=== PATIENT | female | born 1960 | race Caucasian/White ===

== ENCOUNTER 2017-07-01 11:54 | Emergency (ER) | payer MEDICAID, SELFPAY ==
[2017-07-01 11:55] VITALS: BP 94/57; PULSE 112; RESP 18; TEMP 38.3; O2SAT 97; BMI 27.4
--- NOTE | 2017-07-01 12:37 | RAD_ITS ---
STUDY: X-RAY CHEST REASON FOR EXAM: Female, 57 years old. One day history of fever, cough and dyspnea. TECHNIQUE: PA and lateral views of the chest. COMPARISON: None. FINDINGS: Hyperinflation. The lungs are clear. There is a pectus excavatum deformity. There is no demonstrated pleural abnormality. Normal size heart. Normal mediastinum and queenie. Normal visualized pulmonary arteries. There is atherosclerotic calcification of the aortic arch with tortuosity. Normal visualized thoracic spine. Normal visualized ribs, clavicles, and shoulders. There is no demonstrated abnormality of the visualized soft tissue structures of the upper abdomen. RAD/Chest PA and Lateral IMPRESSION: Hyperinflation. Pectus excavatum deformity. Electronically Signed: Jalen Garcia MD at 13:36 EDT Tel [phone], Service support ,
[2017-07-01 13:15] LABS: Mucous, Urine 0 SEEN /hpf (<or=2+); Red Blood Cells-Urine 0 SEEN /hpf (0-5)
[2017-07-01 13:19] LABS: Color, Urine Yellow (Yellow); Glucose, Dipstick Normal (Normal); Ketone-Dipstick Negative (Negative); Leukocyte Esterase-Dipstick 500 /ul (Negative); Nitrite-Dipstick Negative (Negative); Occult Blood-Urine 25 /ul (Negative); Protein-Dipstick 15 mg/dl (Negative); Urine Bilirubin Dipstick Negative (Negative); Urine Clarity Sl. Cloudy (Clear); Urine Urobilinogen Normal (Normal)
[2017-07-01 13:26] LABS: Bacteria 1+ /hpf (None Seen); Squamous Epithelial Cells - UA 5-10 SEEN /hpf (5-10); White Blood Cells 10-25 SEEN /hpf (0-5)
[2017-07-01 14:02] VITALS: BP 93/59; PULSE 89; RESP 16; TEMP 38; O2SAT 96
--- NOTE | 2017-07-01 14:19 | ED.VISSUMM ---
- ER Visit Summary Date of Service: 07/01/17 Chief Complaint: Upper respiratory infection and possible urinary tract infection History of Present Illness: The patient is a 57 F who presents with upper respiratory congestion and possible urinary tract infection that began yesterday. Patient states she has been having some fevers and chills at home yesterday. Patient states she has some aching all over. Patient states she has a history of frequent urinary tract infections and states this feels similar to those. Patient also admits to a headache and a productive cough. Patient is unsure of the color of the sputum. Patient denies any nausea or vomiting. Patient denies any other symptoms. Physical Examination: Vital signs show blood pressure 93/59 and a temperature of 100.4. Remaining vital signs are stable. Patient is in no acute distress. Oral mucosa is pink and moist. Tympanic membranes are clear bilaterally. Neck is supple. Trachea is midline. There is no JVD or lymphadenopathy. Heart was regular rate and rhythm. Lungs are clear and equal bilateral. There is good respiratory effort noted. Abdomen is soft. Bowel sounds are normal. There is no tenderness noted. There is no rebound or guarding noted. Cranial nerves II through XII are intact. There are no focal motor or sensory deficits noted. The remaining physical exam is within normal limits. Test Results: Urinalysis showed evidence of urinary tract infection. Chest x-ray does not show any acute cardiopulmonary process. Emergency Department Course and Treatment: Patient felt better on reevaluation. Patient was given a prescription for Cipro. Patient was instructed to follow-up with her primary care physician in 7-10 days. She understood and was agreeable with the plan. All questions were answered. Disposition: Discharge home Impression: Urinary tract infection This note was generated with [employer] dictation software. It may contain incorrect words, spelling, and punctuation that were not noted in review of the chart prior to signing ED Disposition - Plan for ED Patient: Disposition: Home or Assisted Living Chief Complaint: Cold Sx Diagnosis: Urinary tract infection Instructions: ED UTI Cystitis Female Prescriptions: Ciprofloxacin [Cipro] 500 mg PO BID 5 Days #10 tab Referrals: Care Physician,No Primary [Primary Care Provider] -
--- NOTE | 2017-07-01 14:27 | ED.DCSUM_ITS ---
- ER Visit Summary Date of Service: 07/01/17 Chief Complaint: Upper respiratory infection and possible urinary tract infection History of Present Illness: The patient is a 57 F who presents with upper respiratory congestion and possible urinary tract infection that began yesterday. Patient states she has been having some fevers and chills at home yesterday. Patient states she has some aching all over. Patient states she has a history of frequent urinary tract infections and states this feels similar to those. Patient also admits to a headache and a productive cough. Patient is unsure of the color of the sputum. Patient denies any nausea or vomiting. Patient denies any other symptoms. Physical Examination: Vital signs show blood pressure 93/59 and a temperature of 100.4. Remaining vital signs are stable. Patient is in no acute distress. Oral mucosa is pink and moist. Tympanic membranes are clear bilaterally. Neck is supple. Trachea is midline. There is no JVD or lymphadenopathy. Heart was regular rate and rhythm. Lungs are clear and equal bilateral. There is good respiratory effort noted. Abdomen is soft. Bowel sounds are normal. There is no tenderness noted. There is no rebound or guarding noted. Cranial nerves II through XII are intact. There are no focal motor or sensory deficits noted. The remaining physical exam is within normal limits. Test Results: Urinalysis showed evidence of urinary tract infection. Chest x- ray does not show any acute cardiopulmonary process. Emergency Department Course and Treatment: Patient felt better on reevaluation. Patient was given a prescription for Cipro. Patient was instructed to follow- up with her primary care physician in 7-10 days. She understood and was agreeable with the plan. All questions were answered. Disposition: Discharge home Impression: Urinary tract infection This note was generated with [employer] dictation software. It may contain incorrect words, spelling, and punctuation that were not noted in review of the chart prior to signing ED Disposition - Plan for ED Patient: Disposition: Home or Assisted Living Chief Complaint: Cold Sx Diagnosis: Urinary tract infection Instructions: ED UTI Cystitis Female Prescriptions: Ciprofloxacin [Cipro] 500 mg PO BID 5 Days #10 tab Referrals: Care Physician,No Primary [Primary Care Provider] -
[2017-07-01 14:29] VITALS: BP 139/87; PULSE 84; RESP 22; O2SAT 97
--- NOTE | 2017-07-01 14:30 | ED.RN ---
THIS NURSE REVIEWED D/C INSTRUCTIONS WITH PT. PT VERBALIZED UNDERSTANDING OF INSTRUCTIONS. PT DENIES FURTHER NEEDS OR QUESTIONS AT THIS TIME.
== END 2017-07-01 14:30 | disposition home or self-care (01) ==
PROVIDERS: Emergency Provider Emergency Medicine
DX: N39.0 Urinary tract infection, site not specified (principal); Z87.440 Personal history of urinary (tract) infections; Z72.0 Tobacco use
CPT/HCPCS: 71046; 81001; 99282

== ENCOUNTER 2017-07-06 15:10 | Emergency (ER) | payer MEDICAID, SELFPAY ==
[2017-07-06 15:10] VITALS: BP 108/57; PULSE 77; RESP 16; TEMP 36.6; O2SAT 99; BMI 26.8
--- NOTE | 2017-07-06 15:29 | RAD_ITS ---
STUDY: X-RAY CHEST REASON FOR EXAM: Female, 57 years old. Cough TECHNIQUE: Frontal and lateral views of the chest were obtained. COMPARISON: July 01, 2017 FINDINGS: The lungs are hyperinflated. There are no focal airspace opacities. There is no demonstrated pleural abnormality. The cardiac silhouette is normal in size. The mediastinum and hilar regions are unremarkable. Normal visualized pulmonary arteries. There is atherosclerotic calcification of the thoracic aorta. The thoracic spine is unremarkable. The visualized ribs, clavicles, and shoulders are unremarkable. There is no demonstrated abnormality of the visualized upper abdomen. RAD/Chest PA and Lateral IMPRESSION: There is no evidence of focal consolidation or pleural effusion. Stable hyperinflation. Electronically Signed: Sia Gold MD at 16:30 EDT Tel Direct: [phone], Service support ,
[2017-07-06] MEDS: 0.9% Normal Saline 1,000 ML 1000 ML IV (15:51)
[2017-07-06] MEDS: Morphine 4 MG/ML Syringe IV (15:51)
[2017-07-06] MEDS: Ondansetron 4 MG/2 ML Vial IV (15:51)
--- NOTE | 2017-07-06 15:53 | ED.VISSUMM ---
- ER Visit Summary Date of Service: 07/06/17 Chief Complaint: Back pain History of Present Illness: The patient is a 57 F with a 5 day history of left lower back pain. Patient was recently seen here for cough and UTI. She completed her course of Cipro and states she no longer has urinary symptoms. She does continue to have cough and states that her upper respiratory symptoms have not significantly improved. She now has left lower back pain that is worse with movement. It is not radiating to her leg. 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 She initially had fever but that has resolved with her antibiotic treatment. Physical Examination: Vital signs are unremarkable. Patient sitting upright in bed no acute distress. Head neck examination is grossly unremarkable. Heart is regular rate and rhythm. Lung sounds are clear with good air movement. Abdomen is soft with mild diffuse tenderness palpation. No guarding or rebound. Active bowel sounds are noted. Back examination was reproducible tenderness in the left lower lumbar paraspinals. She has no CVA tenderness. Extremity examination reveals normal strength and sensation throughout. She has strong distal pulses. Test Results: CBC was a white count of 3.4 with 58% lymphocytes. Chemistry studies reveal creatinine 1.4 which is consistent with her prior values. Urinalysis is a contaminated sample. She has 10-25 epithelial cells only 5-10 white blood cells. Chest x-ray reveals no focal consolidation. Emergency Department Course and Treatment: Patient was given IV fluids, morphine, and Zofran. On repeat evaluation she feels improved. She is reassured with the laboratory and x-ray findings. Patient will be given a short course of [place] for pain. We will avoid anti-inflammatories as she is only 1 functioning kidney. Treatment Plan: [] Disposition: Discharge Impression: 1. Viral URI with cough 2. Left lumbar paraspinal strain This note was generated with [employer] dictation software. It may contain incorrect words, spelling, and punctuation that were not noted in review of the chart prior to signing ED Disposition - Plan for ED Patient: Chief Complaint: Back Referrals: Care Physician,No Primary [Primary Care Provider] -
[2017-07-06 16:13] LABS: Absolute Lymphocyte Count 1.98 X10^3/ul (0.83-4.51); Absolute Neutrophil Count 1.1 X10^3/uL (2.0-7.7); Basophil# 0.01 X10^3/uL; Basophil% 0.3 % (0-1); Eosinophil# 0.01 X10^3/uL; Eosinophils% 0.3 % (0-5); Hematocrit 41.2 % (37-47); Hemoglobin 14.2 g/dl (12.0-15.0); Lymphocyte # 1.98 X10^3/ul (4.0); Lymphocyte % 58.8 % (19-41); Mean Corp Hgb Conc 34.5 g/gl (32-36); Mean Corpuscular Hgb 31.8 pg (27.0-32.0); Mean Corpuscular Volume 92.4 fL (81-99); Mean Platelet Vol. 12.5 fl (6.2-12.0); Monocyte# 0.29 X10^3/uL; Monocyte% 8.6 % (0-10); Neutrophil # 1.08 X10^3/uL (2.7-7.7); Platelet Count 117 K/mm3 (150-450); RBC Distribution Width CV 13.8 % (11.6-14.6); RBC Distribution Width SD 45.7 fl (35.1-43.9); Red Blood Count 4.46 M/mm3 (4.2-5.4); White Blood Count 3.4 K/mm3 (4.4-11.0)
[2017-07-06 16:14] LABS: POSITIVE COUNT NO; POSITIVE DIFFERENTIAL NO; POSITIVE MORPHOLOGY NO
[2017-07-06 16:25] LABS: Anion Gap 10 (5-15); BUN 16 mg/dL (7-18); BUN/Creat Ratio 11.4 RATIO (10-20); Calcium,Total 7.8 mg/dL (8.5-10.1); Chloride 107 mmol/L (98-107); EST Glomerular Filtration Rate 41 mL/min (>60); Est Glom Filt Rate - Afr Amer 50 mL/min (>60); Estimated Creatinine Clearance 38.28 ml/min; Glucose 83 mg/dL (74-106); Potassium 3.6 mmol/L (3.5-5.1); Sodium Level 142 mmol/L (136-145)
[2017-07-06 16:41] VITALS: BP 103/67; PULSE 64; RESP 16; O2SAT 94
[2017-07-06 16:44] LABS: Mucous, Urine 0 SEEN /hpf (<or=2+)
[2017-07-06 16:45] LABS: Color, Urine Yellow (Yellow); Glucose, Dipstick Normal (Normal); Ketone-Dipstick 5 mg/dl (Negative); Leukocyte Esterase-Dipstick 500 /ul (Negative); Nitrite-Dipstick Negative (Negative); Occult Blood-Urine 10 /ul (Negative); Protein-Dipstick 30 mg/dl (Negative); Urine Bilirubin Dipstick Negative (Negative); Urine Clarity Clear (Clear); Urine Urobilinogen 1 mg/dl (Normal)
[2017-07-06 16:54] LABS: Red Blood Cells-Urine 0-5 SEEN /hpf (0-5); White Blood Cells 5-10 SEEN /hpf (0-5)
[2017-07-06 16:55] LABS: Bacteria 2+ /hpf (None Seen); Squamous Epithelial Cells - UA 10-25 SEEN /hpf (5-10)
--- NOTE | 2017-07-06 17:27 | ED.DEP ---
ED Disposition - Plan for ED Patient: Disposition: Home or Assisted Living Chief Complaint: Back Instructions: ED Sprain Strain Lumbar, ED Upper Resp Infec No Abx Tx Prescriptions: Hydrocodone Bitart/Apap 5-325 [[place] 5/325] 1 - 2 tablet PO Q6H PRN PRN 4 Days #12 tablet PRN Reason: Pain Referrals: Fast,Zaira, DO [NON-STAFF] - As Needed
--- NOTE | 2017-07-06 17:29 | DCINST.ED_ITS ---
ED Disposition - Plan for ED Patient: Disposition: Home or Assisted Living Chief Complaint: Back Instructions: ED Sprain Strain Lumbar, ED Upper Resp Infec No Abx Tx Prescriptions: Hydrocodone Bitart/Apap 5-325 [[place] 5/325] 1 - 2 tablet PO Q6H PRN PRN 4 Days # 12 tablet PRN Reason: Pain Referrals: Fast,Zaira, DO [NON-STAFF] - As Needed
[2017-07-06 17:38] VITALS: BP 107/63; PULSE 70; RESP 16; O2SAT 93
== END 2017-07-06 17:38 | disposition home or self-care (01) ==
PROVIDERS: Emergency Provider Emergency Medicine
DX: S39.012A Strain of muscle, fascia and tendon of lower back, initial encounter (principal); J06.9 Acute upper respiratory infection, unspecified; R05 Cough; Z87.440 Personal history of urinary (tract) infections; Z85.54 Personal history of malignant neoplasm of ureter; Z72.0 Tobacco use; X58.XXXA Exposure to other specified factors, initial encounter; Y93.9 Activity, unspecified; Y92.9 Unspecified place or not applicable; Y99.9 Unspecified external cause status
CPT/HCPCS: 71046; 80048; 81001; 85025; 96361; 96374; 96375; 99284; J7030; J2405

== ENCOUNTER → 2017-08-19 14:45 | Outpatient (CLI) | payer MEDICAID, SELFPAY ==
--- NOTE | 2017-08-19 14:47 | CT_ITS ---
STUDY: CT ABDOMEN AND PELVIS WITHOUT CONTRAST REASON FOR EXAM: Female, 57 years old. Malignant neoplasm of the left ureter. RADIATION DOSAGE (If Supplied By Facility): CTDIvol = ( 9.60 ) mGy, DLP = ( 451.90 ) mGycm TECHNIQUE: Transaxial images were obtained from the dome of the diaphragm to the symphysis pubis without oral contrast, and without intravenous contrast. Sagittal and coronal images were reconstructed. Individualized dose optimization techniques were used for this CT. COMPARISON: None. FINDINGS: The lung bases are clear. A 1.5 cm area of low attenuation in the anterior segment of the right lobe of the liver. There are no dilated intrahepatic biliary radicles. The gallbladder is normal. The spleen, pancreas and both adrenals are normal. The right kidney is normal. Previous left nephrectomy. The stomach is normal. There is no bowel distention, acute appendicitis or diverticulitis. No abnormally constricting large bowel lesions. The abdominal wall is intact. There is no ascites, free intraperitoneal air or any evidence of epiploic appendagitis. The vascular structures in the retroperitoneum are normal The bones and joints seen are normal with no osteolytic or osteoblastic changes There is no retrocrural, retroperitoneal or mesenteric adenopathy. There is no mesenteric mistiness The urinary bladder is normal.. Previous hysterectomy There is no inguinal or pelvic adenopathy and there is no inguinal hernia. CT/Abdomen/Pelvis without Cont IMPRESSION: No acute findings in the abdomen or pelvis. Specifically there is no acute appendicitis or diverticulitis A 1.5 cm area of low-attenuation in the anterior segment of the right lobe of the liver.. Left nephrectomy Electronically Signed: Sonny Monreal, at 7:38 EDT Tel , Service support ,
== END ==
PROVIDERS: Visit Provider Urology
DX: C66.2 Malignant neoplasm of left ureter (principal)
CPT/HCPCS: 74176

== ENCOUNTER 2025-02-20 17:00 | Emergency (ER) | payer MEDICARE, MEDICAID, SELFPAY ==
[2025-02-20 17:05] VITALS: BP 116/59; PULSE 78; RESP 16; TEMP 36.6; O2SAT 97; BMI 23.9
[2025-02-20 18:28] VITALS: BP 113/64; PULSE 65; RESP 14; TEMP 36.6; O2SAT 99
--- NOTE | 2025-02-20 19:10 | RAD_ITS ---
PROCEDURE: TOE(S) MIN 2 VIEWS 02/20/2025 REASON FOR EXAM: 1ST TOE TECHNIQUE: Procedure Code: RADTO Modality: DX Procedure: TOE(S) MIN 2 VIEWS Laterality: Right COMPARISON: None. FINDINGS: No acute fracture or dislocation. Alignment is anatomic. Preserved visualized joint spaces. No aggressive osseous erosion or destruction. Grossly unremarkable soft tissues. RAD/Toe(s) Min 2 Views IMPRESSION: No acute or aggressive osseous abnormality. Reading Location: [id number]
--- OUTSIDE RECORDS SUMMARY | 2025-02-20 19:26 | XMS RPT_ITS | CCD ---
Author Organization [facility] Care Team Providers Care Global Climate Change Researcher Name Role Phone Primay Care Physicia, No Unavailable Unavail able Goodman, Boubacar Unavailable Unavailable Primay Care Physicia, No Unavailable Unavail able Clive Merchant Unavailable Unavailable Primay Care Physicia, No Unavailable Unavail able Sia Tay Unavailable Unavailable Primay Care Physicia, No Unavailable Unavail able Addi Ureña Unavailable Unavailable Addi Ureña Unavailable Unavailable ADDI UREÑA Attending Unavailable IMCA Referring Unavailable ADDI UREÑA Attending Unavailable IMCA Referring Unavailable ADDI UREÑA Attending Unavailable IMCA Referring Unavailable Tarah Root MD Primary Care Provider Tarah Root MD Primary Care Provider TARAH ROOT MD Primary Care Physician Tarah Root MD Primary Care Provider ISAIAH LONG MD Attending Unavailable TARAH ROOT MD. Primary Care Unavail able Tarah Root MD Primary Care Provider Podlogar APPLICATION SERVICES MANAGER.Carole PINTO Unavailable Karina APPLICATION SERVICES MANAGER.Alison PINTO Unavailable PODLOGAR, CAROLE Referring Unavailable TARAH ROOT Primary Care Unavailab le PODLOGCAROLE JOYCE Referring Unavailable TARAH ROOT Primary Care Unavailab le PODLOGCAROLE JOYCE Referring Unavailable TARAH ROOT Primary Care Unavailab le PODLOGARCAROLE Attending Unavailable TARAH ROOT Primary Care Unavailab LOKESH [place] Referring Unavailable TARAH ROOT Primary Care Unavailab le TARAH ROOT Primary Care Unavailab jagdish PLUMMER, LOKESH Attending Unavailable HERRERALOGCAROLE JOYCE Attending Unavailable TARAH ROOT Primary Care Unavailab CAROLE Howard Referring Unavailable TARAH ROOT Primary Care Unavailab le PODLOGCAROLE JOYCE Attending Unavailable TARAH ROOT Primary Care Unavailab TARAH [facility] Primary Care Unavailab LOKESH Ap[place] Attending Unavailable HERRERALOGMARIA DEL CARMEN, CAROLE Referring Unavailable TARAH ROOT Primary Care Unavailab le Allergies Allergy Classification Reported Allergen(s) Allergy Type Date of Onset Reaction(s) Facility (4 sources) Penicillins; Translations: [PENICILLINS] Drug allergy (disorder) 10-12-[address] [facility] Repository (2 sources) sulfamethoxazole Drug Allergy 12-31-[address] [facility] Repository (2 sources) trimethoprim Drug Allergy 12-31-[address] [facility] Repository (20 sources) Sulfamethoxazole / Trimethoprim; Translations: [SULFAMETHOXAZOLE-TR IMETHOPRIM] Drug Allergy 10-12-19 15 Vomiting [facility] Repository (20 sources) NITROFURANTOIN MONOHYD/M-CRYST; Translations: [NITROFURANTOIN MONOHYD/M-CRYST] Propensity to adverse reactions (disorder) 12-11-19 17 Unknown [facility] Repository (1 source) Penicillins Drug Allergy 10-12-19 15 [facility] Work Phone: (18 sources) Penicillins Drug Allergy 10-12-19 15 [facility] Work Phone: (7 sources) Penicillins Drug Allergy 10-12-19 15 [facility] Medications Current Medications Medication Drug Class(es) Dates Sig (Normalized) Sig (Original) atorvastatin 40 mg oral tablet (20 sources) HMG-CoA Reductase Inhibitor Start: 10-21-2023 End: 01-21-2025 take 1 tablet by mouth once daily at bedtime for hyperlipidemia atorvastatin (LIPITOR) 40 mg tablet Indications: Mixed hyperlipidemia Take 1 tablet by mouth daily at bedtime. For cholesterol. 90 tablet 3 01/27/2024 01/21/2025 Active Start: 10-29-2019 End: 04-09-2023 take 1 tablet by mouth once daily at bedtime for hyperlipidemia atorvastatin (LIPITOR) 40 mg tablet Take 1 tablet by mouth daily at bedtime. For cholesterol. 90 tablet 1 08/27/2022 03/10/2023 Discontinued Comment on above: Take 1 tablet by melissa daily at bedtime. For cholesterol. cephalexin 500 mg oral capsule (3 sources) Cephalosporin Antibacterial Start: End: take 1 capsule by mouth twice daily cephALEXin (KEFLEX) 500 mg capsule Indications: Urinary frequency Take 1 capsule by mouth two times a day for 5 days. 10 capsule 09/11/2024 09/16/2024 Active Start: 11-28-2022 End: 12-05-2022 take 1 capsule by mouth twice daily cephALEXin (KEFLEX) 500 mg capsule Indications: Burning with urination Take 1 capsule by mouth twice daily for 7 days. 14 capsule 0 11/28/2022 12/05/2022 Active Comment on above: Take 1 capsule by mo ut twice daily for 7 days. cholecalciferol 1.25 mg oral capsule (7 sources) Vitamin D Start: 022 End: 023 take 1 capsule by mouth every week cholecalciferol, Vitamin D3, (VITAMIN D3) 1,250 mcg (50,000 unit) cap capsule Indications: Vitamin D deficiency Take 1 capsule by mouth one time a week. 12 capsule 0 07/27/2021 08/27/2022 Discontinued (Course of therapy completed) Comment on above: Take 1 capsule by mo ut one time a week. ciprofloxacin 500 mg oral tablet (3 sources) Quinolone Antimicrobial Start: 025 End: 025 take 1 tablet by mouth twice daily ciprofloxacin HCl (CIPRO) 500 mg tablet Take 1 tablet by mouth two times a day for 5 days. 10 tablet 09/21/2024 09/26/2024 Active Start: 08-27-2022 End: 08-30-2022 take 1 tablet by mouth twice daily ciprofloxacin HCl (CIPRO) 250 mg tablet Indications: Frequent urination Take 1 tablet by mouth twice daily for 3 days. 6 tablet 08/27/2022 08/30/2022 cyclobenzaprine hydrochloride 10 mg oral tablet (3 sources) Muscle Relaxant Start: 11-22-2021 End: 12-06-2021 take 5 mg by mouth every twelve hours as needed cyclobenzaprine (FLEXERIL) 10 mg tablet Take 0.5 tablets by mouth twice daily as needed for muscle spasm for up to 14 days. 7 tablet 0 11/22/2021 12/06/2021 Active Comment on above: Take 0.5 tablets by mouth twice daily as needed for muscle spasm for up to 14 days. doxycycline hyclate 100 mg oral capsule (1 source) Tetracycline-cla ss Drug Start: 11-05-2024 End: 11-12-2024 take 1 capsule by mouth twice daily doxycycline hyclate (VIBRAMYCIN) 100 mg capsule Take 1 capsule by mouth two times a day for 7 days. 14 capsule 11/05/2024 11/12/2024 Active lidocaine 0.05 mg/mg medicated patch (3 sources) Antiarrhythmic, Amide Local Anesthetic Start: 11-22-2021 End: 12-06-2021 lidocaine (LIDODERM) 5 % Apply 1 Patch as directed once daily for 14 days. Remove old patch prior to placing new patch. Location: lower back place on for 12 hours then off for 12 hours 14 Patch 0 11/22/2021 12/06/2021 Active Comment on above: Apply 1 Patch as dir ected once daily for 14 days. Remove old patch prior to placing new patch. Location: lower back place on for 12 hours then off for 12 hours nystatin [id number] unt/ml oral suspension (1 source) Polyene Antifungal Start: 07-24-2021 End: 08-03-2021 nystatin (MYCOSTATIN) 100,000 unit/mL suspension Indications: Thrush (oral) Take 5 mL by mouth four times daily for 10 days. 1tsp swish in mouth for several minutes, then swallow (or expectorate) 4 times daily until gone. 473 mL 0 07/24/2021 08/03/2021 Active Comment on above: Take 5 mL by mouth f our times daily for 10 days. 1tsp swish in mouth for several minutes, then swallow (or expectorate) 4 times daily until gone. predniSONE 20 mg oral tablet (1 source) Start: 11-05-2024 End: 11-10-2024 take 2 tablets by mouth once daily predniSONE (DELTASONE) 20 mg tablet Take 2 tablets by mouth once daily for 5 days. 10 tablet 11/05/2024 11/10/2024 Active Completed/Discontinued Medications Medication Drug Class(es) Dates Sig (Normalized) Sig (Original) [id number] 200 actuat albuterol 0.09 mg/actuat metered dose inhaler (14 sources) beta2-Adrenergic Agonist Start: 03-12-2019 End: 03-11-2023 take 2 puff(s) by inhalation every four hours as needed albuterol HFA (VENTOLIN HFA) 90 mcg/actuation inhaler Indications: Chronic obstructive pulmonary disease, unspecified COPD type (HCC) Inhale 2 Puffs as instructed every 4 hours as needed. 1 Inhaler 1 03/12/2019 03/11/2023 Discontinued (Discontinued by Patient) Comment on above: Inhale 2 Puffs as in structed every 4 hours as needed. escitalopram 20 mg oral tablet (1 source) Serotonin Reuptake Inhibitor Start: 10-18-2020 End: 07-24-2021 take 1 tablet by mouth once daily escitalopram oxalate (LEXAPRO) 20 mg tablet Take 1 tablet by mouth once daily. 30 tablet 2 10/18/2020 07/24/2021 Discontinued 24 hr nicotine 0.875 mg/hr transdermal system (5 sources) Cholinergic Nicotinic Agonist Start: 08-27-2022 End: 03-11-2023 apply 1 dose transdermal route every twenty-four hours nicotine (NICODERM) 21 mg/24 hr Apply 1 Patch as directed every 24 hours. 42 Patch 08/27/2022 03/11/2023 Discontinued (Discontinued by Patient) Comment on above: Apply 1 Patch as dir ected every 24 hours. Problems Active Problems Problem Classification Problem Date Documented Da te Episodic/Chronic Adjustment disorders (20 sources) Adjustment disorder; Translations: [Adjustment disorder, unspecified] Onset: 03-19-2016 03-19-2016 Chronic Anxiety disorders (20 sources) Mixed anxiety and depressive disorder; Translations: [Other specified anxiety disorders] Onset: 03-19-2016 03-19-2016 Chronic Cancer of cervix (6 sources) Malignant tumor of cervix; Translations: [Malignant neoplasm of cervix uteri, unspecified] Onset: 10-11-2014 04-09-2021 Chronic Cancer of other urinary organs (7 sources) Malignant neoplasm of left ureter; Translations: [Malignant tumor of ureter] Onset: 10-11-2014 04-09-2021 Chronic Chronic kidney disease (20 sources) Chronic kidney disease stage 3; Translations: [Stage 3 chronic kidney disease] Onset: 04-03-2016 04-03-2016 Chronic Chronic kidney disease (1 source) Chronic kidney disease; Translations: [Stage 3b chronic kidney disease (HCC)] Onset: 11-14-2023 Chronic obstructive pulmonary disease and bronchiectasis (16 sources) Chronic obstructive lung disease; Translations: [Chronic obstructive pulmonary disease, unspecified] Onset: 10-11-2014 Resolved: 06-04-2019 04-24-2021 Chronic Disorders of lipid metabolism (20 sources) Hyperlipidemia; Translations: [Hyperlipidemia, unspecified] Onset: 03-12-2019 03-12-2019 Chronic Nutritional deficiencies (1 source) Vitamin D deficiency; Translations: [Vitamin D deficiency, unspecified] Chronic Other and unspecified benign neoplasm (1 source) History of polyp of colon; Translations: [Personal history of colonic polyps] 11-17-2023 Episodic Other circulatory disease (1 source) Other specified symptoms and signs involving the circulatory and respiratory systems; Translations: [Decreased pedal pulses] Onset: 02-10-2025 Episodic Other connective tissue disease (1 source) Pain of left forearm; Translations: [Pain in left forearm] 08-27-2022 Episodic Other connective tissue disease (2 sources) Dupuytren contracture of left palm; Translations: [Palmar fascial fibromatosis [Dupuytren]] 09-21-2024 Episodic Other connective tissue disease (1 source) Pain in right foot; Translations: [Foot pain, right] Onset: 02-01-2025 Episodic Other lower respiratory disease (2 sources) Cough; Translations: [Acute cough] 11-05-2024 Episodic Other non-traumatic joint disorders (1 source) Pain of left wrist; Translations: [Pain in left wrist] 08-27-2022 Episodic Other non-traumatic joint disorders (1 source) Pain in left knee; Translations: [Pain in joint, lower leg] 01-17-2021 Episodic Other non-traumatic joint disorders (2 sources) Hip pain; Translations: [Pain in right hip] 09-28-2024 Episodic Other non-traumatic joint disorders (1 source) Pain in right hip; Translations: [Right hip pain] Onset: 02-01-2025 Episodic Other screening for suspected conditions (not mental disorders or infectious disease) (3 sources) Patient encounter status; Translations: [Encounter for screening mammogram for malignant neoplasm of breast] Onset: 02-09-2025 Episodic Other skin disorders (1 source) Ingrowing nail; Translations: [Ingrown nail of great toe of right foot] Onset: 02-01-2025 Episodic Retinal detachments; defects; vascular occlusion; and retinopathy (20 sources) Central serous chorioretinopathy; 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, right eye] 10-18-2020 Chronic Spondylosis; intervertebral disc disorders; other back problems (20 sources) Cervical spondylosis without myelopathy; Translations: [Spondylosis without myelopathy or radiculopathy, cervical region] Onset: 04-24-2016 04-24-2016 Chronic Unclassified (1 source) Acute cough; Translations: [Acute cough] Onset: 11-05-2024 Past or Other Problems Problem Classification Problem Date Documented Da te Episodic/Chronic Acquired foot deformities (20 sources) Right foot drop; Translations: [Foot drop, right foot] Onset: 10-11-2014 04-09-2021 Episodic Cancer of cervix (20 sources) History of malignant neoplasm of cervix; Translations: [Personal history of malignant neoplasm of cervix uteri] Onset: 10-11-2014 05-10-2022 Episodic Cancer of other urinary organs (20 sources) History of malignant neoplasm of ureter; Translations: [Personal history of malignant neoplasm of ureter] Onset: 10-11-2014 05-10-2022 Episodic Genitourinary symptoms and ill-defined conditions (6 sources) Microscopic hematuria; Translations: [Other microscopic hematuria] Onset: 09-11-2024 Episodic Intestinal infection (20 sources) Infection caused by Helicobacter pylori; Translations: [Other specified bacterial intestinal infections] Onset: 10-09-2017 10-09-2017 Episodic Other connective tissue disease (1 source) Palmar fascial fibromatosis [Dupuytren]; Translations: [Dupuytren's contracture of left hand] Onset: 09-21-2024 Episodic Other upper respiratory infections (2 sources) Acute upper respiratory infection; Translations: [Acute upper respiratory infection, unspecified] Onset: 11-05-2024 11-05-2024 Episodic Residual codes; unclassified (20 sources) Tobacco use and exposure - finding; Translations: [Tobacco use] Onset: 04-03-2016 04-03-2016 Episodic Residual codes; unclassified (20 sources) History of nephrectomy; Translations: [Acquired absence of kidney] Onset: 04-03-2016 04-03-2016 Episodic Spondylosis; intervertebral disc disorders; other back problems (20 sources) Dorsalgia, unspecified; Translations: [Neck pain] Onset: 10-11-2014 04-09-2021 Episodic Urinary tract infections (2 sources) Acute cystitis; Translations: [Acute cystitis without hematuria] Onset: 09-11-2024 09-11-2024 Episodic Results Test Name Value Interpretation Reference Range Facility [facility] 2024 [facility] Non-Invasive Vascula r Laboratory [facility] Lower Extremity Arterial Physiology Study Bilateral/Complete Date of service/time: 02/10/2025 8:47:07 AM Name: MS. TERRY JOE Date of : 1960 Age: 64 years Gender: F Clinical Indication Pain in leg and decreased pulses. TECHNIQUE -------- An arterial physiological examination was performed, including measurement of blood pressures using continuous wave Doppler and recording of plethysmographic with or without Doppler waveforms at the below-mentioned limb segments. FINDINGS -------- RIGHT SIDE AT REST Right Doppler Waveforms Dorsalis pedis: Monophasic. Post tibial: Monophasic. Right Pressures Brachial: 112 mmHg High thigh: 89 mmHg Low thigh: 78 mmHg Calf: 77 mmHg Ankle dorsalis pedis: 66 mmHg STEPHANIE: 0.56 Ankle posterior tibial: 80 mmHg STEPHANIE: 0.68 Digit: 0 mmHg Right PVR Waveforms High thigh: Moderately dampened. Low thigh: Moderately dampened. Calf: Moderately dampened. Ankle: Moderately dampened. Transmetatarsal: Moderately dampened. Digit: Severely dampened. LEFT SIDE AT REST Left Doppler Waveforms Dorsalis pedis: Multiphasic. Post tibial: Multiphasic. Left Pressures Brachial: 117 mmHg High thigh: 131 mmHg Low thigh: 133 mmHg Calf: 124 mmHg Ankle dorsalis pedis: 114 mmHg STEPHANIE: 0.97 Ankle posterior tibial: 123 mmHg STEPHNAIE: 1.05 Digit: 90 mmHg Left PVR Waveforms High thigh: Normal. Low thigh: Normal. Calf: Normal. Ankle: Normal. Transmetatarsal: Normal. Digit: Mildly dampened. IMPRESSION The patient has an STEPHANIE consistent with a diagnosis of peripheral artery disease. Consider referral to a vascular specialist for evaluation unless already implemented. RIGHT SIDE Resting right ankle brachial index: 0.68 Right toe brachial index: 0.00 Abnormal ankle brachial index at rest diagnostic of peripheral artery disease. Abnormal toe brachial index at rest is evidence of peripheral artery disease. -Unable to obtain pressure due to severe toe tracing. Right ankle: Moderate disease at rest. Right iliofemoral disease. LEFT SIDE Resting left ankle brachial index: 1.05 Left toe brachial index: 0.77 Normal ankle brachial index at rest in the left leg. Normal toe brachial index at rest in the left leg. Left ankle: Normal at rest. Technologist: Yumi Espitia RVT, [facility] Ordering physician: CAROLE PARTIDA Interpreting physician: Augustine Durant MD, MARIO Final CC [employer] Medical Image : [id number] See Link below for Image Normal [facility] MRI HIP WO IVCON RTon 2024 MRI HIP WO IVCON RT * * *Final Report* * * DATE OF EXAM: Feb 09 2025 7:38AM [facility] 0207 - MRI HIP WO IVCON RT / PROCEDURE REASON: Abnormal bone xray * * * * Physician Interpretation * * * * EXAMINATION: MRI HIP WO IVCON RT HISTORY: NKI, NO SX, PAIN RT HIP AREA, DIFF WALKING, RT LEG GIVES OUT Abnormal bone xray . TECHNIQUE: MRI HIP WO IVCON RT COMPARISON: RESULT: Bone Marrow: Tiny area of avascular necrosis in the left femoral head without collapse. Mild edema in the right femoral neck without discrete fracture line may represent minimal stress reaction. Hip Joint(s): Degeneration and degenerative tearing of the anterior superior acetabular labrum. Mild chondral degeneration of the right hip joint. Tendons: Minimal hamstring origin and distal gluteal tendinosis bilaterally. No acute tendon injury. Musculature: No acute muscle injury. Maintained signal and muscle bulk. Sacroiliac joints: Maintained with normal signal. Pubic symphysis: Maintained with normal signal. Ischiofemoral Space: Maintained with normal signal. Other Pelvic Findings: No enlarged pelvic lymph nodes or abnormal pelvic fluid. IMPRESSION: MILD RIGHT HIP DEGENERATIVE CHANGE DESCRIBED. MINIMAL STRESS REACTION THE RIGHT FEMORAL NECK. Capacitor Assembler: [facility] Transcribe Date/Time: Feb 09 2025 8:04A Dictated by : CARYL SANTANA MD This examination was interpreted and the report reviewed and electronically signed by: CARYL SANTANA MD on Feb 09 2025 8:12AM EST [id number] Normal [facility] CNOVon 02-01-2025 CNOV Office Visit (FAMJaylinWS ) HEATHTERRY M ([id number]) 1960 [address] [facility] Date Time Provider Department 02/01/25 12:00 PM CAROLE PARTIDA During your visit today, we recorded the following information about you: Temperature Pulse Respiration Blood pressure 97.7 degrees 80/minute 18/minute 118/70 Weight 63.1 kg Carole Partida APRN.[facility] 02/01/2025 12:09 PM Signed 02/01/2025 Patient presents with: Pain (foot): Right foot x few weeks Recording using [employer] software for draft documentation of the visit was discussed with the patient/authorized promotions representative; all questions welcomed and answered. Patient/authorized promotions representative agreed to proceed SUBJECTIVE: This is a 64 year old that is here today for Above Complaints. Terry is a 64-year-old female with a history of foot drop, presenting with right foot pain and ecchymosis. Right Foot Pain and Ecchymosis: - Reports chronic issues with an ingrown toenail on the right foot. - Recent exacerbation with the toenail busting up, leading to ecchymosis and pain. - Denies any known trauma or injury to the foot. - Ecchymosis is described as purple and extends from the toe upwards. - Pain is described as real tender and is aggravated by ambulation. - Applying lotion to the affected area; denies signs of infection. - Denies any history of leg aching. - Reports feeling really cold at times. Foot Drop: - History of foot drop following a hysterectomy at [facility] nearly 20 years ago. - Surgery reportedly lasted 10 hours, during which Terry was in [facility] for an extended period. - Postoperatively, Terry experienced inability to feel or move the right leg, leading to a fall in the hospital. - Required a brace from [employer] and physical therapy three times a week to regain ambulation. - Reports persistent numbness in the top of the right foot and big toe. - Describes ongoing difficulty with ambulation, stating, I still don't walk right, I mean, I could be walking and I'll fall down. - Denies any known trauma or injury to the foot. Hysterectomy Complications: - Hysterectomy complicated by ureteral injury, requiring reconstruction by Dr. Ureña, a floor finisher. 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 - Required two catheters postoperatively due to ureteral injury. - Describes the postoperative period as horrible, with significant pain, fever, and blood loss. - Reports a prolonged recovery period, stating, It took me 7 months to get to walking again after that surgery. Tobacco Use: - Current smoker. 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 Manuel Central serous chorioretinopathy of right eye [facility] Cervical cancer ([facility]) 2007 CKD (chronic kidney disease) stage 3, GFR 30-59 ml/min ([facility]) Degenerative cervical disc Depression Emphysema (subcutaneous) (surgical) resulting from a procedure Foot drop, right H. 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 For cholesterol. No current facility-administered medications for this visit. Medications and allergies reviewed by this provider. SOCIAL HISTORY SOCIAL HISTORY[1] REVIEW OF SYSTEMS All other reviewed and negative other than HPI. OBJECTIVE: BP 118/70 Pulse 80 Temp 36.5 ?C (97.7 ?F) Resp 18 Wt 63.1 kg (139 lb 3.2 oz) SpO2 96% BMI 23.89 kg/m? . Vital signs reviewed by this provider. GENERAL: NAD, alert and oriented. RIGHT FOOT: No obvious deformity. TTP nail fold great toe without erythema, drainage or excessive warmth. Small amount of ecchymosis medial [address] metatarsal. 1+ pedal pulse with cap refill WNL. Left pedal pulse 2+ DTaP,Tdap,Td Vaccine(1 - Tdap) Never done Shingrix Vaccine(1 of 2) Never done Medicare Annual Wellness Visit Never done Mammogram Screening due on 04/23/2020 Colorectal Cancer Screening due on 04/17/2021 Cervical Cancer Screening due on 06/07/2022 Influenza Vaccine(1) due on 12/13/2024 Covid-19 Vaccine( season) due on 12/13/2024 Serum Creatinine due on 09/21/2025 Hemoglobin/Hematocrit due on 09/21/2025 Annual PCP Team Chronic Disease Visit due on 09/28/2025 Diabetes Screening due on 09/22/2027 Lipid Screening due on 03/24/2029 RSV Vaccine(1 - 1-dose 75+ series) due on 02/11/2035 Hepatitis C Screening Completed HIV Screening Completed Pneumococcal Vaccine: 50+ Completed 1. Foot pain, right (M79.671) 2. Decreased pedal puls (more content not included)... Normal [facility] XR FOOT 3V AP/LAT/OBL RTon 1 XR FOOT 3V AP/LAT/OBL RT * * *Final Report* * * DATE OF EXAM: Feb 01 2025 3:56PM WOX [id number] - XR FOOT 3V AP/LAT/OBL RT / PROCEDURE REASON: Foot pain, right * * * * Physician Interpretation * * * * EXAMINATION / TECHNIQUE: XR FOOT 3V AP/LAT/OBL RT HISTORY: hip and foot pain Foot pain, right COMPARISON: None. RESULT: No acute fracture or osseous malalignment is identified. The joint spaces are preserved. No osseous erosion. IMPRESSION: No acute bony abnormality. Capacitor Assembler: [facility] Transcribe Date/Time: Feb 07 2025 7:16P Dictated by : PAOLA PERALTA MD This examination was interpreted and the report reviewed and electronically signed by: PAOLA PERALTA MD on Feb 07 2025 7:16PM EST [id number] Normal [facility] XR HIP 3V PELV+ AP/LAT RTon 02-01-2025 XR HIP 3V PELV+ AP/LAT RT * * *Final Report* * * DATE OF EXAM: Feb 01 2025 3:56PM WOX 5352 - XR HIP 3V PELV+ AP/LAT RT / PROCEDURE REASON: Right hip pain * * * * Physician Interpretation * * * * EXAMINATION / TECHNIQUE: XR HIP 3V PELV+ AP/LAT RT HISTORY: hip and foot pain Right hip pain COMPARISON: 11/22/2021. FINDINGS: No acute fracture or malalignment is identified. The hip joint spaces are maintained. Unchanged focus of left femoral head osteonecrosis without articular surface collapse. The sacroiliac joints and symphysis pubis are intact. IMPRESSION: No acute bony abnormality or significant hip osteoarthritis. Unchanged focus of left femoral head osteonecrosis without articular surface collapse. Capacitor Assembler: [facility] Transcribe Date/Time: Feb 07 2025 7:14P Dictated by : PAOLA PERALTA MD This examination was interpreted and the report reviewed and electronically signed by: PAOLA EPRALTA MD on Feb 07 2025 7:15PM EST [id number] Normal [facility] CNOVon 11-05-2024 CNOV Office Visit (WOUCA) TERRY JOE ([id number]) [address] [facility] Date Time Provider Department 11/05/24 3:45 PM LOKESH PLUMMER During your visit today, we recorded the following information about you: Temperature Pulse Respiration Blood pressure 99.1 degrees 74/minute 18/minute 102/62 Weight 63.4 kg Lokesh Plummer APRN.TREATMENT TECHNICIAN 11/05/2024 4:18 PM Signed [facility] Subjective Terry Joe is a 64 year old female. Patient presents with: Cough: Chest congestion, runny nose x6 days HPI Cough and Chest Congestion: - Cough and chest congestion x6 days. - Sore throat, rhinorrhea, sneezing, and wheezing. - Wheezing noted before severe coughing episodes. - Denies odynophagia. - Fatigue noted yesterday, described as just couldn't hardly go. - Denies taking any medications for symptoms. - Grandson had similar symptoms; chest x-ray performed, but no diagnosis given. Dyspnea: - Dyspnea noted, especially when unable to expectorate sputum. - Dyspnea exacerbated by physical activity. COPD: - Previous diagnosis of COPD, but Dr. Root reportedly stated she does not have it. - Smoker, but has reduced smoking since onset of current symptoms. Review of Systems Constitutional: (+) fatigue Ears/Nose/Mouth/Throat: (+) sore throat, (+) rhinorrhea, (+) sneezing, (-) odynophagia Respiratory: (+) cough, (+) chest congestion, (+) exertional dyspnea, (+) wheezing Objective BP 102/62 Pulse 74 Temp 37.3 ?C (99.1 ?F) Resp 18 Wt 63.4 kg (139 lb 12.4 oz) SpO2 97% BMI 23.99 kg/m? Physical Exam General: No acute distress. HEENT: Ears and throat normal. CV: Normal heart sounds. Resp: Left lower lobe wheezing. { 1. Acute cough (R05.1) 2. URI, acute (J06.9) 3. Acute exacerbation of chronic obstructive pulmonary disease (HCC) (J44.1) - Acute cough, rhinorrhea, sneezing, and sore throat for 6 days; increased fatigue and mild dyspnea on exertion; left lower lobe wheezing on exam. - Chest X-ray negative for pneumonia. - Start doxycycline BID for 7 days. - Start steroids. - Viral testing for COVID, influenza A/B, and RSV offered. - Educated patient on antibiotic use. and Recording using [employer] software for draft documentation of the visit was discussed with the patient/authorized promotions representative; all questions welcomed and answered. Patient/authorized promotions representative agreed to proceed MDM Procedures Lokesh Plummer APRN.CNP 11/05/2024 5:45 PM Signed Addended by: LOKESH PLUMMER on: 11/05/2024 05:45 PM Modules accepted: Orders Allergies As of Date: 11/05/2024 Noted Allergy Reaction BACTRIM (SULFAMETHOXAZOLE-TRIMETH*0 10/11/2014 11 - Vomiting MACROBID (NITROFURANTOIN MONOHYD/*12/10/2016 16 - Unknown PENICILLINS 10/11/2014 2 - Rash Date Reviewed: 11/05/2024 Reviewed by: Racquel Clark MA - Fully Assessed Reason for Visit: Cough [28] Cmt: Chest congestion, runny nose x6 days Primary Visit Diagnosis:Acute cough [R05.1] Other Visit Diagnoses:URI, acute [J06.9] Acute exacerbation of chronic obstructive pulmonary disease (HCC) [J44.1] Order(s):XR CHEST 2V FRONTAL/LAT [[id number]] Order #: [id number] FUTURE doxycycline hyclate (VIBRAMYCIN) 100 mg capsuleTake 1 capsule by mouth two times a day for 7 days.Disp: 14 capsuleRfl: 0 predniSONE (DELTASONE) 20 mg tabletTake 2 tablets by mouth once daily for 5 days.Disp: 10 tabletRfl: 0 COVID AND INFLUENZA A/B AND RSV PCR, ROUTINE [SQCVFLRS] Order #: [id number]. #:[id number] Prescriptions as of 11/05/2024 - doxycycline hyclate (VIBRAMYCIN) 100 mg capsule Take 1 capsule by mouth two times a day for 7 days. - predniSONE (DELTASONE) 20 mg tablet Take 2 tablets by mouth once daily for 5 days. - atorvastatin (LIPITOR) 40 mg tablet Take 1 tablet by mouth daily at bedtime. For cholesterol. Problem List As Of Date 11/05/2024 Noted Resolved History of cancer of ureter [Z85.54] 10/11/2014 History of cervical cancer [Z85.41] 10/11/2014 Foot drop, right [M21.371] 10/11/2014 COPD (chronic obstructive pulmonary disease) (H*10/11/2014 06/04/2019 Cervical pain [M54.2] 10/11/2014 Depression with anxiety [F41.8] 03/19/2016 Adjustment disorder [F43.20] 03/19/2016 Tobacco use [Z72.0] 04/03/2016 S/p nephrectomy [Z90.5] 04/03/2016 Stage 3 chronic kidney disease [N18.30] 04/03/2016 Spondylosis of cervical region without myelopat*04/24/2016 H. pylori infection [A04.8] 10/09/2017 Hyperlipidemia [E78.5] Central serous chorioretinopathy of right eye [* Stage 3b chronic kidney disease (HCC) [N18.32] 11/14/2023 Prescriptions ordered this encounter Disp Refills Start End DOXYCYCLINE HYCLATE 100 MG CAPSULE 14 c* 0 11/05/2024 11/12/2024 Route: PO Sig: Take 1 capsule by mouth two times a day for 7 days. PREDNISONE 20 MG TABLET 10 t* 0 11/05/2024 11/10/2024 Route: PO Sig: Take 2 tablets by mouth once daily for 5 d (more content not included)... Normal [facility] XR CHEST 2V FRONTAL/LATon XR CHEST 2V FRONTAL/LAT * * *Final Report* * * DATE OF EXAM: Nov 05 2024 3:56PM WOX 5291 - XR CHEST 2V FRONTAL/LAT / PROCEDURE REASON: Acute cough * * * * Physician Interpretation * * * * EXAMINATION: CHEST RADIOGRAPH (2 VIEW FRONTAL and LATERAL) CLINICAL HISTORY: Cough MQ: XC2_6 EXAM DATE/TIME: 11/05/2024 3:56 PM COMPARISON: Chest x-ray dated 03/12/2019 RESULT: Lines, tubes, and devices: None. Lungs and pleura: No consolidation. No lung mass. No pleural effusion. No pneumothorax. Cardiomediastinal silhouette: Normal cardiomediastinal silhouette. Bones and soft tissues: No acute abnormality IMPRESSION: No acute radiographic abnormality. Capacitor Assembler: ALAN Transcribe Date/Time: Nov 05 2024 3:56P Dictated by : SMOOTH POWERS MD This examination was interpreted and the report reviewed and electronically signed by: SMOOTH POWERS MD on Nov 05 2024 3:57PM EST [id number] Normal [facility] XR Chest PA and Lateralon Radiology Study observation (narrative) [facility] IMPRESSION: No acute radiographic abnormality. Capacitor Assembler: ALAN Transcribe Date/Time: Nov 05 2024 3:56P Dictated by : SMOOTH POWERS MD This examination was interpreted and the report reviewed and electronically signed by: SMOOTH POWERS MD on Nov 05 2024 3:57PM EST DIVISION OF RADIOLOGY * * *Final Report* * * DATE OF EXAM: Nov 05 2024 3:56PM WOX 5291 - XR CHEST 2V FRONTAL/LAT / PROCEDURE REASON: Acute cough * * * * Physician Interpretation * * * * EXAMINATION: CHEST RADIOGRAPH (2 VIEW FRONTAL & LATERAL) CLINICAL HISTORY: Cough MQ: XC2_6 EXAM DATE/TIME: 11/05/2024 3:56 PM COMPARISON: Chest x-ray dated 03/12/2019 RESULT: Lines, tubes, and devices: None. Lungs and pleura: No consolidation. No lung mass. No pleural effusion. No pneumothorax. Cardiomediastinal silhouette: Normal cardiomediastinal silhouette. Bones and soft tissues: No acute abnormality DIVISION OF RADIOLOGY Provider, [facility] - 11/05/2024 * * *Final Report* * * DATE OF EXAM: Nov 05 2024 3:56PM WOX 5291 - XR CHEST 2V FRONTAL/LAT / PROCEDURE REASON: Acute cough * * * * Physician Interpretation * * * * EXAMINATION: CHEST RADIOGRAPH (2 VIEW FRONTAL & LATERAL) CLINICAL HISTORY: Cough MQ: XC2_6 EXAM DATE/TIME: 11/05/2024 3:56 PM COMPARISON: Chest x-ray dated 03/12/2019 RESULT: Lines, tubes, and devices: None. Lungs and pleura: No consolidation. No lung mass. No pleural effusion. No pneumothorax. Cardiomediastinal silhouette: Normal cardiomediastinal silhouette. Bones and soft tissues: No acute abnormality IMPRESSION IMPRESSION: No acute radiographic abnormality. Capacitor Assembler: ALAN Transcribe Date/Time: Nov 05 2024 3:56P Dictated by : SMOOTH POWERS MD This examination was interpreted and the report reviewed and electronically signed by: SMOOTH POWERS MD on Nov 05 2024 3:57PM EST [facility] XR Chest PA and LateralOrder ed By: [facility] Provider on 11-05-2024 [facility] CNOVon 09-28-2024 CNOV Office Visit (FAMPWS ) TERRY JOE ([id number]) 1960 F [facility] Date Time Provider Department 09/28/24 11:20 AM CAROLE PARTIDA During your visit today, we recorded the following information about you: Pulse Respiration Blood pressure Weight 83/minute 18/minute 114/68 64.4 kg Carole Partida APRN.CNP 09/28/2024 12:21 PM Signed 09/28/2024 Patient presents with: Hip Pain: And right leg pain x couple months Recording using [employer] software for draft documentation of the visit was discussed with the patient/authorized promotions representative; all questions welcomed and answered. Patient/authorized promotions representative agreed to proceed SUBJECTIVE: This is a 64 year old that is here today for Above Complaints. Right Hip Pain and Leg Heaviness: - Onset: Approximately one month ago. - Pain begins after walking for 5-10 minutes; described as a feeling of the leg dragging and becoming heavy. - Aggravated by inclines and steps; alleviated by rest. - No known trauma or injury to the hip. - Terry denies swelling over the hip or back pain. - Taking Tylenol for pain management. - No previous imaging of the hip. - Terry denies numbness or tingling in the leg. Foot Drop: - Developed after a hysterectomy in 2007, which also involved reconstructive surgery on the ureters. - Required physical therapy to regain the ability to walk. - Persistent numbness in the toe and some parts of the foot since the surgery. 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 Manuel Central serous chorioretinopathy of right eye [facility] Cervical cancer ([facility]) 2007 CKD (chronic kidney disease) stage 3, GFR 30-59 ml/min ([facility]) Degenerative cervical disc Depression Emphysema (subcutaneous) (surgical) resulting from a procedure Foot drop, right H. 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 For cholesterol. No current facility-administered medications for this visit. Medications and allergies reviewed by this provider. SOCIAL HISTORY Social History Tobacco Use Smoking status: Every Day Current packs/day: 0.50 Average packs/day: 0.5 packs/day for 30.0 years (15.0 ttl pk-yrs) Types: Cigarettes Smokeless tobacco: Never Tobacco comments: failed chantix Vaping Use Vaping status: Never Used Substance Use Topics Alcohol use: No Drug use: No REVIEW OF SYSTEMS All other reviewed and negative other than HPI. OBJECTIVE: BP 114/68 Pulse 83 Resp 18 Wt 64.4 kg (142 lb) SpO2 94% BMI 24.37 kg/m? . Vital signs reviewed by this provider. GENERAL: NAD, alert and oriented. SKIN: Unremarkable, no rash or skin lesions. HEAD: Normocephalic. EYES: Conjunctiva clear. EXTREMITIES: Normal, no deformities, no skin discoloration, no edema. Good strength in lower extremities. Slight pain on internal rotation of the right hip. Able to walk on tiptoes and heels. No foot dropped noted. 2+ pedal pulses. No clunking of hip with movement NEURO: Awake, alert and oriented x3, normal gait, no involuntary motions. Reflexes intact. Normal sensation. No muscle wasting noted. 1. Right hip pain (M25.551) - Onset approximately one month ago, exacerbated by walking and inclines; no history of hip surgery or trauma. - Physical exam reveals good strength and mobility; mild discomfort on internal rotation and flexion of the right hip. - Ordered X-ray of the right hip to evaluate for potential arthritis or other bony abnormalities. - Continue Tylenol for pain management. - Will consider physical therapy based on X-ray findings. 2. Foot drop, right foot (M21.371) - none noted on exam today - Chronic condition since 2007 following hysterectomy; associated with partial numbness in the toe and foot. - No new interventions at this time. Carole Partida, APPLICATION SERVICES MANAGER.TREATMENT TECHNICIAN Prescription instructions reviewed with patient as applicable. Patient advised if symptoms do not improve or if symptoms worsen sooner, to contact their primary care physician. Potential red flag symptoms discussed with the patient. Reviewed appropriate action plan to take if red flag symptoms occur. Patient agreeable to treatment plan. Medical Decision Making: Problems: Moderate: New problem with uncertain prognosis Data: Unique test(s) ordered: 1 Risk: Low: Low risk from testing/treatment Medical Decision Making Level: 3 - Low Allergies As of Date: 09/28/2024 Noted Allergy Reaction BACTRIM (SULFAMETHOXAZOLE- (more content not included)... Normal [facility] Bacteria Ur Culton Bacteria identified Cx Nom (U) ORGANISM ID: 1 10,000 -<50,000 CFU/ml Klebsiella pneumoniae ORGANISM ID: 1 (KLEBSIELLA PNEUMONIAE) --------- ANTIBIOTIC INTERPRETATION CHERYL STATUS REFERENCE RANGE --------- Ampicillin R F Cefazolin S <=4 F Susceptible 0-16 , Intermediate <0 or >16 , Resistant >16 For uncomplicated urinary tract infections, cefazolin results can be used to predict susceptibility or resistance to cephalexin. Ceftriaxone S <=1 F Susceptible <=1 , Intermediate >1 , Resistant >=4 Cefepime S <=1 F Susceptible <=2 , Susceptible-Dose Dependent >2 , Resistant >=16 Ertapenem S <=0.5 F Susceptible <=0.5 , Intermediate >.5 , Resistant >1 Meropenem S <=0.25 F Susceptible <=1 , Intermediate >1 , Resistant >2 Ampicillin/Sulbact S <=2 F Susceptible <=8 , Intermediate >8 , Resistant >16 Piperacillin/Tazobac S <=4 F Susceptible <16 , Susceptible-Dose Dependent >=16 , Resistant >=32 Gentamicin S <=1 F Susceptible <=2 , Intermediate >2 , Resistant >=8 Tobramycin S <=1 F Susceptible <4 , Intermediate >=4 , Resistant >=8 Trimeth sulfameth S <=20 F Susceptible <=40 , Resistant >40 Ciprofloxacin S <=0.25 F Susceptible <0.5 , Intermediate >=.5 , Resistant >=1 Nitrofurantoin I 64 F Susceptible <=32 , Intermediate >32 , Resistant >64 Abnormal [facility] Comment on above: Performed By: #### 6 30-4 ####[facility] LABCLIA [id number] [place] [address] [place] CBC W Auto Differential pane l (Bld)on 09-21-2024 Basophils (Bld) [#/Vol] 0.04 10*3/uL [facility] Basophils/100 WBC (Bld) 0.4 % [facility] Differential cell count method Nom (Bld) Auto [facility] Eosinophils (Bld) [#/Vol] 0.1 10*3/uL [facility] Eosinophils/100 WBC (Bld) 1 % [facility] Erythrocyte distribution width (RBC) [Ratio] 13.2 % 11.5 - 15.0 % [facility] Hematocrit (Bld) [Volume fraction] 42.5 % 36.0 - 46.0 % [facility] Hemoglobin (Bld) [Mass/Vol] 13.9 g/dL 11.5 - 15.5 g/dL [facility] Immature granulocytes (Bld) [#/Vol] 0.04 10*3/uL [facility] Immature granulocytes/100 WBC (Bld) 0.4 % [facility] Lymphocytes (Bld) [#/Vol] 2.63 10*3/uL [facility] Lymphocytes/100 WBC (Bld) 25.4 % [facility] MCH (RBC) [Entitic mass] 31.4 pg 26.0 - 34.0 pg [facility] MCHC (RBC) [Mass/Vol] 32.7 g/dL 30.5 - 36.0 g/dL [facility] MCV (RBC) [Entitic vol] 95.9 fL 80.0 - 100.0 fL [facility] Monocytes (Bld) [#/Vol] 0.47 10*3/uL NINF [facility] Monocytes/100 WBC (Bld) 4.5 % [facility] Neutrophils (Bld) [#/Vol] 7.06 10*3/uL [facility] Neutrophils/100 WBC (Bld) 68.3 % [facility] Nucleated RBC (Bld) [#/Vol] NINF [facility] Nucleated RBC/100 WBC (Bld) [Ratio] 0 % /100 WBC [facility] Platelet mean volume (Bld) [Entitic vol] 11.7 fL 9.0 - 12.7 fL [facility] Platelets (Bld) [#/Vol] 283 10*3/uL [facility] RBC (Bld) [#/Vol] 4.43 10*6/uL 3.90 - 5.2 0 m/uL [facility] WBC (Bld) [#/Vol] 10.34 10*3/uL [facility] Basophils (Bld) [#/Vol] 0.04 10*3/uL Normal <0.11 [facility] Comment on above: Order Comment: Speci men Type: BLOOD SPECIMENOrdering Facility: [facility] Address: [address] [place] [address] Performed By: #### 5 7021-8 ####[facility] LABCLIA [id number] [address] STATES [place] [facility] Basophils/100 WBC (Bld) 0.4 % Normal [facility] Comment on above: Order Comment: Speci men Type: BLOOD SPECIMENOrdering Facility: [facility] Address: [address] [place] [address] Performed By: #### 5 7021-8 ####[facility] LABCLIA [id number] [place] [address] [place] Differential cell count method Nom (Bld) Auto Normal [facility] Comment on above: Order Comment: Speci men Type: BLOOD SPECIMENOrdering Facility: [facility] Address: [address] [place] [address] Performed By: #### 5 7021-8 ####[facility] LABCLIA [id number] [place] [address] [place] Eosinophils (Bld) [#/Vol] 0.10 10*3/uL Normal <0.46 [facility] Comment on above: Order Comment: Speci men Type: BLOOD SPECIMENOrdering Facility: [facility] Address: [address] [place] [address] Performed By: #### 5 7021-8 ####[facility] LABCLIA [id number] [place] [address] [place] Eosinophils/100 WBC (Bld) 1.0 % Normal [facility] Comment on above: Order Comment: Speci men Type: BLOOD SPECIMENOrdering Facility: [facility] Address: [address] [place] [address] Performed By: #### 5 7021-8 ####[facility] LABIA [id number] [place] [address] [place] Erythrocyte distribution width (RBC) [Ratio] 13.2 % Normal 11.5-15.0 [facility] Comment on above: Order Comment: Speci men Type: BLOOD SPECIMENOrdering Facility: [facility] Address: [address] [place] [address] Performed By: #### 5 7021-8 ####[facility] LABCLIA [id number] [place] [address] [place] Hematocrit (Bld) [Volume fraction] 42.5 % Normal 36.0-46.0 [facility] Comment on above: Order Comment: Speci men Type: BLOOD SPECIMENOrdering Facility: [facility] Address: [address] [place] [address] Performed By: #### 5 7021-8 ####[facility] LABCLIA [id number] [place] [address] [place] Hemoglobin (Bld) [Mass/Vol] 13.9 g/dL Normal 11.5-15.5 [facility] Comment on above: Order Comment: Speci men Type: BLOOD SPECIMENOrdering Facility: [facility] Address: [address] [place] [address] Performed By: #### 5 7021-8 ####[facility] LABCLIA [id number] [place] [address] [place] Immature granulocytes (Bld) [#/Vol] 0.04 10*3/uL Normal <0.10 [facility] Comment on above: Order Comment: Speci men Type: BLOOD SPECIMENOrdering Facility: [facility] Address: [address] [place] [address] Performed By: #### 5 7021-8 ####[facility] LABCLIA [id number] [place] [address] [place] Immature granulocytes/100 WBC (Bld) 0.4 % Normal [facility] Comment on above: Order Comment: Speci men Type: BLOOD SPECIMENOrdering Facility: [facility] Address: [address] [place] [address] Performed By: #### 5 7021-8 ####[facility] LABIA [id number] [place] [address] [place] Lymphocytes (Bld) [#/Vol] 2.63 10*3/uL Normal 1.00-4.00 [facility] Comment on above: Order Comment: Speci men Type: BLOOD SPECIMENOrdering Facility: [facility] Address: [address] [place] [address] Performed By: #### 5 7021-8 ####[facility] LABIA [id number] [place] [address] [place] Lymphocytes/100 WBC (Bld) 25.4 % Normal [facility] Comment on above: Order Comment: Speci men Type: BLOOD SPECIMENOrdering Facility: [facility] Address: [address] [place] [address] Performed By: #### 5 7021-8 ####[facility] LABIA [id number] [place] [address] [place] MCH (RBC) [Entitic mass] 31.4 pg Normal 26.0-34.0 [facility] Comment on above: Order Comment: Speci men Type: BLOOD SPECIMENOrdering Facility: [facility] Address: [address] [place] [address] Performed By: #### 5 7021-8 ####[facility] LABIA [id number] [place] [address] [place] MCHC (RBC) [Mass/Vol] 32.7 g/dL Normal 30.5-36.0 [facility] Comment on above: Order Comment: Speci men Type: BLOOD SPECIMENOrdering Facility: [facility] Address: [address] [place] [address] Performed By: #### 5 7021-8 ####[facility] LABIA [id number] [place] [id number] [place] MCV (RBC) [Entitic vol] 95.9 fL Normal 80.0-100.0 [facility] Comment on above: Order Comment: Speci men Type: BLOOD SPECIMENOrdering Facility: [facility] Address: [address] [place] [address] Performed By: #### 5 7021-8 ####[facility] LABIA [id number] [place] [address] [place] Monocytes (Bld) [#/Vol] 0.47 10*3/uL Normal <0.87 [facility] Comment on above: Order Comment: Speci men Type: BLOOD SPECIMENOrdering Facility: [facility] Address: [address] [place] [address] Performed By: #### 5 7021-8 ####[facility] LABCLIA [id number] [place] [address] [place] Monocytes/100 WBC (Bld) 4.5 % Normal [facility] Comment on above: Order Comment: Speci men Type: BLOOD SPECIMENOrdering Facility: [facility] Address: [address] [place] [address] Performed By: #### 5 7021-8 ####[facility] LABCLIA [id number] [place] [address] [place] Neutrophils (Bld) [#/Vol] 7.06 10*3/uL Normal 1.45-7.50 [facility] Comment on above: Order Comment: Speci men Type: BLOOD SPECIMENOrdering Facility: [facility] Address: [address] [place] [address] Performed By: #### 5 7021-8 ####[facility] LABCLIA [id number] [place] [address] [place] Neutrophils/100 WBC (Bld) 68.3 % Normal [facility] Comment on above: Order Comment: Speci men Type: BLOOD SPECIMENOrdering Facility: [facility] Address: [address] [place] [address] Performed By: #### 5 7021-8 ####[facility] LABCLIA [id number] [place] [address] [place] Nucleated RBC (Bld) [#/Vol] 10*3/uL Normal <0.01 [facility] Comment on above: Order Comment: Speci men Type: BLOOD SPECIMENOrdering Facility: [facility] Address: [address] [place] [address] Performed By: #### 5 7021-8 ####[facility] LABCLIA [id number] [place] [address] [place] Nucleated RBC/100 WBC (Bld) [Ratio] 0.0 /100 WBC Normal [facility] Comment on above: Order Comment: Speci men Type: BLOOD SPECIMENOrdering Facility: [facility] Address: [address] [place] [address] Performed By: #### 5 7021-8 ####[facility] LABIA [id number] [place] [address] [place] Platelet mean volume (Bld) [Entitic vol] 11.7 fL Normal 9.0-12.7 [facility] Comment on above: Order Comment: Speci men Type: BLOOD SPECIMENOrdering Facility: [facility] Address: [address] [place] [address] Performed By: #### 5 7021-8 ####[facility] LABIA [id number] [place] [address] [place] Platelets (Bld) [#/Vol] 283 10*3/uL Normal 150-400 [facility] Comment on above: Order Comment: Speci men Type: BLOOD SPECIMENOrdering Facility: [facility] Address: [address] [place] [address] Performed By: #### 5 7021-8 ####[facility] LABCLIA [id number] [place] [address] [place] RBC (Bld) [#/Vol] 4.43 10*6/uL Normal 3.90-5.20 [facility] Comment on above: Order Comment: Speci men Type: BLOOD SPECIMENOrdering Facility: [facility] Address: [address] [place] [address] Performed By: #### 5 7021-8 ####[facility] LABCLIA [id number] [place] [address] [place] WBC (Bld) [#/Vol] 10.34 10*3/uL Normal 3.70-11.00 [facility] Comment on above: Order Comment: Speci men Type: BLOOD SPECIMENOrdering Facility: [facility] Address: [address] [place] [address] Performed By: #### 5 7021-8 ####[facility] LABCLIA [id number] [place] [id number] [employer] [place] CNOVon 09-21-2024 CNOV Office Visit (FAMPWS ) TERRY JOE ([id number]) 1960 [facility] Date Time Provider Department 09/21/24 10:40 AM HERRERALOGARCAROLE During your visit today, we recorded the following information about you: Temperature Pulse Respiration Blood pressure 97.7 degrees 86/minute 16/minute 96/66 Weight 64.2 kg PodlogCarole joyce APRN.CNP 09/21/2024 11:42 AM Signed 09/21/2024 Patient presents with: Follow Up: UTI; restarted symptoms x2 days ago with pain and urinary frequency Recording using [employer] software for draft documentation of the visit was discussed with the patient/authorized promotions representative; all questions welcomed and answered. Patient/authorized promotions representative agreed to proceed SUBJECTIVE: This is a 64 year old that is here today for Above Complaints.. Recurrent UTI Symptoms: - Recent UTI treated with Keflex 500 mg BID x5 days; completed full course. - Initial improvement followed by recurrence of symptoms: urinary urgency, frequency, and suprapubic pressure. - Denies current fevers, chills, abdominal pain, back pain, hematuria, or nausea. - Drinking increased amounts of water. - Allergies to penicillin, Macrobid, and sulfa drugs. Dupuytren's Contracture: - Noticed tightening in the left hand, affecting the ring finger. - No pain associated with the contracture. Hip Pain: - History of foot drop since 2007 following surgery. - Recent onset of hip pain x2 months, occurring after walking for approximately 5 minutes. - Associated with leg dragging. - Completed physical therapy post-surgery to regain leg function. Latest Ref Rng 09/21/2024 GLUCOSE UA (POCT) Negative mg/dL Negative BILIRUBIN UA (POCT) Negative Negative KETONE UA (POCT) Negative mg/dL Negative SPECIFIC GRAVITY UA (POCT) 1.005 - 1.030 1.015 HEMOGLOBIN/BLOOD UA (POCT) Negative Moderate ! PH UA (POCT) 4.5 - 8.0 6.0 PROTEIN UA (POCT) Negative mg/dL 100 ! UROBILINOGEN UA (POCT) Normal E.U./dL 0.2 NITRITE UA (POCT) Negative Negative LEUKOCYTES UA (POCT) Negative Moderate ! COLOR UA (POCT) Yellow CLARITY UA (POCT) Cloudy Legend: ! 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 Manuel Central serous chorioretinopathy of right eye [facility] Cervical cancer ([facility]) 2007 CKD (chronic kidney disease) stage 3, GFR 30-59 ml/min ([facility]) Degenerative cervical disc Depression Emphysema (subcutaneous) (surgical) resulting from a procedure Foot drop, right H. 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 atorvastatin (LIPITOR) 40 mg tablet Take 1 tablet by mouth daily at bedtime. For cholesterol. No current facility-administered medications for this visit. Medications and allergies reviewed by this provider. SOCIAL HISTORY Social History Tobacco Use Smoking status: Every Day Current packs/day: 0.50 Average packs/day: 0.5 packs/day for 30.0 years (15.0 ttl pk-yrs) Types: Cigarettes Smokeless tobacco: Never Tobacco comments: failed chantix Vaping Use Vaping status: Never Used Substance Use Topics Alcohol use: No Drug use: No REVIEW OF SYSTEMS All other reviewed and negative other than HPI. OBJECTIVE: BP 96/66 Pulse 86 Temp 36.5 ?C (97.7 ?F) Resp 16 Wt 64.2 kg (141 lb 9.6 oz) SpO2 96% BMI 24.31 kg/m? . Vital signs reviewed by this provider. GENERAL: NAD, alert and oriented. SKIN: Unremarkable, no rash or skin lesions. HEAD: Normocephalic. EYES: conjunctiva clear. EARS: External ears normal, canals clear, TM's normal. NOSE/SINUSES: Nares normal. Septum midline. OROPHARYNX: Lips, mucosa, and tongue normal, good dentition. No oral lesions noted. NECK: Supple, no lymphadenopathy, normal thyroid, no carotid bruits. LUNGS: Clear to auscultation bilaterally, no wheezes/rhonchi/rales. HEART: Regular rate and rhythm, no murmurs. No ectopy. EXTREMITIES: Dupuytren's contracture noted on the left hand affecting the ring finger. No edema. DTaP,Tdap,Td Vaccine(1 - Tdap) Never done Shingrix Vaccine(1 of 2) Never done Mammogram Screening due on 04/23/2020 Colorectal Cancer Screening due on 04/17/2021 Cervical Cancer Screening due on 06/07/2022 Hemoglobin/Hematocrit due on 09/04/2023 Annual PCP Team Chronic Disease Visit due on 11/16/2024 Serum Creatinine due on 03/24/2025 Diabetes Screening due on 03/24/2027 Lipid Screening due on 03/24/2029 RSV Vaccine(1 - 1-dose 75+ series) due on 02/11/2035 Influenza Vac (more content not included)... Normal [facility] Comprehensive metabolic 2000 panelon 09-21-2024 Albumin [Mass/Vol] 4 g/dL 3.9 - 4.9 g/dL [facility] ALP [Catalytic activity/Vol] 114 U/L 34 - 123 U/L [facility] ALT [Catalytic activity/Vol] 23 U/L 7 - 38 U/L [facility] Anion gap [Moles/Vol] 15 mmol/L 8 - 15 mmol/L [facility] AST [Catalytic activity/Vol] 24 U/L 13 - 35 U/L [facility] Bilirubin [Mass/Vol] 0.3 mg/dL 0.2 - 1 .3 mg/dL [facility] Calcium [Mass/Vol] 9.4 mg/dL 8.5 - 10. 2 mg/dL [facility] Chloride [Moles/Vol] 104 mmol/L 98 - 10 7 mmol/L [facility] CO2 [Moles/Vol] 22 mmol/L 22 - 30 mmol/L [facility] Creatinine [Mass/Vol] 1.16 mg/dL High 0.58 - 0.96 mg/dL [facility] GFR/1.73 sq M.predicted among non-blacks MDRD (S/P/Bld) [Vol rate/Area] 53 mL/min/{1.73_m2} Low - PINF [facility] Comment on above: Estimated Glomerular Filtration Rate (eGFR) is calculated using the 2020 CKD-EPI creatinine equation. This equation utilizes serum creatinine, sex, and age as parameters. The creatinine assay has traceable calibration to isotope dilution-mass spectrometry. Refer to KDIGO guidelines for clinical interpretation. In patients with unstable renal function, e.g. those with acute kidney injury, the eGFR may not accurately reflect actual GFR. Glucose [Mass/Vol] 64 mg/dL Low 74 - 99 mg/dL [facility] Comment on above: The [place] Diabete s Association (ADA) provides guidance for cutoff values for fasting glucose and random glucose. The ADA defines fasting as no caloric intake for at least 8 hours. Fasting plasma glucose results between 100 to 125 mg/dL indicate increased risk for diabetes (prediabetes). Fasting plasma glucose results greater than or equal to 126 mg/dL meet the criteria for diagnosis of diabetes. In the absence of unequivocal hyperglycemia, results should be confirmed by repeat testing. In a patient with classic symptoms of hyperglycemia or hyperglycemic crisis, random plasma glucose results greater than or equal to 200 mg/dL meet the criteria for diagnosis of diabetes. Reference: Standards of Medical Care in Diabetes 2016, [place] Diabetes Association. Diabetes Care. 2016.39(Suppl 1). Interpretation and review of laboratory results Abnormal [facility] Potassium [Moles/Vol] 4.2 mmol/L 3.7 - 5.1 mmol/L [facility] Protein [Mass/Vol] 7.2 g/dL 6.3 - 8.0 g/dL [facility] Sodium [Moles/Vol] 141 mmol/L 136 - 144 mmol/L [facility] Urea nitrogen [Mass/Vol] 15 mg/dL 7 - 21 mg/dL [facility] Albumin [Mass/Vol] 4.0 g/dL Normal 3.9-4.9 [facility] Comment on above: Order Comment: Speci men Type: BLOOD SPECIMENOrdering Facility: [facility] Address: [address] [place] [address] Performed By: #### 2 4323-8 ####[facility] LABCLIA [id number] [place] [id number] [place] ALP [Catalytic activity/Vol] 114 U/L Normal 34-123 [facility] Comment on above: Order Comment: Speci men Type: BLOOD SPECIMENOrdering Facility: [facility] Address: [address] [place] [address] Performed By: #### 2 4323-8 ####[facility] LABCLIA [id number] [place] [id number] [place] ALT [Catalytic activity/Vol] 23 U/L Normal 7-38 [facility] Comment on above: Order Comment: Speci men Type: BLOOD SPECIMENOrdering Facility: [facility] Address: [address] [place] [address] Performed By: #### 2 4323-8 ####[facility] LABCLIA [id number] [place] [id number] [place] Anion gap [Moles/Vol] 15 mmol/L Normal 8-15 [facility] Comment on above: Order Comment: Speci men Type: BLOOD SPECIMENOrdering Facility: [facility] Address: [address] [place] [address] Performed By: #### 2 4323-8 ####[facility] LABCLIA [id number] [address] [address] [place] AST [Catalytic activity/Vol] 24 U/L Normal 13-35 [facility] Comment on above: Order Comment: Speci men Type: BLOOD SPECIMENOrdering Facility: [facility] Address: [address] [place], [place] [address] Performed By: #### 2 4323-8 ####[facility] LABCLIA [id number] [address] [address] [place] Bilirubin [Mass/Vol] 0.3 mg/dL Normal 0.2-1.3 [facility] Comment on above: Order Comment: Speci men Type: BLOOD SPECIMENOrdering Facility: [facility] Address: [address] [place], [place] [address] Performed By: #### 2 4323-8 ####[facility] LABCLIA [id number] [place] [address] [place] Calcium [Mass/Vol] 9.4 mg/dL Normal 8.5-10.2 [facility] Comment on above: Order Comment: Speci men Type: BLOOD SPECIMENOrdering Facility: [facility] Address: [address] [place], [place] [address] Performed By: #### 2 4323-8 ####[facility] LABCLIA [id number] [place] [id number] [place] Chloride [Moles/Vol] 104 mmol/L Normal 98-107 [facility] Comment on above: Order Comment: Speci men Type: BLOOD SPECIMENOrdering Facility: [facility] Address: [address] [place], [place] [address] Performed By: #### 2 4323-8 ####[facility] LABCLIA [id number] [place] [id number] [place] CO2 [Moles/Vol] 22 mmol/L Normal 22-30 [facility] Comment on above: Order Comment: Speci men Type: BLOOD SPECIMENOrdering Facility: [facility] Address: [address] [place], [place] [address] Performed By: #### 2 4323-8 ####[facility] LABCLIA [id number] [address] [address] [place] Creatinine [Mass/Vol] 1.16 mg/dL High 0.58-0.96 [facility] Comment on above: Order Comment: Felice savage Type: BLOOD SPECIMENOrdering Facility: [facility] Address: [address] [place] [address] Performed By: #### 2 4323-8 ####[facility] LABIA [id number] [place] [id number] [place] Creatinine and Glomerular filtration rate.predicted panel (S/P/Bld) 53 mL/min/1.73m??? Low >=60 [facility] Comment on above: Order Comment: Felice savage Type: BLOOD SPECIMENOrdering Facility: [facility] Address: [address] [place] [address] Result Comment: Lily mated Glomerular Filtration Rate (eGFR) is calculated using the 2020 CKD-EPI creatinine equation. This equation utilizes serum creatinine, sex, and age as parameters. The creatinine assay has traceable calibration to isotope dilution-mass spectrometry. Refer to KDIGO guidelines for clinical interpretation. In patients with unstable renal function, e.g. those with acute kidney injury, the eGFR may not accurately reflect actual GFR. Performed By: #### 2 4323-8 ####[facility] LABIA [id number] [address] [address] [place] Glucose [Mass/Vol] 64 mg/dL Low 74-99 [facility] Comment on above: Order Comment: Felice savage Type: BLOOD SPECIMENOrdering Facility: [facility] Address: [address] [place] [address] Result Comment: The [place] Diabetes Association (ADA) provides guidance for cutoff values for fasting glucose and random glucose. The ADA defines fasting as no caloric intake for at least 8 hours. Fasting plasma glucose results between 100 to 125 mg/dL indicate increased risk for diabetes (prediabetes). Fasting plasma glucose results greater than or equal to 126 mg/dL meet the criteria for diagnosis of diabetes. In the absence of unequivocal hyperglycemia, results should be confirmed by repeat testing. In a patient with classic symptoms of hyperglycemia or hyperglycemic crisis, random plasma glucose results greater than or equal to 200 mg/dL meet the criteria for diagnosis of diabetes. Reference: Standards of Medical Care in Diabetes 2016, [place] Diabetes Association. Diabetes Care. 2016.39(Suppl 1). Performed By: #### 2 4323-8 ####[facility] LABCLIA [id number] [place] [id number] [place] Potassium [Moles/Vol] 4.2 mmol/L Normal 3.7-5.1 [facility] Comment on above: Order Comment: Speci men Type: BLOOD SPECIMENOrdering Facility: [facility] Address: [address] [place] [address] Performed By: #### 2 4323-8 ####[facility] LABCLIA [id number] [place] [id number] [place] Protein [Mass/Vol] 7.2 g/dL Normal 6.3-8.0 [facility] Comment on above: Order Comment: Speci men Type: BLOOD SPECIMENOrdering Facility: [facility] Address: [address] [place] [address] Performed By: #### 2 4323-8 ####[facility] LABIA [id number] [place] [id number] [place] Sodium [Moles/Vol] 141 mmol/L Normal 136-144 [facility] Comment on above: Order Comment: Speci men Type: BLOOD SPECIMENOrdering Facility: [facility] Address: [address] [place] [address] Performed By: #### 2 4323-8 ####[facility] LABCLIA [id number] [place] [id number] [place] Urea nitrogen [Mass/Vol] 15 mg/dL Normal 7-21 [facility] Comment on above: Order Comment: Speci men Type: BLOOD SPECIMENOrdering Facility: [facility] Address: [address] [place], [place] [address] Performed By: #### 2 4323-8 ####[facility] LABCLIA [id number] RANDALL PEREZ [id number] [place] [address] [place] UA DIP, URINE (POC)on 2024 BILIRUBIN UA (POCT) Negative Negative [facility] CLARITY UA (POCT) Cloudy [facility] COLOR UA (POCT) Yellow [facility] GLUCOSE UA (POCT) Negative Negative mg/dL [facility] Hemoglobin Ql (U) Moderate Abnormal Negative [facility] Interpretation and review of laboratory results Abnormal [facility] KETONE UA (POCT) Negative Negative mg/dL [facility] LEUKOCYTES UA (POCT) Moderate Abnormal Negative [facility] NITRITE UA (POCT) Negative Negative [facility] PH UA (POCT) 6 4.5 - 8.0 [facility] Protein Ql (U) 100 mg/dL Abnormal Negative [facility] SPECIFIC GRAVITY UA (POCT) 1.015 1.005 - 1.030 [facility] UROBILINOGEN UA (POCT) 0.2 Normal E.U./dL [facility] Location:[facility], [address] [place] [address], [place], [place], [id number] [place] [address] POINT OF CARE [facility] Bacteria Ur Culton 5 Bacteria identified Cx Nom (U) ORGANISM ID: 1 >=100,000 CFU/ml Klebsiella variicola ORGANISM ID: 1 (KLEBSIELLA VARIICOLA) --------- ANTIBIOTIC INTERPRETATION CHERYL STATUS REFERENCE RANGE --------- Ampicillin R F Cefazolin S <=4 F Susceptible 0-16 , Intermediate <0 or >16 , Resistant >16 For uncomplicated urinary tract infections, cefazolin results can be used to predict susceptibility or resistance to cephalexin. Ceftriaxone S <=1 F Susceptible <=1 , Intermediate >1 , Resistant >=4 Cefepime S <=1 F Susceptible <=2 , Susceptible-Dose Dependent >2 , Resistant >=16 Ertapenem S <=0.5 F Susceptible <=0.5 , Intermediate >.5 , Resistant >1 Meropenem S <=0.25 F Susceptible <=1 , Intermediate >1 , Resistant >2 Ampicillin/Sulbact S 4 F Susceptible <=8 , Intermediate >8 , Resistant >16 Piperacillin/Tazobac S <=4 F Susceptible <16 , Susceptible-Dose Dependent >=16 , Resistant >=32 Gentamicin S <=1 F Susceptible <=2 , Intermediate >2 , Resistant >=8 Tobramycin S <=1 F Susceptible <4 , Intermediate >=4 , Resistant >=8 Trimeth sulfameth S <=20 F Susceptible <=40 , Resistant >40 Ciprofloxacin S <=0.25 F Susceptible <0.5 , Intermediate >=.5 , Resistant >=1 Nitrofurantoin S 32 F Susceptible <=32 , Intermediate >32 , Resistant >64 Abnormal [facility] Comment on above: Performed By: #### 6 30-4 ####[facility] LABCLIA [id number] [address] STATES OF [facility] CNOVon 09-11-2024 CNOV Office Visit (UCWSTR ) TERRY JOE ([id number]) [address] [facility] Date Time Provider Department 09/11/24 11:15 AM LOKESH PLUMMER [facility] During your visit today, we recorded the following information about you: Temperature Pulse Respiration Blood pressure 99.7 degrees 96/minute 18/minute 122/78 Weight 65.3 kg Lokesh Plummer APRN.TREATMENT TECHNICIAN 09/11/2024 11:33 AM Signed [facility] Subjective Terry Joe is a 64 year old female. Patient presents with: Urinary Frequency: Frequency, burning and fever x 2 days HPI Urinary Tract Infection: - Dysuria and urinary frequency x2 days. - Reports feeling febrile. - History of recurrent UTIs; has a solitary kidney. - Previous treatment with Cipro, which she reports has been effective. Review of Systems Constitutional: (+) fever Genitourinary: (+) dysuria, (+) urinary frequency, (-) flank pain Gastrointestinal: (-) abdominal pain Objective BP 122/78 Pulse 96 Temp 37.6 ?C (99.7 ?F) (Tympanic) Resp 18 Wt 65.3 kg (143 lb 15.4 oz) SpO2 97% BMI 24.71 kg/m? Physical Exam General: No acute distress. CV: Heart sounds normal. Resp: Lung sounds normal. Abd: Abdomen soft, no tenderness. {1. Urinary frequency (R35.0) 2. Acute cystitis without hematuria (N30.00) - Symptoms consistent with urinary tract infection; patient has a history of recurrent UTIs and a solitary kidney. - No severe abdominal pain or CVA tenderness on exam. - Initiated Keflex 500 mg PO BID for 5 days. - Urine sample sent for culture and sensitivity. - Educated patient on potential risks of Ciprofloxacin, including tendon rupture and cardiac issues; reserved for use only if culture indicates resistance to first-line treatment. - Advised to seek immediate medical attention if symptoms worsen or if there is increased pain, given the presence of a solitary kidney. and Recording using [employer] software for draft documentation of the visit was discussed with the patient/authorized promotions representative; all questions welcomed and answered. Patient/authorized promotions representative agreed to proceed MDM Procedures Allergies As of Date: 09/11/2024 Noted Allergy Reaction BACTRIM (SULFAMETHOXAZOLE-TRIMETH*0 10/11/2014 11 - Vomiting MACROBID (NITROFURANTOIN MONOHYD/*12/10/2016 16 - Unknown PENICILLINS 10/11/2014 2 - Rash Date Reviewed: 09/11/2024 Reviewed by: [place], Anju, BOARD MEMBER - Fully Assessed Reason for Visit: Urinary Frequency [1086] Cmt: Frequency, burning and fever x 2 days Primary Visit Diagnosis:Urinary frequency [R35.0] Other Visit Diagnosis:Acute cystitis without hematuria [N30.00] Order(s):UA DIP, URINE (POC) [5722842] Order #: [id number]. #:[id number] -LAB BACTERIAL CULTURE, URINE [SQURCUL] Order #: [id number]. #:[id number] cephALEXin (KEFLEX) 500 mg capsuleTake 1 capsule by mouth two times a day for 5 days.Disp: 10 capsuleRfl: 0 Prescriptions as of 09/11/2024 - cephALEXin (KEFLEX) 500 mg capsule Take 1 capsule by mouth two times a day for 5 days. - atorvastatin (LIPITOR) 40 mg tablet Take 1 tablet by mouth daily at bedtime. For cholesterol. 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 pylori infection [A04.8] 10/09/2017 Hyperlipidemia [E78.5] Central serous chorioretinopathy of right eye [* Stage 3b chronic kidney disease (HCC) [N18.32] 11/14/2023 Prescriptions ordered this encounter Disp Refills Start End CEPHALEXIN 500 MG CAPSULE 10 c* 0 09/11/2024 09/16/2024 Route: PO Sig: Take 1 capsule by mouth two times a day for 5 days. Encounter Status:Closed by LOKESH PLUMMER on 09/11/24 Normal [facility] UA DIP, URINE (POC)on 2024 BILIRUBIN UA (POCT) Negative Negative [facility] CLARITY UA (POCT) Cloudy [facility] [facility] COLOR UA (POCT) Yellow [facility] GLUCOSE UA (POCT) Negative Negative mg/dL [facility] Hemoglobin Ql (U) Moderate Abnormal Negative [facility] Interpretation and review of laboratory results Abnormal [facility] KETONE UA (POCT) Negative Negative mg/dL [facility] LEUKOCYTES UA (POCT) Large Abnormal Negative [facility] NITRITE UA (POCT) Positive Abnormal Negative [facility] PH UA (POCT) 6.5 4.5 - 8.0 [facility] Protein Ql (U) 100 mg/dL Abnormal Negative [facility] SPECIFIC GRAVITY UA (POCT) 1.015 1.005 - 1.030 [facility] UROBILINOGEN UA (POCT) 0.2 Normal E.U./dL [facility] Location:[address], [place], [place], [address] [place] [address] POINT OF CARE [facility] CNCOon 05-20-2024 CNCO Letter Text Normal [facility] Comprehensive metabolic 2000 panelon 03-24-2024 Albumin [Mass/Vol] 3.8 g/dL Low 3.9-4.9 [facility] Comment on above: Order Comment: Speci men Type: BLOOD SPECIMENOrdering Facility: [facility] Address: [address] [place] [address] Performed By: #### 2 4323-8, 66927-9 ####[facility] LABCLIA [id number] [place] [address] [place] ALP [Catalytic activity/Vol] 105 U/L Normal 34-123 [facility] Comment on above: Order Comment: Speci men Type: BLOOD SPECIMENOrdering Facility: [facility] Address: [address] [place] [address] Performed By: #### 2 4323-8, 47490-1 ####[facility] LABCLIA [id number] [place] [address] [place] ALT [Catalytic activity/Vol] 15 U/L Normal 7-38 [facility] Comment on above: Order Comment: Speci men Type: BLOOD SPECIMENOrdering Facility: [facility] Address: [address] [id number] Performed By: #### 2 4323-8, 43462-2 ####[facility] LABCLIA [id number] [place] [id number] [place] Anion gap [Moles/Vol] 12 mmol/L Normal 8-15 [facility] Comment on above: Order Comment: Speci men Type: BLOOD SPECIMENOrdering Facility: [facility] Address: [address] [id number] Performed By: #### 2 4323-8, 72501-6 ####[facility] LABCLIA [id number] [place] [address] [place] AST [Catalytic activity/Vol] 19 U/L Normal 13-35 [facility] Comment on above: Order Comment: Speci men Type: BLOOD SPECIMENOrdering Facility: [facility] Address: [address] [place], [place] [id number] Performed By: #### 2 4323-8, 47626-2 ####[facility] LABCLIA [id number] [place] [address] [place] Bilirubin [Mass/Vol] 0.4 mg/dL Normal 0.2-1.3 [facility] Comment on above: Order Comment: Speci men Type: BLOOD SPECIMENOrdering Facility: [facility] Address: [address] [id number] Performed By: #### 2 4323-8, 24128-7 ####[facility] LABCLIA [id number] [place] [id number] [place] Calcium [Mass/Vol] 9.1 mg/dL Normal 8.5-10.2 [facility] Comment on above: Order Comment: Speci men Type: BLOOD SPECIMENOrdering Facility: [facility] Address: [address] [place] [address] Performed By: #### 2 4323-8, 31090-6 ####[facility] LABCLIA [id number] [place] [address] [place] Chloride [Moles/Vol] 107 mmol/L Normal 98-107 [facility] Comment on above: Order Comment: Speci men Type: BLOOD SPECIMENOrdering Facility: [facility] Address: [address] [place] [address] Performed By: #### 2 4323-8, 31767-3 ####[facility] LABCLIA [id number] [place] [address] [place] CO2 [Moles/Vol] 24 mmol/L Normal 22-30 [facility] Comment on above: Order Comment: Speci men Type: BLOOD SPECIMENOrdering Facility: [facility] Address: [address] [place] [address] Performed By: #### 2 4323-8, 39983-5 ####[facility] LABCLIA [id number] [place] [address] [place] Creatinine [Mass/Vol] 1.18 mg/dL High 0.58-0.96 [facility] Comment on above: Order Comment: Speci men Type: BLOOD SPECIMENOrdering Facility: [facility] Address: [address] [place] [address] Performed By: #### 2 4323-8, 93084-5 ####[facility] LABCLIA [id number] [place] [address] [place] Creatinine and Glomerular filtration rate.predicted panel (S/P/Bld) 52 mL/min/1.73m??? Low >=60 [facility] Comment on above: Order Comment: Speci men Type: BLOOD SPECIMENOrdering Facility: [facility] Address: [address] [place] [address] Result Comment: Lily mated Glomerular Filtration Rate (eGFR) is calculated using the 2020 CKD-EPI creatinine equation. This equation utilizes serum creatinine, sex, and age as parameters. The creatinine assay has traceable calibration to isotope dilution-mass spectrometry. Refer to KDIGO guidelines for clinical interpretation. In patients with unstable renal function, e.g. those with acute kidney injury, the eGFR may not accurately reflect actual GFR. Performed By: #### 2 4323-8, 74192-1 ####[facility] LABCLIA [id number] [place] [address] [place] Glucose [Mass/Vol] 78 mg/dL Normal 74-99 [facility] Comment on above: Order Comment: Felice savage Type: BLOOD SPECIMENOrdering Facility: [facility] Address: [address] [place] [address] Result Comment: The [place] Diabetes Association (ADA) provides guidance for cutoff values for fasting glucose and random glucose. The ADA defines fasting as no caloric intake for at least 8 hours. Fasting plasma glucose results between 100 to 125 mg/dL indicate increased risk for diabetes (prediabetes). Fasting plasma glucose results greater than or equal to 126 mg/dL meet the criteria for diagnosis of diabetes. In the absence of unequivocal hyperglycemia, results should be confirmed by repeat testing. In a patient with classic symptoms of hyperglycemia or hyperglycemic crisis, random plasma glucose results greater than or equal to 200 mg/dL meet the criteria for diagnosis of diabetes. Reference: Standards of Medical Care in Diabetes 2016, [place] Diabetes Association. Diabetes Care. 2016.39(Suppl 1). Performed By: #### 2 4323-8, 73815-9 ####[facility] LABIA [id number] [place] [address] [place] Potassium [Moles/Vol] 3.9 mmol/L Normal 3.7-5.1 [facility] Comment on above: Order Comment: Felice savage Type: BLOOD SPECIMENOrdering Facility: [facility] Address: [address] [place] [address] Performed By: #### 2 4323-8, 33792-6 ####[facility] LABIA [id number] [place] [address] [place] Protein [Mass/Vol] 6.6 g/dL Normal 6.3-8.0 [facility] Comment on above: Order Comment: Speci men Type: BLOOD SPECIMENOrdering Facility: [facility] Address: [address] [place] [address] Performed By: #### 2 4323-8, 34668-1 ####[facility] LABCLIA [id number] [place] [address] [place] Sodium [Moles/Vol] 143 mmol/L Normal 136-144 [facility] Comment on above: Order Comment: Speci men Type: BLOOD SPECIMENOrdering Facility: [facility] Address: [address] [place] [address] Performed By: #### 2 4323-8, 37798-8 ####[facility] LABCLIA [id number] [place] [address] [place] Urea nitrogen [Mass/Vol] 12 mg/dL Normal 7-21 [facility] Comment on above: Order Comment: Speci men Type: BLOOD SPECIMENOrdering Facility: [facility] Address: [address] [place] [address] Performed By: #### 2 4323-8, 10535-4 ####[facility] LABCLIA [id number] [place] [address] [place] Lipid 1996 panelon 4 Cholesterol [Mass/Vol] 125 mg/dL Normal <200 [facility] Comment on above: Order Comment: Speci men Type: BLOOD SPECIMENOrdering Facility: [facility] Address: [address] [place] [address] Result Comment: <200 mg/dL, Desirable 200-239 mg/dL, Borderline high >239 mg/dL, High Performed By: #### 2 4323-8, 19106-8 ####[facility] LABCLIA [id number] [id number] Cholesterol in HDL [Mass/Vol] 35 mg/dL Low >39 [facility] Comment on above: Order Comment: Moisésronaldo savage Type: BLOOD SPECIMENOrdering Facility: [facility] Address: [address] [place] [address] Result Comment: 40-5 9 mg/dL, Acceptable >59 mg/dL, High: Negative risk factor for coronary heart disease <40 mg/dL, Low: Positive risk factor for coronary heart disease Performed By: #### 2 4323-8, 65749-8 ####[facility] LABCLIA [id number] [address] Cholesterol in LDL [Mass/Vol] 67 mg/dL Normal <100 [facility] Comment on above: Order Comment: Felice janette Type: BLOOD SPECIMENOrdering Facility: [facility] Address: [address] [place] [address] Result Comment: <100 mg/dL, Optimal 100-129 mg/dL, Near optimal/above optimal 130-159 mg/dL, Borderline high 160-189 mg/dL, High >189 mg/dL, Very high Secondary prevention optimal LDL Cholesterol levels are recommended to be < 70 mg/dL Performed By: #### 2 4323-8, 14468-5 ####[facility] LABCLIA [id number] [address] Cholesterol in LDL/Cholesterol in HDL [Mass ratio] 1.91 {ratio} Normal <2.54 [facility] Comment on above: Order Comment: Felice savage Type: BLOOD SPECIMENOrdering Facility: [facility] Address: [address] [place] [address] Result Comment: Refe rence: 1. National Cholesterol Education Program ATP III Guideline At-A-Glance Quick Desk Reference: National Heart, Lung, and Blood [place]. National Institutes of Health. 2001: NIH Publication No. 01-3305. 2. An International Atherosclerosis Society position paper: global recommendations for the management of dyslipidemia: executive summary, Atherosclerosis. 2014: 232(2):410-413. Performed By: #### 2 4323-8, ####[facility] LABCLIA [id number] [address] [address] [place] Cholesterol in VLDL [Mass/Vol] 23 mg/dL Normal <30 [facility] Comment on above: Order Comment: Speci men Type: BLOOD SPECIMENOrdering Facility: [facility] Address: [address] [place] [address] Performed By: #### 2 4323-8, ####[facility] LABCLIA [id number] [place] [id number] [place] Cholesterol non HDL [Mass/Vol] 90 mg/dL Normal <130 [facility] Comment on above: Order Comment: Speci men Type: BLOOD SPECIMENOrdering Facility: [facility] Address: [address] [place] [address] Result Comment: <130 mg/dL, Optimal 130-159 mg/dL, Near optimal/above optimal 160-189 mg/dL, Borderline high 190-219 mg/dL, High >219 mg/dL, Very high Secondary prevention optimal non HDL Cholesterol levels are recommended to be <100 mg/dL Performed By: #### 2 4323-8, ####[facility] LABCLIA [id number] [place] [address] [place] Cholesterol.total/Cho lesterol in HDL [Mass ratio] 3.57 {ratio} Normal <5.10 [facility] Comment on above: Order Comment: Speci men Type: BLOOD SPECIMENOrdering Facility: [facility] Address: [address] [id number] Performed By: #### 2 4323-8, ####[facility] LABCLIA [id number] [place] [address] [place] FASTING TIME 12 hrs Normal [facility] Comment on above: Order Comment: Speci men Type: BLOOD SPECIMENOrdering Facility: [facility] Address: [address] [place] [address] Performed By: #### 2 4323-8, 20773-6 ####[facility] LABCLIA [id number] [place] [address] [place] Triglyceride [Mass/Vol] 115 mg/dL Normal <150 [facility] Comment on above: Order Comment: Speci men Type: BLOOD SPECIMENOrdering Facility: [facility] Address: [address] [place] [address] Result Comment: <150 mg/dL, Normal 150-199 mg/dL, Borderline high 200-499 mg/dL, High >499 mg/dL, Very high Performed By: #### 2 4323-8, 16432-3 ####[facility] LABCLIA [id number] [place] [address] [place] UA DIP, URINE (POC)on 2022 BILIRUBIN UA (POCT) Negative Negative [facility] CLARITY UA (POCT) Slightly Cloudy [facility] COLOR UA (POCT) Yellow [facility] GLUCOSE UA (POCT) Negative Negative mg/dL [facility] Hemoglobin Ql (U) Trace-lysed Abnormal Negative [facility] KETONE UA (POCT) Negative Negative mg/dL [facility] LEUKOCYTES UA (POCT) Moderate Abnormal Negative [facility] NITRITE UA (POCT) Positive Abnormal Negative [facility] PH UA (POCT) 6.5 4.5 - 8.0 [facility] Protein Ql (U) Trace Abnormal Negative mg/dL [facility] SPECIFIC GRAVITY UA (POCT) 1.020 1.005 - 1.030 [facility] UROBILINOGEN UA (POCT) 0.2 E.U./dL Normal E.U./dL [facility] No Panel Informationon 08-30 IMPRESSION: No acute bony abnormality. Capacitor Assembler: PSCB Transcribe Date/Time: Aug 30 2022 2:18A Dictated by : PAOLA PERALTA MD This examination was interpreted and the report reviewed and electronically signed by: PAOLA PERALTA MD on Aug 30 2022 2:19AM [facility] DIVISION OF RADIOLOGY No Panel InformationOrdered By: Ccf Provider on 08-30-2022 [facility] XR Radius and Ulna - left AP and Lateralon 08-30-2022 * * *Final Report* * * DATE OF EXAM: Aug 27 2022 12:52PM WOX 5341 - XR FOREARM 2V AP/LAT LT / PROCEDURE REASON: Left forearm pain * * * * Physician Interpretation * * * * EXAMINATION / TECHNIQUE: XR WRIST 3V PA/LAT/OBL LT, XR FOREARM 2V AP/LAT LT HISTORY: fell down this am pain radial side of wrist and distal forearm Left wrist pain COMPARISON: None RESULT: No acute fracture or malalignment in the forearm or wrist. Joint spaces of the elbow and wrist are preserved. No osseous erosion. COMBINED DIVISION OF RADIOLOGY Provider, [facility] - 08/30/2022 * * *Final Report* * * DATE OF EXAM: Aug 27 2022 12:52PM WOX 5341 - XR FOREARM 2V AP/LAT LT / PROCEDURE REASON: Left forearm pain * * * * Physician Interpretation * * * * EXAMINATION / TECHNIQUE: XR WRIST 3V PA/LAT/OBL LT, XR FOREARM 2V AP/LAT LT HISTORY: fell down this am pain radial side of wrist and distal forearm Left wrist pain COMPARISON: None RESULT: No acute fracture or malalignment in the forearm or wrist. Joint spaces of the elbow and wrist are preserved. No osseous erosion. COMBINED IMPRESSION IMPRESSION: No acute bony abnormality. Capacitor Assembler: ALAN Transcribe Date/Time: Aug 30 2022 2:18A Dictated by : PAOLA PERALTA MD This examination was interpreted and the report reviewed and electronically signed by: PAOLA PERALTA MD on Aug 30 2022 2:19AM EST [facility] XR Wrist - left PA and Later al and Obliqueon 08-30-2022 * * *Final Report* * * DATE OF EXAM: Aug 27 2022 12:52PM WOX 5270 - XR WRIST 3V PA/LAT/OBL LT / PROCEDURE REASON: Left wrist pain * * * * Physician Interpretation * * * * EXAMINATION / TECHNIQUE: XR WRIST 3V PA/LAT/OBL LT, XR FOREARM 2V AP/LAT LT HISTORY: fell down this am pain radial side of wrist and distal forearm Left wrist pain COMPARISON: None RESULT: No acute fracture or malalignment in the forearm or wrist. Joint spaces of the elbow and wrist are preserved. No osseous erosion. COMBINED DIVISION OF RADIOLOGY Provider, [facility] Ramakrishna [facility] - 08/30/2022 * * *Final Report* * * DATE OF EXAM: Aug 27 2022 12:52PM WOX 5270 - XR WRIST 3V PA/LAT/OBL LT / PROCEDURE REASON: Left wrist pain * * * * Physician Interpretation * * * * EXAMINATION / TECHNIQUE: XR WRIST 3V PA/LAT/OBL LT, XR FOREARM 2V AP/LAT LT HISTORY: fell down this am pain radial side of wrist and distal forearm Left wrist pain COMPARISON: None RESULT: No acute fracture or malalignment in the forearm or wrist. Joint spaces of the elbow and wrist are preserved. No osseous erosion. COMBINED IMPRESSION IMPRESSION: No acute bony abnormality. Capacitor Assembler: ALAN Transcribe Date/Time: Aug 30 2022 2:18A Dictated by : PAOLA PERALTA MD This examination was interpreted and the report reviewed and electronically signed by: PAOLA PERALTA MD on Aug 30 2022 2:19AM EST [facility] No Panel Informationon 08-27 Radiology Study observation (narrative) [facility] No Panel Informationon 11-22 IMPRESSION: No acute fracture. Degenerative disease of the lumbar spine. Capacitor Assembler: ALAN Transcribe Date/Time: Nov 22 2021 10:30A Dictated by : CRESENCIO LAW MD This examination was interpreted and the report reviewed and electronically signed by: CRESENCIO LAW MD on Nov 22 2021 10:33AM EST ZZZ_DO_NOT_ USE_DIVISIO N OF RADIOLOGY [facility] Radiology Study observation (narrative) [facility] UA DIP, URINE (POC)on 2021 BILIRUBIN UA (POCT) Negative Negative [facility] CLARITY UA (POCT) Slightly Cloudy [facility] COLOR UA (POCT) Other [facility] GLUCOSE UA (POCT) Negative Negative mg/dL [facility] HEMOGLOBIN/BLOOD UA (POCT) Negative Negative [facility] KETONE UA (POCT) Negative Negative mg/dL [facility] LEUKOCYTES UA (POCT) Small Abnormal Negative [facility] NITRITE UA (POCT) Negative Negative [facility] PH UA (POCT) 5.5 4.5 - 8.0 [facility] Protein Ql (U) Negative Negative mg/dL [facility] SPECIFIC GRAVITY UA (POCT) 1.020 1.005 - 1.030 [facility] UROBILINOGEN UA (POCT) 0.2 E.U./dL Normal E.U./dL [facility] XR Lumbar spine 3 Viewson * * *Final Report* * * DATE OF EXAM: Nov 22 2021 10:29AM WOX 5228 - XR LUMBAR 3V AP/LAT/L5-S1 / PROCEDURE REASON: Acute right-sided back pain, unspecified back location * * * * Physician Interpretation * * * * X-ray lumbosacral spine, AP, lateral and L5-S1 views X-ray sacrum and coccyx, AP and lateral views Indication: Low back pain Comparison: None Counting reference: Lumbosacral junction. For the purposes of this report, L5S1 is considered the last lumbar type disc space and L4-5 is considered the level of the iliac crest. No acute fracture or destructive osseous lesion. Grade 1 retrolisthesis of L2 on L3. No facet subluxation. Intervertebral disc space narrowing at L2-3 and L3-4 with endplate sclerosis and vertebral body osteophytes. Sacroiliac joints appear normal. VíctorZZ_DO_NOT_ USE_DIVISIO N OF RADIOLOGY Provider, [facility] - 11/22/2021 * * *Final Report* * * DATE OF EXAM: Nov 22 2021 10:29AM WOX 5228 - XR LUMBAR 3V AP/LAT/L5-S1 / PROCEDURE REASON: Acute right-sided back pain, unspecified back location * * * * Physician Interpretation * * * * X-ray lumbosacral spine, AP, lateral and L5-S1 views X-ray sacrum and coccyx, AP and lateral views Indication: Low back pain Comparison: None Counting reference: Lumbosacral junction. For the purposes of this report, L5S1 is considered the last lumbar type disc space and L4-5 is considered the level of the iliac crest. No acute fracture or destructive osseous lesion. Grade 1 retrolisthesis of L2 on L3. No facet subluxation. Intervertebral disc space narrowing at L2-3 and L3-4 with endplate sclerosis and vertebral body osteophytes. Sacroiliac joints appear normal. IMPRESSION IMPRESSION: No acute fracture. Degenerative disease of the lumbar spine. Capacitor Assembler: PSCB Transcribe Date/Time: Nov 22 2021 10:30A Dictated by : CRESENCIO LAW MD This examination was interpreted and the report reviewed and electronically signed by: CRESENCIO LAW MD on Nov 22 2021 10:33AM EST [facility] XR Pelvis and Hip - right AP and Lateral frogon 11-22-2021 IMPRESSION: No acute fracture or dislocation of the right hip Capacitor Assembler: [facility] Transcribe Date/Time: Nov 22 2021 10:33A Dictated by : CRESENCIO LAW MD This examination was interpreted and the report reviewed and electronically signed by: CRESENCIO LAW MD on Nov 22 2021 10:35AM EST ZZZ_DO_NOT_ USE_DIVISIO N OF RADIOLOGY * * *Final Report* * * DATE OF EXAM: Nov 22 2021 10:29AM WOX 5352 - XR HIP 3V PELV+ AP/LAT RT / PROCEDURE REASON: Acute right-sided back pain, unspecified back location * * * * Physician Interpretation * * * * EXAMINATION: XR HIP 3V PELV+ AP/LAT RT CLINICAL HISTORY: Right hip pain Technique: XR HIP 3V PELV+ AP/LAT RT -- RIGHT with 3 views on 3 images Comparison: None RESULT: No acute fracture or hip dislocation. Joint spaces are maintained. ZZZ_DO_NOT_ USE_DIVISIO N OF RADIOLOGY Provider, [facility] - 11/22/2021 * * *Final Report* * * DATE OF EXAM: Nov 22 2021 10:29AM WOX 5352 - XR HIP 3V PELV+ AP/LAT RT / PROCEDURE REASON: Acute right-sided back pain, unspecified back location * * * * Physician Interpretation * * * * EXAMINATION: XR HIP 3V PELV+ AP/LAT RT CLINICAL HISTORY: Right hip pain Technique: XR HIP 3V PELV+ AP/LAT RT -- RIGHT with 3 views on 3 images Comparison: None RESULT: No acute fracture or hip dislocation. Joint spaces are maintained. IMPRESSION IMPRESSION: No acute fracture or dislocation of the right hip Capacitor Assembler: ALAN Transcribe Date/Time: Nov 22 2021 10:33A Dictated by : CRESENCIO LAW MD This examination was interpreted and the report reviewed and electronically signed by: CRESENCIO LAW MD on Nov 22 2021 10:35AM EST [facility] XR Pelvis and Hip - right AP and Lateral frogOrdered By: Ccf Provider on 11-22-2021 [facility] XR Sacrum and Coccyx 3 Views on 11-22-2021 * * *Final Report* * * DATE OF EXAM: Nov 22 2021 10:29AM WOX 5246 - XR SACRUM/COCCYX 3V AP/LAT / PROCEDURE REASON: Acute right-sided back pain, unspecified back location * * * * Physician Interpretation * * * * X-ray lumbosacral spine, AP, lateral and L5-S1 views X-ray sacrum and coccyx, AP and lateral views Indication: Low back pain Comparison: None Counting reference: Lumbosacral junction. For the purposes of this report, L5S1 is considered the last lumbar type disc space and L4-5 is considered the level of the iliac crest. No acute fracture or destructive osseous lesion. Grade 1 retrolisthesis of L2 on L3. No facet subluxation. Intervertebral disc space narrowing at L2-3 and L3-4 with endplate sclerosis and vertebral body osteophytes. Sacroiliac joints appear normal. ZZZ_DO_NOT_ USE_DIVISIO N OF RADIOLOGY Provider, [facility] - 11/22/2021 * * *Final Report* * * DATE OF EXAM: Nov 22 2021 10:29AM WOX 5246 - XR SACRUM/COCCYX 3V AP/LAT / PROCEDURE REASON: Acute right-sided back pain, unspecified back location * * * * Physician Interpretation * * * * X-ray lumbosacral spine, AP, lateral and L5-S1 views X-ray sacrum and coccyx, AP and lateral views Indication: Low back pain Comparison: None Counting reference: Lumbosacral junction. For the purposes of this report, L5S1 is considered the last lumbar type disc space and L4-5 is considered the level of the iliac crest. No acute fracture or destructive osseous lesion. Grade 1 retrolisthesis of L2 on L3. No facet subluxation. Intervertebral disc space narrowing at L2-3 and L3-4 with endplate sclerosis and vertebral body osteophytes. Sacroiliac joints appear normal. IMPRESSION IMPRESSION: No acute fracture. Degenerative disease of the lumbar spine. Capacitor Assembler: [facility] Transcribe Date/Time: Nov 22 2021 10:30A Dictated by : CRESENCIO LAW MD This examination was interpreted and the report reviewed and electronically signed by: CRESENCIO LAW MD on Nov 22 2021 10:33AM EST [facility] XR Knee - left 4 Viewson IMPRESSION: No acute process is seen. Capacitor Assembler: [facility] Transcribe Date/Time: Jan 17 2021 12:06P Dictated by : NENITA VENTURA MD This examination was interpreted and the report reviewed and electronically signed by: NENITA VENTURA MD on Jan 17 2021 12:07PM [facility] DIVISION OF RADIOLOGY * * *Final Report* * * DATE OF EXAM: Jan 17 2021 11:48AM WOX 5202 - XR KNEE 4V AP/PA BOTH+LAT/CHELSEA LT / PROCEDURE REASON: Acute pain of left knee * * * * Physician Interpretation * * * * Acute left knee pain FINDINGS: AP, PA, merchant views of both knees, and a lateral view of the left knee, have been obtained. There is no acute fracture or dislocation. There is minimal narrowing of the femoral-tibial joint spaces bilaterally without associated findings. Femoral patellar joint spaces are maintained. No joint effusion is seen. DIVISION OF RADIOLOGY Provider, [facility] - 01/17/2021 * * *Final Report* * * DATE OF EXAM: Jan 17 2021 11:48AM WOX 5202 - XR KNEE 4V AP/PA BOTH+LAT/CHELSEA LT / PROCEDURE REASON: Acute pain of left knee * * * * Physician Interpretation * * * * Acute left knee pain FINDINGS: AP, PA, merchant views of both knees, and a lateral view of the left knee, have been obtained. There is no acute fracture or dislocation. There is minimal narrowing of the femoral-tibial joint spaces bilaterally without associated findings. Femoral patellar joint spaces are maintained. No joint effusion is seen. IMPRESSION IMPRESSION: No acute process is seen. Capacitor Assembler: [facility] Transcribe Date/Time: Jan 17 2021 12:06P Dictated by : NENITA VENTURA MD This examination was interpreted and the report reviewed and electronically signed by: NENITA VENTURA MD on Jan 17 2021 12:07PM EST [facility] Radiology Study observation (narrative) [facility] XR Knee - left 4 ViewsOrdere d By: Ccf Provider on 01-17-2021 [facility] CNPNon 11-05-2020 CNPN Telephone (AKURFL) TERRY JOE ([id number]) [address] [facility] Date Time Provider Department 11/05/20 YVETTE HOLGUIN During your visit today, we recorded the following information about you: Yvette Holguin PA-C 11/05/2020 2:13 PM Signed Please call pt, cipro may not treat uti, doxycycline sent to pharmacy. Make sure she takes it with food. MURALI Middleton [facility] 11/06/2020 8:56 AM Signed Lm to return our call to to inform me of the message below Pilar Candelaria LPN 11/06/2020 3:04 PM Signed I called and left a 2nd message to call the office Pilar Perez PSS 11/06/2020 3:12 PM Signed Patient has been informed and understands. Mikaela Perez PSS Allergies As of Date: 11/05/2020 Noted Allergy Reaction BACTRIM (SULFAMETHOXAZOLE-TRIMETH*0 10/11/2014 11 - Vomiting MACROBID (NITROFURANTOIN MONOHYD/*12/10/2016 16 - Unknown PENICILLINS 10/11/2014 2 - Rash Date Reviewed: 10/31/2020 Reviewed by: Yvette Holguin PA-C - Fully Assessed Reason for Visit: Medication Problem [65] Order(s):doxycycline hyclate (VIBRAMYCIN) 100 mg capsuleTake 1 capsule by mouth twice daily for 7 days.Disp: 14 capsuleRfl: 0 Prescriptions as of 11/06/2020 - doxycycline hyclate (VIBRAMYCIN) 100 mg capsule Take 1 capsule by mouth twice daily for 7 days. - ciprofloxacin HCl (CIPRO) 500 mg tablet Take 1 tablet by mouth twice daily for 7 days. - escitalopram oxalate (LEXAPRO) 20 mg tablet Take 1 tablet by mouth once daily. - atorvastatin (LIPITOR) 40 mg tablet Take 1 tablet by mouth daily at bedtime. For cholesterol. - albuterol HFA (VENTOLIN HFA) 90 mcg/actuation inhaler Inhale 2 Puffs as instructed every 4 hours as needed. 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 pylori infection [A04.8] 10/09/2017 Hyperlipidemia [E78.5] Central serous chorioretinopathy of right eye [* Prescriptions ordered this encounter Disp Refills Start End DOXYCYCLINE HYCLATE 100 MG CAPSULE 14 c* 0 11/05/2020 11/12/2020 Route: ORAL Sig: Take 1 capsule by mouth twice daily for 7 days. Encounter Status:Closed by YVETTE HOLGUIN on 11/05/20 [facility] Kirsten 11-03-2020 NAUN Telephone (LYLA) TERRY JOE ([id number]) 1960 F [facility] Date Time Provider Department 11/03/20 YVETTE HOLGUIN During your visit today, we recorded the following information about you: hCip Morgan Ma 11/03/2020 12:06 PM Signed ----- Message from Yvette Holguin PA-C sent at 11/03/2020 12:00 PM EDT ----- Please call pt, small cyst in right kidney, no swelling in kidney, no cause of pain found on this study. MURALI Middleton Ma 11/03/2020 12:06 PM Signed Patient informed. Chip Morgan Ma Allergies As of Date: 11/03/2020 Noted Allergy Reaction BACTRIM (SULFAMETHOXAZOLE-TRIMETH*0 10/11/2014 11 - Vomiting MACROBID (NITROFURANTOIN MONOHYD/*12/10/2016 16 - Unknown PENICILLINS 10/11/2014 2 - Rash Date Reviewed: 10/31/2020 Reviewed by: Yvette Holguin PA-C - Fully Assessed Reason for Visit: Results [95] Prescriptions as of 11/03/2020 - ciprofloxacin HCl (CIPRO) 500 mg tablet Take 1 tablet by mouth twice daily for 7 days. - escitalopram oxalate (LEXAPRO) 20 mg tablet Take 1 tablet by mouth once daily. - atorvastatin (LIPITOR) 40 mg tablet Take 1 tablet by mouth daily at bedtime. For cholesterol. - albuterol HFA (VENTOLIN HFA) 90 mcg/actuation inhaler Inhale 2 Puffs as instructed every 4 hours as needed. 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 pylori infection [A04.8] 10/09/2017 Hyperlipidemia [E78.5] Central serous chorioretinopathy of right eye [* Encounter Status:Closed by CHIP MORGAN MA on 11/03/20 [facility] ALLIED HEALTHon 11-01-2020 ALL[facility] HEALTH HNO ID: [id number] Author: RT Jerardo(R) Service: Radiology Author Type: Weapons System Instrument Mechanic Type: [facility] Filed: 11/01/2020 12:17 PM Note Text: Radiology Service Progress Note PATIENT NAME: Terry Joe DATE OF SERVICE: November 01, 2020 TIME: 12:17 PM PATIENT IDENTITY VERIFICATION COMPLETED USING TWO (2) IDENTIFIERS: Name and Date of confirmed by patient verbally. FALL SCREENING: Has the patient had 2 falls in the last year or 1 fall with injury or currently using an Ambulatory Assistive Device (Walker, Cane, Wheelchair, Crutches, etc.)? No PATIENT GENDER DATA: Female. status: : No status: N/A PATIENT RELEVANT IMPLANT DATA REVIEWED: Not Applicable RADIOLOGY DEPARTMENT: Ultrasound PERIPHERAL IV DATA: Not applicable SIGNED BY: RT Jerardo(R) November 01, 2020 12:17 PM Normal [facility] US KIDNEY/BLADDERon 11-02-19 US KIDNEY/BLADDER * * *Final Report* * * DATE OF EXAM: Nov 01 2020 11:24AM AWU 1055 - US KIDNEY/BLADDER / PROCEDURE REASON: Acute right flank pain * * * * Physician Interpretation * * * * EXAMINATION: RENAL ULTRASOUND CLINICAL HISTORY: Right flank pain, previous left nephrectomy TECHNIQUE: Sonography of the kidneys and urinary bladder was performed. Images were obtained and stored in a permanent archive. MQ: UR_1 COMPARISON: 03/17/2017 RESULT: Right Kidney: -Renal length: 11.1 cm -Parenchyma: Normal parenchymal echogenicity. Normal parenchymal thickness. -Collecting system: No hydronephrosis. -Calculus: No echogenic, shadowing calculus. -Lesion: Lower pole cyst measuring 0.9 cm Left Kidney: -Prior nephrectomy -No sonographic abnormality identified within the left renal fossa Bladder: Normal sonographic appearance. IMPRESSION: Lower pole right-sided renal cyst. Previous left nephrectomy. Unremarkable appearance of the urinary bladder. Capacitor Assembler: [facility] Transcribe Date/Time: Nov 03 2020 11:37A Dictated by : BRINA WATKINS MD This examination was interpreted and the report reviewed and electronically signed by: BRINA WATKINS MD on Nov 03 2020 11:40AM EST [id number] Normal [facility] Bacteria Ur Culton 1 Bacteria identified Cx Nom (U) ORGANISM ID: 1 >=100,000 CFU/ml Staphylococcus haemolyticus ORGANISM ID: 1 (STAPHYLOCOCCUS HAEMOLYTICUS) --------- ANTIBIOTIC INTERPRETATION CHERYL STATUS REFERENCE RANGE --------- Nitrofurantoin S <=16 F Susceptible <=32 , Intermediate >32 , Resistant >64 Gentamicin S <=2 F Susceptible <=4 , Intermediate >4 , Resistant >8 Oxacillin S <=0.25 F Susceptible <=0.25 , Intermediate >.25 , Resistant >=.5 Rifampin S <=0.5 F Susceptible <=1 , Intermediate >1 , Resistant >2 Rifampin should not be used alone for antimicrobial therapy. Tetracycline S <=0.5 F Susceptible <=4 , Intermediate >4 , Resistant >8 Vancomycin S <=0.5 F Susceptible <=4 , Intermediate >4 , Resistant >16 Trimeth sulfameth S F Abnormal [facility] Comment on above: Performed By: #### 6 30-4 #### [facility] CLIA [id number] [address] [place] [id number] CNOVon 10-31-2020 CNOV Office Visit (UROLAG ) TERRY JOE ([id number]) [address] [facility] Date Time Provider Department 10/31/20 10:45 AM YVETTE HOLUGIN URORAUL During your visit today, we recorded the following information about you: Blood pressure Weight Height 102/80 70.3 kg 1.626 m Yvette Holguin PA-C 10/31/2020 3:19 PM Signed ESTABLISHED PATIENT OFFICE VISIT HISTORY OF PRESENT ILLNESS: Terry Joe is a 60 year old female, Ht 162.6 cm (5' 4) BMI 26.61 kg/m2 with a PMH significant for right flank pain. Pt is s/p left nephrectomy years ago, has had right flank pain for several days. Pt denies dysuria, hematuria, fever or chills. LAB: Creatinine Date Value Ref Range Status 06/16/2020 1.22 (H) 0.58 - 0.96 mg/dL Final No results found for: PSA Glucose, Urine (mg/dL) Date Value 07/23/2017 neg Bilirubin, Urine (no units) Date Value 07/23/2017 neg Ketones, Urine (no units) Date Value 07/23/2017 neg Specific [place], Ur (no units) Date Value 07/23/2017 1.015 Hemoglobin/Blood,Ur (no units) Date Value 07/23/2017 neg pH, Urine (no units) Date Value 07/23/2017 6.5 Protein, Urine (mg/dL) Date Value 07/23/2017 neg Urobilinogen, Urine (EU) Date Value 07/23/2017 0.2 Nitrites (no units) Date Value 07/23/2017 neg Leukocytes (no units) Date Value 07/23/2017 small Color/Appearance (comment:) Date Value 07/23/2017 y/c MEDICATIONS: ciprofloxacin HCl (CIPRO) 500 mg tablet Take 1 tablet by mouth twice daily for 7 days. escitalopram oxalate (LEXAPRO) 20 mg tablet Take 1 tablet by mouth once daily. atorvastatin (LIPITOR) 40 mg tablet Take 1 tablet by mouth daily at bedtime. For cholesterol. albuterol HFA (VENTOLIN HFA) 90 mcg/actuation inhaler Inhale 2 Puffs as instructed every 4 hours as needed. Review of Systems All other systems reviewed and are negative. 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 Manuel - Central serous chorioretinopathy of right eye [facility]reo-retinal consultants - Cervical cancer ([facility]) 2007 - CKD (chronic kidney disease) stage 3, GFR 30-59 ml/min ([facility]) - Degenerative cervical disc - Depression - Emphysema (subcutaneous) (surgical) resulting from a procedure - Foot drop, right - H. pylori infection 04/2016-treated - Hyperlipidemia - Malignant neoplasm of left ureter ([facility]) - Single kidney - Stricture of ureter - Tobacco use FAMILY HISTORY Problem Relation Age of Onset - Heart Mother young age - Emphysema Mother - Heart Father - Colon Cancer Father age of 81 - Hypertension Brother - Heart Brother pacemaker - Aneurysm Brother brain - Hypertension Sister - Heart Sister a fib - Hyperlipidemia Sister Social History Tobacco Use - Smoking status: Current Every Day Smoker Packs/day: 0.50 Years: 30.00 Pack years: 15.00 - Smokeless tobacco: Never Used - Tobacco comment: failed chantix Vaping Use - Vaping Use: Never used Substance Use Topics - Alcohol use: No - Drug use: No PHYSICAL EXAMINATION GENERAL APPEARANCE: Well appearing, alert, in no acute distress, well-hydrated, well nourished. ASSESSMENT/PLAN: 1. Acute right flank pain - ICD9: 789.09, 338.19, ICD10: R10.9 - US KIDNEY/BLADDER - URINALYSIS, WITH MICROSCOPIC - URINE CULTURE cipro Follow up pending results Yvette Holguin PA-C Referring Provider: TARAH ROOT [[id number]] Allergies As of Date: 10/31/2020 Noted Allergy Reaction BACTRIM (SULFAMETHOXAZOLE-TRIMETH*0 10/11/2014 11 - Vomiting MACROBID (NITROFURANTOIN MONOHYD/*12/10/2016 16 - Unknown PENICILLINS 10/11/2014 2 - Rash Date Reviewed: 10/31/2020 Reviewed by: Yvette Holguin PA-C - Fully Assessed Reason for Visit: Flank Pain [356] Primary Visit Diagnosis:Acute right flank pain [R10.9] Order(s):UA DIP, URINE (POC) [[id number]] Order #: [id number]. #:[id number] US KIDNEY/BLADDER [1570169] Order #: [id number] FUTURE URINALYSIS, WITH MICROSCOPIC [SQUAWMIC] Order #: [id number]. #:[id number] URINE CULTURE [SQURCUL] Order #: [id number]. #:[id number] ciprofloxacin HCl (CIPRO) 500 mg tabletTake 1 tablet by mouth twice daily for 7 days.Disp: 14 tabletRfl: 0 Prescriptions as of 10/31/2020 - ciprofloxacin HCl (CIPRO) 500 mg tablet Take 1 tablet by mouth twice daily for 7 days. - escitalopram oxalate (LEXAPRO) 20 mg tablet Take 1 tablet by mouth once daily. - atorvastatin (LIPITOR) 40 mg tablet Take 1 tablet by mouth daily at bedtime. For cholesterol. - albuterol HFA (VENTOLIN HFA) 90 mcg/actuation inhaler Inhale 2 Puffs as instructed every 4 hours as needed. Problem List As Of Date 10/31/2020 Noted Resolved Cancer of left ureter (HCC) [C66.2] 10/11/2014 Cervical cancer (HCC) [C53.9] 10/11/2014 Foot drop, right [M21.371] 10/11/ (more content not included)... Normal [facility] Urinalysis complete panel (U )on 10-31-2020 Bacteria LM.HPF (Urine sed) [#/Area] None Seen Normal None Seen [facility] Comment on above: Order Comment: Speci men Type: URINE SPECIMEN Performed By: #### 2 4356-8 #### [facility] CLIA [id number] [address] [place] [address] Bilirubin Ql (U) Negative Normal Negative [facility] Comment on above: Order Comment: Speci men Type: URINE SPECIMEN Performed By: #### 2 4356-8 #### [facility] CLIA [id number] [address] [place] [address] Clarity (Unsp spec) Cloudy Abnormal Clear [facility] Comment on above: Order Comment: Speci men Type: URINE SPECIMEN Performed By: #### 2 4356-8 #### [facility] CLIA [id number] [address] [place] [address] Color (U) Yellow Normal Yellow [facility] Comment on above: Order Comment: Speci men Type: URINE SPECIMEN Performed By: #### 2 4356-8 #### [facility] CLIA [id number] [address] [place] [address] Epithelial cells LM.HPF (Urine sed) [#/Area] 6.2 /[HPF] Normal [facility] Comment on above: Order Comment: Speci men Type: URINE SPECIMEN Performed By: #### 2 4356-8 #### [facility] CLIA [id number] [address] [place] [address] Glucose Test strip (U) [Mass/Vol] Negative Normal Negative [facility] Comment on above: Order Comment: Speci men Type: URINE SPECIMEN Performed By: #### 2 4356-8 #### [facility] CLIA [id number] [address] [place] [address] Hemoglobin Ql (U) Trace Abnormal Negative [facility] Comment on above: Order Comment: Speci men Type: URINE SPECIMEN Performed By: #### 2 4356-8 #### [facility] CLIA [id number] [address] [place] [address] Hyaline casts (Urine sed) [#/Area] 4-10 /LPF Abnormal 0 /LPF [facility] Comment on above: Order Comment: Speci men Type: URINE SPECIMEN Performed By: #### 2 4356-8 #### [facility] CLIA [id number] [address] [place] [address] Ketones Ql (U) Negative Normal Negative [facility] Comment on above: Order Comment: Speci men Type: URINE SPECIMEN Performed By: #### 2 4356-8 #### [facility] CLIA [id number] [address] [place] [address] Leukocyte esterase Test strip Ql (U) Large Abnormal Negative [facility] Comment on above: Order Comment: Speci men Type: URINE SPECIMEN Performed By: #### 2 4356-8 #### [facility] CLIA [id number] [address] [place] [address] Nitrite Ql (U) Positive Abnormal Negative [facility] Comment on above: Order Comment: Speci men Type: URINE SPECIMEN Performed By: #### 2 4356-8 #### [facility] CLIA [id number] [address] [place] [address] pH (U) 6.0 [pH] Normal 5.0-8.0 [facility] Comment on above: Order Comment: Speci men Type: URINE SPECIMEN Performed By: #### 2 4356-8 #### [facility] CLIA [id number] [address] [place] [address] Protein (U) [Mass/Vol] Negative Normal Negative [facility] Comment on above: Order Comment: Speci men Type: URINE SPECIMEN Performed By: #### 2 4356-8 #### [facility] CLIA [id number] [address] [place] [address] RBC LM.HPF (Urine sed) [#/Area] 0-3 /HPF Normal 0-3 /HPF [facility] Comment on above: Order Comment: Speci men Type: URINE SPECIMEN Performed By: #### 2 4356-8 #### [facility] CLIA [id number] [address] [place] [address] Specific gravity (U) [Rel density] 1.010 Normal 1.005-1.030 [facility] Comment on above: Order Comment: Speci men Type: URINE SPECIMEN Performed By: #### 2 4356-8 #### [facility] CLIA [id number] [address] [place] [address] Urobilinogen Ql (U) 0.2 EU/dL Normal 0.2-1.0 EU/dL [facility] Comment on above: Order Comment: Speci men Type: URINE SPECIMEN Performed By: #### 2 4356-8 #### [facility] CLIA [id number] [address] [place] [address] WBC LM.HPF (Urine sed) [#/Area] /[HPF] Abnormal 0-5 /HPF [facility] Comment on above: Order Comment: Speci men Type: URINE SPECIMEN Performed By: #### 2 4356-8 #### [facility] CLIA [id number] [address] [place] [address] 48 HR HOLTER MONITORon 04-19 48 HR HOLTER MONITOR IMPRESSIONS AND FIN DINGS: Scanned 22-APR-2019 The basic underlying rhythm is sinus with an average rate of 77 BPM, a minimum rate of 52 BPM and a maximum rate of 118 BPM. There were 40 isolated premature atrial complexes and one atrial couplet. There were two atrial runs consisting of six beats. T he longest run consisted of three beats at a rate of 96 BPM occuring at 05:10 on 20-APR-2019. The fastest run consisted of thre e beats at a rate of 135 BPM occuring at 05:39 on 20-APR-2019. There were 14 isolated ventricular complexes and two ventricular couplets. There were two ventricular runs consisting of seven beats. The longest and fastest run consisted of four beats at a rate of 141 BPM occuring at 06:33 on 21-APR-2019. There were no diary symptoms documented. Hookup Date: 20190419 Hookup Time: 324153 Recording Duration: 660492 S Minimum Heart Rate: 52 BPM Minimum Heart Rate Date/Time: 20190421 682900 Maximum Heart Rate: 118 BPM Maximum Heart Rate Date/Time: 20190421 022520 Average Heart Rate: 77 BPM Longest RR: 1.264 S Longest RR DATE/TIME: [id number] QRS complexes: 744896 Ventricular Ectopics: 25 Ventricular Isolated Beats: 14 Ventricular Bigeminal Cycles: 0 Ventricular Couplets: 2 Ventricular Runs: 2 Ventricular Beats in Runs: 7 Longest Ventricular Run, Beats: 4 Longest Ventricular Run Rate: 141 BPM Longest Ventricular Run, Date/Time: 20190421 Fastest Ventricular Run, Beats: 4 Fastest Ventricular Run Rate: 141 BPM Fastest Ventricular Run, Date/Time: 20190421 Supraventricular Ectopics: 48 Supraventricular Isolated Beats: 40 Supraventricular Couplets: 1 Supraventricular Runs: 2 Supraventricular Beats in Runs: 6 Longest Supraventricular Run Date/Time: 20190420 Fastest Supraventricular Run, Date/Time: 20190420 Overreading Physician: QIAN CLIFFORD M.D. See Holter MUSE for ECG strips. [facility] 04-19-2019 ALLIED HEALTH HNO ID: [id number] Author: Adri Edmondson) Mayelin Pacheco Service: Radiology Author Type: Weapons System Instrument Mechanic Type: Allied Health Filed: 04/19/2019 10:59 AM Note Text: RADIOLOGY SERVICE PROGRESS NOTE SERVICE DATE: 04/19/2019 SERVICE TIME: 10:58 AM PATIENT IDENTITY VERIFICATION COMPLETED USING TWO (2) STANDARD IDENTIFIERS: Name and Date of confirmed by patient verbally and Name and Date of confirmed by identification band PATIENT GENDER DATA: .female : No ALLERGIES: Reviewed and unchanged MEDICATIONS REVIEWED: Not applicable PATIENT RELEVANT IMPLANT DATA REVIEWED: Not Applicable CREATININE: Creatinine Date Value Ref Range Status 03/12/2019 1.20 (H) 0.58 - 0.96 mg/dL Final 12/02/2018 1.35 (H) 0.58 - 0.96 mg/dL Final 10/07/2017 1.21 (H) 0.58 - 0.96 mg/dL Final eGFR-All Other Races Date Value Ref Range Status 03/12/2019 46 . Final Comment: eGFR (Estimated GFR) Units of measure: mL/min/1.73 meters squared eGFR is derived from the reexpressed MDRD Study equation using the following parameters: serum creatinine, age, gender and race. The creatinine assay has been calibrated to be traceable to IDMS. An eGFR <60 mL/min/1.73m2 for >3 months is consistent with chronic kidney disease. Refer to KDOQI guidelines for clinical interpretation. In patients with unstable renal function, e.g. those with acute kidney injury, the eGFR may not accurately reflect actual GFR. eGFR- Date Value Ref Range Status 03/12/2019 56 Final P.O.C.T. RESULTS: N/A April 19, [address] PERFORMED: No IV SITE: Ambulatory: A peripheral IV was started in the Left forearm with a Angio cath: 24 gauge. POST EXAM PIV STATUS: Discontinued PROCEDURE TYPE: NM Stress: 12.8mCi Al22a-Flyiqey was administered IV for Rest Imaging at 9:45 by MINO SETH. 32.8 mCi [id number]-Csbsxre was administered IV for Stress Imaging at 10:48 by RT Yemi. PATIENT DISCHARGED TO: Ambulatory patient, left NM department area. A Diagnostic radioactive procedure has taken place, with no further precautions necessary other than routine body substance precautions. More information regarding radiation safety can be found using this link: [email or web address] SIGNATURE: RT Yemi PATIENT NAME: Terry Joe DATE: April 19, 2019 TIME: 10:58 AM PAGER/CONTACT #: [facility] NM CARDIAC PERF STRESS/PHARM on 04-19-2019 NM CARDIAC PERF STRESS/PHARM * * *Final Report* * * DATE OF EXAM: Apr 19 2019 12:45PM JEISON 0006 - CT CARDIAC PERF STRESS/PHARM / PROCEDURE REASON: CHEST PAIN R07.9 * * * * Physician Interpretation * * * * PATIENT: Name: TERRY JOE Age: 59 years Gender: F CONCLUSIONS: 1. SPECT Perfusion Study: Normal. 2. There is no scintigraphic evidence for inducible ischemia. 3. No evidence of scarred myocardium. 4. Functional capacity N/A (pharmacological). 5. Left ventricle is normal in size. The left ventricle systolic function is normal. 6. Right ventricle is normal in size. 7. This is a low risk scan. 1 LVEF % 74 Prior Study Comparison No prior nuclear cardiology exam available for comparison. Nuclear Med Report:1-Day Tc-Tetrofosmin Gated SPECT Myocardial Perfusion with Regadenoson Stress: Myocardial perfusion imaging was performed at rest 30 minutes following the IV injection of Tc-99m tetrofosmin. The patient received 0.4 mg of regadenoson, via rapid IV push, immediately followed by Tc-99m tetrofosmin IV. Gated post stress tomographic imaging was performed 30 to 60 minutes later. See administered doses below. [facility] Date of service: 04/19/2019 9:59:20 AM Ordering Physician: EDDIE RASCON Requesting Physician: Indication: CP - ECG uniterpretable OR unable to exercise. Interpreting physician: Caryl Zendejas DO Patient History: History of chronic kidney disease, dyslipidemia, smoker and family hx of premature CAD. Medications currently taking are statins. Height: 165.10 cm BSA: 1.80 m? Weight: 70.31 kg BMI: 25.8 kg/m? Imaging Protocol Limitation Reason G.I. uptake. Pt was ReScanned: Yes. Primary Rhythm: Sinus. Secondary Rhythm: Sinus. Exam Type: Rest Stress Radiopharm: Tc-99m Tetrofosmin Tc-99m Tetrofosmin Dosage(mCi): 12.8 32.8 Atten Correction: not performed Stress Agent: Regadenoson 0.4mg Supply provided from [facility] Resting Heart Rate: 53 bpm Resting Blood Press: 115/63 mmHg Image Quality The overall study imaging quality was deemed to be good. The following technical issues were noted: G.I. uptake. FINDINGS: Left Ventricle Wall Motion: 1 - All segments are normal. 1 1 LVEF: 74 % LEFT VENTRICLE The left ventricle is normal in size. Left ventricular systolic function is normal. Right Ventricle The right ventricle is normal in size. Stress Test Findings: There is no scintigraphic evidence for inducible ischemia. There is no evidence of scarring. The stress test was terminated due to the following: End of Protocol. Peak HR 91 bpm. (57 % MPHR) Peak BP 130 mmHg/76 mmHg Patient experienced shortness of breath and headache during stress. Stress ECG normal ST segment response and normal sinus rhythm. Stress complications: none. Final Capacitor Assembler: YADIRA Transcribe Date/Time: Apr 19 2019 9:59A Dictated by : CARYL ZENDEJAS DO This examination was interpreted and the report reviewed and electronically signed by: CARYL ZENDEJAS DO on Apr 19 2019 4:08PM EST [id number] [facility] NUCLEAR STRESS LEXISCAN (CAR D)on 04-19-2019 NUCLEAR STRESS LEXISCAN (CARD) NAME : TERRY JOE PID : [id number] : 1960 Gender : Female Race : ORD : [id number] Procedure Date : Apr 19 2019 10:47:28 Edit Date : Apr 21 2019 12:30:26 Conclusions:PLEASE REFER TO IMAGING SECTION IN [facility] FOR COMPLETE INTERPRETATION OF STRESS TEST AND MYOCARDIAL PERFUSION IMAGING Protocol Name : LEXISCAN Time In Exercise Phase : 00:06:00 Max. Systolic BP : 130 mmHg Max Diastolic BP : 76 mmHg Max Heart Rate : 95 BPM Max Predicted Heart Rate : 161 BPM Recovery ECG Response (OLD) : Reason For Termination : End of Protocol Test Reason : Chest Pain Location :NSL Overread By : CARYL ZENDEJAS D.O. Edited By : Eryn Parmar Referred By : TARAH ROOT Acquired by : Eryn Parmar [facility] Kirsten 04-16-2019 CNPN Telephone (CDLBME) TERRY JOE ([id number]) [address] [facility] Date Time Provider Department 04/16/19 SARA SOLANO (RN) CDLBME During your visit today, we recorded the following information about you: Sara Solano RN, RN 04/16/2019 10:47 AM Signed Spoke with patient regarding reminder for stress test on Friday and given instructions Allergies As of Date: 04/16/2019 Noted Allergy Reaction BACTRIM (SULFAMETHOXAZOLE-TRIMETH*0 10/11/2014 11 - Vomiting MACROBID (NITROFURANTOIN MONOHYD/*12/10/2016 16 - Unknown PENICILLINS 10/11/2014 2 - Rash Date Reviewed: 03/16/2019 Reviewed by: Geri Mahoney (Yogi) YOGI Chicas - Fully Assessed Reason for Visit: Reminder Call [[id number]] Prescriptions as of 04/16/2019 Sig: ATORVASTATIN 40 MG TABLET Take 1 tablet by mouth daily * NICOTINE 14 MG/24 HR DAILY TR* Apply 1 Patch as directed fiona* Patient not taking: Reported on 03/16/2019 NICOTINE 7 MG/24 HR DAILY TRA* Apply 1 Patch as directed fiona* Patient not taking: Reported on 03/16/2019 ALBUTEROL SULFATE HFA 90 MCG/* Inhale 2 Puffs as instructed * Problem List As Of Date 04/16/2019 Noted Resolved Cancer of left ureter (HCC) [C66.2] 10/11/2014 More... Cervical cancer (HCC) [C53.9] 10/11/2014 More... Foot drop, right [M21.371] 10/11/2014 More... More... COPD (chronic obstructive pulmonary disease) (H*10/11/2014 More... Cervical pain [M54.2] 10/11/2014 More... Depression with anxiety [F41.8] 03/19/2016 Adjustment disorder [F43.20] 03/19/2016 Tobacco use [Z72.0] 04/03/2016 S/p nephrectomy [Z90.5] 04/03/2016 Stage 3 chronic kidney disease [N18.3] 04/03/2016 Spondylosis of cervical region without myelopat*04/24/2016 H. pylori infection [A04.8] 10/09/2017 Hyperlipidemia [E78.5] Encounter Status:Closed by SARA SOLANO on 04/16/19 [facility] Abdomen/Pelvis without Conto n 08-19-2017 Abdomen/Pelvis without Cont [facility] [address] [place], [place] [address]Ffaomiz/Pelvis without ContMR#: [id number] Acct: [id number]: TERRY JOE Rep #: [id number]: 1960 F 57 [facility] MDPCP: Care Physician, No Primary Status: REG CLIStudy: Abdomen/Pelvis without Cont Date of Exam: 08/19/17Exam# [id number] Ordering Dr: Addi Ureña MDSTUDY: CT ABDOMEN AND PELVIS WITHOUT CONTRASTREASON FOR EXAM: Female, 57 years old. Malignant neoplasm of the leftureter.RADIATION DOSAGE (If Supplied By Facility): CTDIvol = ( 9.60 ) mGy, DLP =( 451.90 ) mGycmTECHNIQUE: Transaxial images were obtained from the dome of the diaphragmto the symphysis pubis without oral contrast, and without intravenouscontrast. Sagittal and coronal images were reconstructed.Individualize d dose optimization techniques were used for this CT.COMPARISON: None. FINDINGS:The lung bases are clear.A 1.5 cm area of low attenuation in the anterior segment of the right lobeof the liver. There are no dilated intrahepatic biliary radicles. Thegallbladder is normal.The spleen, pancreas and both adrenals are normal. The right kidney isnormal. Previous left nephrectomy.The stomach is normal. There is no bowel distention, acute appendicitis ordiverticulitis. No abnormally constricting large bowel lesions.The abdominal wall is intact. There is no ascites, free intraperitonealair or any evidence of epiploic appendagitis. The vascular structures inthe retroperitoneum are normalThe bones and joints seen are normal with no osteolytic or osteoblasticchangesThere is no retrocrural, retroperitoneal or mesenteric adenopathy. Thereis no mesenteric mistinessThe urinary bladder is normal.. Previous hysterectomy There is no inguinalor pelvic adenopathy and there is no inguinal hernia. ORDER #: [id number] CT/Abdomen/Pelvis without ContIMPRESSION:No acute findings in the abdomen or pelvis. Specifically there is no acuteappendicitis or diverticulitisA 1.5 cm area of low-attenuation in the anterior segment of the right lobeof the liver..Left nephrectomyElectronically Signed:Sonny Monreal, at 7:38 EDTTel , Service support , IE: No Primary Care Physician; Addi Ureña MD Capacitor Assembler:Signed [facility] Emergency Department Summary on 07-07-2017 Emergency Department [facility] [id number] [place] [address]Qkcgzhswm Department Fvckgbq34/25/18 1553MR#: [id number] Acct: [id number]: TERRY JOE Rep #: [id number]: 1960 57 From: Sia Tay MDPCP: Care Physician, No Primary Status: DEP ER- ER Visit SummaryDate of Service: 07/06/17Chief Complaint: Back painHistory of Present Illness: The patient is a 57 F with a 5 day history of left lower back pain.Patient was recently seen here for cough and UTI. She completed her course of Cipro andstates she no longer has urinary symptoms. She does continue to have cough and states that herupper respiratory symptoms have not significantly improved. She now has left lower back painthat is worse with movement. It is not radiating to her leg. Patient has had prior leftureteral cancer and only has her right kidney. She initially had fever but that has resolvedwith her antibiotic treatment.Physical Examination: Vital signs are unremarkable.Patient sitting upright in bed no acute distress.Head neck examination is grossly unremarkable.Heart is regular rate and rhythm.Lung sounds are clear with good air movement.Abdomen is soft with mild diffuse tenderness palpation. No guarding or rebound. Active bowelsounds are noted.Back examination was reproducible tenderness in the left lower lumbar paraspinals. She has noCVA tenderness.Extremity examination reveals normal strength and sensation throughout. She has strong distalpulses.Test Results: CBC was a white count of 3.4 with 58% lymphocytes. Chemistry studies revealcreatinine 1.4 which is consistent with her prior values. Urinalysis is a contaminated sample.She has 10-25 epithelial cells only 5-10 white blood cells. Chest x-ray reveals no focalconsolidation.Emergenc y Department Course and Treatment: Patient was given IV fluids, morphine, and Zofran.On repeat evaluation she feels improved. She is reassured with the laboratory and x-rayfindings. Patient will be given a short course of [place] for pain. We will avoidanti-inflammatories as she is only 1 functioning kidney.Treatment Plan: []Disposition: DischargeImpression:1. Viral URI with cough2. Left lumbar paraspinal strainThis note was generated with [employer] dictation software. It may contain incorrect words,spelling, and punctuation that were not noted in review of the chart prior to signingED Disposition- Plan for ED Patient:Chief Complaint: BackReferrals:Care Physician,No Primary [Primary Care Provider] -What to do if you have ProblemsFor any increased pain, shortness of breath, bleeding, nausea or vomiting, chest pain, or anyunexpected problems, contact your Primary Care Provider. Call [facility] ([phone])or report to the closest Emergency Room.Call 911 if necessary.07/06/17 5852 Date Sia Tay [facility] [place] Signature (If Indicated): Date CC: No Primary Care Physician [facility] Basic Metabolic Profile (BMP )on 07-06-2017 BUN (urea nitrogen) 11.4 RATIO Normal 10-20 [facility] Comment on above: Performed By: #### L 500.2500 ####[facility] [address] [facility] [address] Calcium 7.8 mg/dL Low 8.5-10.1 [facility] Comment on above: Performed By: #### L 500.2500 ####[facility] [address] [facility] [address] Chloride 107 mmol/L Normal 98-107 [facility] Comment on above: Performed By: #### L 500.2500 ####[facility] [address] [place], [address] CO2 25.0 mmol/L Normal 21.0-32.0 [facility] Comment on above: Performed By: #### L 500.2500 ####[facility] [address] [place], [address] Creatinine 1.40 mg/dL High 0.55-1.02 [facility] Comment on above: Result Comment: The validity of the calculated GFR AND GFRAA in patients over70 years has not been determined. Clinical correlation isessential. Performed By: #### L 500.2500 ####[facility] [address] [place], [address] eGFR (non-black) 50 mL/min/{1.73_m2} Low >60 [facility] Comment on above: Result Comment: Afri can Bulgarian GFR Calc Performed By: #### L 500.2500 ####[facility] [address] [place], [address] eGFR (non-black) 41 mL/min/{1.73_m2} Low >60 [facility] Comment on above: Result Comment: Non- GFR Calc Performed By: #### L 500.2500 ####[facility] [address] [place], [address] Estimated CRCL 38.28 ml/min Normal [facility] Comment on above: Performed By: #### L 500.2500 ####[facility] [address] [place], [address] GAP 10 Normal 5-15 [facility] Comment on above: Performed By: #### L 500.2500 ####[facility] [address] [place], [address] Glucose mass conc 83 mg/dL Normal 74-106 [facility] Comment on above: Result Comment: Tamara mendieta note revised GLUCOSE reference range jfgkedlbp92/02/2018. Performed By: #### L 500.2500 ####[facility] [address] [place], [address] Potassium molar conc 3.6 mmol/L Normal 3.5-5.1 [facility] Comment on above: Performed By: #### L 500.2500 ####[facility] [address] [place], [address] Sodium 142 mmol/L Normal 136-145 [facility] Comment on above: Performed By: #### L 500.2500 ####[facility] [address] [place], [address] Urea nitrogen 16 mg/dL Normal 7-18 [facility] Comment on above: Performed By: #### L 500.2500 ####[facility] [address] [place], [address] CBC W/Diff, Automatedon - Absolute Neut 1.1 X10 3/uL Low 2.0-7.7 [facility] Comment on above: Performed By: #### L 100.0100 ####[facility] [address] [place], [address] Basophils/100 WBC Auto (Bld) 0.3 % Normal 0-1 [facility] Comment on above: Performed By: #### L 100.0100 ####[facility] [address] [place], [address] Eosinophils/100 leukocytes 0.3 % Normal 0-5 [facility] Comment on above: Performed By: #### L 100.0100 ####[facility] [address] [place], [address] Erythrocyte distribution width Auto Ratio (RBC) 13.8 % Normal 11.6-14.6 [facility] Comment on above: Performed By: #### L 100.0100 ####[facility] [address] [place], [address] Erythrocytes (RBC) 4.46 M/mm3 Normal 4.2-5.4 [facility] Comment on above: Performed By: #### L 100.0100 ####[facility] [address] [place], [address] Hematocrit (HCT) 41.2 % Normal 37-47 [facility] Comment on above: Performed By: #### L 100.0100 ####[facility] [address] [place], [address] Hemoglobin mass conc (Bld) 14.2 g/dL Normal 12.0-15.0 [facility] Comment on above: Performed By: #### L 100.0100 ####[facility] [address] [place], [address] IM GRAN % 0.000 % Normal 0.0-0.9 [facility] Comment on above: Result Comment: IG% - Immature Granulocytes (promyelocytes, myelocytes andmetamyelocytes) > 1% indicates that a LEFT SHIFT is Present. Performed By: #### L 100.0100 ####[facility] [address] [place], [address] Lymphocytes 1.98 X10 3/ul Normal 0.83-4.51 [facility] Comment on above: Performed By: #### L 100.0100 ####[facility] [address] [place], [address] Lymphocytes/100 leukocytes 58.8 % High 19-41 [facility] Comment on above: Performed By: #### L 100.0100 ####[facility] [address] [place], [address] MCH 31.8 pg Normal 27.0-32.0 [facility] Comment on above: Performed By: #### L 100.0100 ####[facility] [address] [place], [address] MCHC mass conc (RBC) 34.5 g/gl Normal 32-36 [facility] Comment on above: Performed By: #### L 100.0100 ####[facility] [address] [place], [address] MCV 92.4 fL Normal 81-99 [facility] Comment on above: Performed By: #### L 100.0100 ####[facility] [address] [place], [address] Monocytes/100 leukocytes 8.6 % Normal 0-10 [facility] Comment on above: Performed By: #### L 100.0100 ####[facility] [address] [place], [address] Neutrophils/100 WBC Auto (Bld) 32.0 % Low 47-70 [facility] Comment on above: Performed By: #### L 100.0100 ####[facility] [address] [place], [address] Platelet mean volume (PMV) 12.5 fL High 6.2-12.0 [facility] Comment on above: Performed By: #### L 100.0100 ####[facility] [address] [place], [address] Platelets 117 10*3/uL Low 150-450 [facility] Comment on above: Performed By: #### L 100.0100 ####[facility] [address] [place], [address] RDW SD 45.7 fl High 35.1-43.9 [facility] Comment on above: Performed By: #### L 100.0100 ####[facility] [address] [place], [address] WBC (Leukocytes) 3.4 10*3/uL Low 4.4-11.0 [facility] Comment on above: Performed By: #### L 100.0100 ####[facility] [address] [place], [address] Chest PA and Lateralon 07-06 Chest PA and Lateral [facility] [address] [place] [address]Iseyr PA and LateralMR#: [id number] Acct: [id number]: TERRY JOE Rep #: [id number]: 1960 F 57 From: Sia Gold MDPCP: Care Physician, No Primary Status: REG ERStudy: Chest PA and Lateral Date of Exam: 07/06/17Exam# [id number] Ordering Dr: Sia Tay MDSTUDY: X-RAY CHESTREASON FOR EXAM: Female, 57 years old. CoughTECHNIQUE: Frontal and lateral views of the chest were obtained.COMPARISON: July 01, 2017 FINDINGS:The lungs are hyperinflated. There are no focal airspace opacities. Thereis no demonstrated pleural abnormality.The cardiac silhouette is normal in size. The mediastinum and hilarregions are unremarkable. Normal visualized pulmonary arteries. There isatherosclerotic calcification of the thoracic aorta.The thoracic spine is unremarkable. The visualized ribs, clavicles, andshoulders are unremarkable.There is no demonstrated abnormality of the visualized upper abdomen. ORDER #: [id number] RAD/Chest PA and LateralIMPRESSION:There is no evidence of focal consolidation or pleural effusion.Stable hyperinflation.Electronical ly Signed:Sia Gold MD at 16:30 EDTTel Direct: [phone], Service support , RJ: No Primary Care Physician; Sia Tay MD Capacitor Assembler:Signed [facility] Discharge Instructionon 06-13 Discharge Instruction [facility] [id number] [place] [address]Gkpagwjol Yvjgffjnrdq63/25/18 1727#: [id number] Acct: [id number]: TERRY JOE Rep #: [id number]: 1960 57 From: Sia Tay MDPCP: Care Physician, No Primary Status: REG ERED Disposition- Plan for ED Patient:Disposition: Home or Assisted LivingChief Complaint: BackInstructions: ED Sprain Strain Lumbar, ED Upper Resp Infec No Abx TxPrescriptions:Hydrocodone Bitart/Apap 5-325 [[place] 5/325] 1 - 2 tablet PO Q6H PRN PRN 4 Days #12 tabletPRN Reason: PainReferrals:Fast,Zaira, DO [NON-STAFF] - As NeededWhat to do if you have ProblemsFor any increased pain, shortness of breath, bleeding, nausea or vomiting, chest pain, or anyunexpected problems, contact your Primary Care Provider. Call [facility] ([phone])or report to the closest Emergency Room.Call 911 if necessary.07/06/171728 Date Sia Tay [facility] [place] Signature (If Indicated): Date CC: No Primary Care Physician [facility] Urinalysis, Completeon 07-06 MUCUS, URINE 0 SEEN Normal [facility] Comment on above: Order Comment: Order Date: 07/06/17Has pt arrived? YHow was Urine Obtained? CLEAN CATCH Performed By: #### L 400.0001 ####[facility] [address] [place], [address] SQUAM EPI 10-25 SEEN Normal 5-10 [facility] Comment on above: Order Comment: Order Date: 07/06/17Has pt arrived? YHow was Urine Obtained? CLEAN CATCH Performed By: #### L 400.0001 ####[facility] [address] [place], [address] Urine, bacteria in sediment 2+ /hpf Normal None Seen [facility] Comment on above: Order Comment: Order Date: 07/06/17Has pt arrived? YHow was Urine Obtained? CLEAN CATCH Performed By: #### L 400.0001 ####[facility] [address] [place], [address] Urine, erythrocytes 0-5 SEEN Normal 0-5 [facility] Comment on above: Order Comment: Order Date: 07/06/17Has pt arrived? YHow was Urine Obtained? CLEAN CATCH Performed By: #### L 400.0001 ####[facility] [address] [place], [address] WBC (Leukocytes) 5-10 SEEN Normal 0-5 [facility] Comment on above: Order Comment: Order Date: 07/06/17Has pt arrived? YHow was Urine Obtained? CLEAN CATCH Performed By: #### L 400.0001 ####[facility] [address] [place], [address] BILIRUBIN URINE Negative Normal Negative [facility] Comment on above: Order Comment: Order Date: 07/06/17Has pt arrived? YHow was Urine Obtained? CLEAN CATCH Performed By: #### L 400.0001 ####[facility] [address] [place], [address] Glucose mass conc Normal Normal Normal [facility] Comment on above: Order Comment: Order Date: 07/06/17Has pt arrived? YHow was Urine Obtained? CLEAN CATCH Performed By: #### L 400.0001 ####[facility] [address] [place], [address] KETONE UR 5 mg/dl High Negative [facility] Comment on above: Order Comment: Order Date: 07/06/17Has pt arrived? YHow was Urine Obtained? CLEAN CATCH Performed By: #### L 400.0001 ####[facility] [address] [place], [address] LEUK ESTERASE 500 /ul High Negative [facility] Comment on above: Order Comment: Order Date: 07/06/17Has pt arrived? YHow was Urine Obtained? CLEAN CATCH Performed By: #### L 400.0001 ####[facility] [address] [place], [address] NITRITE UR Negative Normal Negative [facility] Comment on above: Order Comment: Order Date: 07/06/17Has pt arrived? YHow was Urine Obtained? CLEAN CATCH Performed By: #### L 400.0001 ####[facility] [address] [place], [address] OCCULT BLOOD-UR 10 /ul High Negative [facility] Comment on above: Order Comment: Order Date: 07/06/17Has pt arrived? YHow was Urine Obtained? CLEAN CATCH Performed By: #### L 400.0001 ####[facility] [address] [place], [address] pH UR 5.0 Normal 5.0 - 8.0 [facility] Comment on above: Order Comment: Order Date: 07/06/17Has pt arrived? YHow was Urine Obtained? CLEAN CATCH Performed By: #### L 400.0001 ####[facility] [address] [place], [address] PROT DIPSTX 30 mg/dl High Negative [facility] Comment on above: Order Comment: Order Date: 07/06/17Has pt arrived? YHow was Urine Obtained? CLEAN CATCH Performed By: #### L 400.0001 ####[facility] [address] [place], [address] SP.GR. DIPSTX 1.020 Normal 1.002-1.030 [facility] Comment on above: Order Comment: Order Date: 07/06/17Has pt arrived? YHow was Urine Obtained? CLEAN CATCH Performed By: #### L 400.0001 ####[facility] [address] [place], [address] Urine, clarity Clear Normal Clear [facility] Comment on above: Order Comment: Order Date: 07/06/17Has pt arrived? YHow was Urine Obtained? CLEAN CATCH Performed By: #### L 400.0001 ####[facility] [address] [place], [address] Urine, color Yellow Normal Yellow [facility] Comment on above: Order Comment: Order Date: 07/06/17Has pt arrived? YHow was Urine Obtained? CLEAN CATCH Performed By: #### L 400.0001 ####[facility] [address] [place], [address] UROBILI 1 mg/dl High Normal [facility] Comment on above: Order Comment: Order Date: 07/06/17Has pt arrived? YHow was Urine Obtained? CLEAN CATCH Performed By: #### L 400.0001 ####[facility] [address] [place], [address] Chest PA and Lateralon 07-01 Chest PA and Lateral [facility] [address] [facility] [place] [address]Ezhio PA and LateralMR#: [id number] Acct: [id number]: TERRY JOE Rep #: [id number]: 1960 F 57 From: Jalen Garcia MDPCP: Care Physician, No Primary Status: REG ERStudy: Chest PA and Lateral Date of Exam: 07/01/17Exam# [id number] Ordering Dr: Clive Merchant DOSTUDY: X-RAY CHESTREASON FOR EXAM: Female, 57 years old. One day history of fever, coughand dyspnea.TECHNIQUE: PA and lateral views of the chest.COMPARISON: None. FINDINGS:Hyper inflation. The lungs are clear. There is a pectus excavatumdeformity. There is no demonstrated pleural abnormality.Normal size heart. Normal mediastinum and queenie. Normal visualizedpulmonary arteries. There is atherosclerotic calcification of the aorticarch with tortuosity.Normal visualized thoracic spine. Normal visualized ribs, clavicles, andshoulders.There is no demonstrated abnormality of the visualized soft tissuestructures of the upper abdomen. ORDER #: [id number] RAD/Chest PA and LateralIMPRESSION:Hyperinfl ation.Pectus excavatum deformity.Electronically Signed:Jalen Garcia MD2018/07/01 at 13:36 EDTTel [phone], Service support , BD: No Primary Care Physician; Clive Merchant DO Capacitor Assembler:Signed Normal [facility] Emergency Department Summary on 07-01-2017 [facility] [address] [place], [place] [address]Nasewhzsc Department Bulyxqg91/20/18 [id number]#: [id number] Acct: [id number]: TERRY JOE Rep #: [id number]: 1960 57 From: Clive Merchant DOPCP: Care Physician, No Primary Status: REG ER- ER Visit SummaryDate of Service: 07/01/17Chief Complaint: Upper respiratory infection and possible urinary tract infectionHistory of Present Illness: The patient is a 57 F who presents with upper respiratorycongestion and possible urinary tract infection that began yesterday. Patient states she hasbeen having some fevers and chills at home yesterday. Patient states she has some aching allover. Patient states she has a history of frequent urinary tract infections and states thisfeels similar to those. Patient also admits to a headache and a productive cough. Patient isunsure of the color of the sputum. Patient denies any nausea or vomiting. Patient denies anyother symptoms.Physical Examination: Vital signs show blood pressure 93/59 and a temperature of 100.4.Remaining vital signs are stable. Patient is in no acute distress. Oral mucosa is pink andmoist. Tympanic membranes are clear bilaterally. Neck is supple. Trachea is midline. Thereis no JVD or lymphadenopathy. Heart was regular rate and rhythm. Lungs are clear and equalbilateral. There is good respiratory effort noted. Abdomen is soft. Bowel sounds are normal.There is no tenderness noted. There is no rebound or guarding noted. Cranial nerves IIthrough XII are intact. There are no focal motor or sensory deficits noted. The remainingphysical exam is within normal limits.Test Results: Urinalysis showed evidence of urinary tract infection. Chest x-ray does not showany acute cardiopulmonary process.Emergency Department Course and Treatment: Patient felt better on reevaluation. Patient wasgiven a prescription for Cipro. Patient was instructed to follow-up with her primary carephysician in 7-10 days. She understood and was agreeable with the plan. All questions wereanswered.Disposition: Discharge homeImpression: Urinary tract infectionThis note was generated with [employer] dictation software. It may contain incorrect words,spelling, and punctuation that were not noted in review of the chart prior to signingED Disposition- Plan for ED Patient:Disposition: Home or Assisted LivingChief Complaint: Cold SxDiagnosis:Urinary tract infectionInstructions: ED UTI Cystitis FemalePrescriptions:Ciprofl oxacin [Cipro] 500 mg PO BID 5 Days #10 tabReferrals:Care Physician,No Primary [Primary Care Provider] -What to do if you have ProblemsFor any increased pain, shortness of breath, bleeding, nausea or vomiting, chest pain, or anyunexpected problems, contact your Primary Care Provider. Call [facility] ([phone])or report to the closest Emergency Room.Call 911 if necessary.07/01/17 7061 Date Clive Merchant DOCosigncordell Signature (If Indicated): Date CC: No Primary Care Physician Normal [facility] Urinalysis, Completeon 07-01 BILIRUBIN URINE Negative Normal Negative [facility] Comment on above: Order Comment: Order Date: 07/01/17How was Urine Obtained? CLEAN CATCH Performed By: #### L 400.0001 ####[facility] [address] [place], [address] Glucose mass conc Normal Normal Normal [facility] Comment on above: Order Comment: Order Date: 07/01/17How was Urine Obtained? CLEAN CATCH Performed By: #### L 400.0001 ####[facility] [address] [place], [address] KETONE UR Negative Normal Negative [facility] Comment on above: Order Comment: Order Date: 07/01/17How was Urine Obtained? CLEAN CATCH Performed By: #### L 400.0001 ####[facility] [address] [place], [address] LEUK ESTERASE 500 /ul High Negative [facility] Comment on above: Order Comment: Order Date: 07/01/17How was Urine Obtained? CLEAN CATCH Performed By: #### L 400.0001 ####[facility] [address] [place], [address] MUCUS, URINE 0 SEEN Normal [facility] Comment on above: Order Comment: Order Date: 07/01/17How was Urine Obtained? CLEAN CATCH Performed By: #### L 400.0001 ####[facility] [address] [place], [address] NITRITE UR Negative Normal Negative [facility] Comment on above: Order Comment: Order Date: 07/01/17How was Urine Obtained? CLEAN CATCH Performed By: #### L 400.0001 ####[facility] [address] [place], [address] OCCULT BLOOD-UR 25 /ul High Negative [facility] Comment on above: Order Comment: Order Date: 07/01/17How was Urine Obtained? CLEAN CATCH Performed By: #### L 400.0001 ####[facility] [address] [place], [address] pH UR 6.0 Normal 5.0 - 8.0 [facility] Comment on above: Order Comment: Order Date: 07/01/17How was Urine Obtained? CLEAN CATCH Performed By: #### L 400.0001 ####[facility] [address] [place], [address] PROT DIPSTX 15 mg/dl High Negative [facility] Comment on above: Order Comment: Order Date: 07/01/17How was Urine Obtained? CLEAN CATCH Performed By: #### L 400.0001 ####[facility] [address] [place], [address] SP.GR. DIPSTX 1.010 Normal 1.002-1.030 [facility] Comment on above: Order Comment: Order Date: 07/01/17How was Urine Obtained? CLEAN CATCH Performed By: #### L 400.0001 ####[facility] [address] [place], [address] SQUAM EPI 5-10 SEEN Normal 5-10 [facility] Comment on above: Order Comment: Order Date: 07/01/17How was Urine Obtained? CLEAN CATCH Performed By: #### L 400.0001 ####[facility] [address] [place], [address] Urine, bacteria in sediment 1+ /hpf Normal None Seen [facility] Comment on above: Order Comment: Order Date: 07/01/17How was Urine Obtained? CLEAN CATCH Performed By: #### L 400.0001 ####[facility] [address] [place], [address] Urine, clarity Sl. Cloudy Normal Clear [facility] Comment on above: Order Comment: Order Date: 07/01/17How was Urine Obtained? CLEAN CATCH Performed By: #### L 400.0001 ####[facility] [address] [place], [address] Urine, color Yellow Normal Yellow [facility] Comment on above: Order Comment: Order Date: 07/01/17How was Urine Obtained? CLEAN CATCH Performed By: #### L 400.0001 ####[facility] [address] [place], [address] Urine, erythrocytes 0 SEEN Normal 0-5 [facility] Comment on above: Order Comment: Order Date: 07/01/17How was Urine Obtained? CLEAN CATCH Performed By: #### L 400.0001 ####[facility] [address] [place], [address] UROBILI Normal Normal Normal [facility] Comment on above: Order Comment: Order Date: 07/01/17How was Urine Obtained? CLEAN CATCH Performed By: #### L 400.0001 ####[facility] [address] [place], [address] WBC (Leukocytes) 10-25 SEEN Normal 0-5 [facility] Comment on above: Order Comment: Order Date: 07/01/17How was Urine Obtained? CLEAN CATCH Performed By: #### L 400.0001 ####[facility] [address] [place], [address] Vital Signs Date Time Vital Sign Value Performing Clinician Facility 11-05-2024 15:26-0400 Body mass index (BMI) [Ratio] 23.99 kg/m2 Lokesh Plummer APRN.TREATMENT TECHNICIAN Work Phone: [facility] 11-05-2024 15:26-040 Body temperature 99.1 [degF] Lokesh Plummer APRN.TREATMENT TECHNICIAN Work Phone: [facility] 11-05-2024 15:26-0400 Body weight 63.4 kg Lokesh Plummer APRN.TREATMENT TECHNICIAN Work Phone: [facility] 11-05-2024 15:26-0400 Diastolic blood pressure 62 mm[Hg] Lokesh Plummer APPLICATION SERVICES MANAGER.TREATMENT TECHNICIAN Work Phone: [facility] 11-05-2024 15:26-0400 Heart rate 74 /min Lokesh Plummer APPLICATION SERVICES MANAGER.TREATMENT TECHNICIAN Work Phone: [facility] 11-05-2024 15:26-0400 Respiratory rate 18 /min Lokesh Plummer APPLICATION SERVICES MANAGER.TREATMENT TECHNICIAN Work Phone: [facility] 11-05-2024 15:26-0400 SaO2% (BldA) [Mass fraction] 97 % Lokesh Plummer APPLICATION SERVICES MANAGER.TREATMENT TECHNICIAN Work Phone: [facility] 11-05-2024 15:26-0400 Systolic blood pressure 102 mm[Hg] Lokesh Plummer APPLICATION SERVICES MANAGER.TREATMENT TECHNICIAN Work Phone: [facility] 09-28-2024 11:13-0400 Body mass index (BMI) [Ratio] 24.37 kg/m2 Carole Podlogar APPLICATION SERVICES MANAGER.TREATMENT TECHNICIAN Work Phone: [facility] 09-28-2024 11:13-0400 Body weight 64.41 kg Carole Podlogar APPLICATION SERVICES MANAGER.TREATMENT TECHNICIAN Work Phone: [facility] 09-28-2024 11:13-0400 Diastolic blood pressure 68 mm[Hg] Carole Podlogar APPLICATION SERVICES MANAGER.TREATMENT TECHNICIAN Work Phone: [facility] 09-28-2024 11:13-0400 Heart rate 83 /min Carole Podlogar APPLICATION SERVICES MANAGER.TREATMENT TECHNICIAN Work Phone: [facility] 09-28-2024 11:13-0400 Respiratory rate 18 /min Carole Podlogar APPLICATION SERVICES MANAGER.TREATMENT TECHNICIAN Work Phone: [facility] 09-28-2024 11:13-0400 SaO2% (BldA) [Mass fraction] 94 % Carole Podlogar APPLICATION SERVICES MANAGER.TREATMENT TECHNICIAN Work Phone: [facility] 09-28-2024 11:13-0400 Systolic blood pressure 114 mm[Hg] Carole Podlogar APPLICATION SERVICES MANAGER.TREATMENT TECHNICIAN Work Phone: [facility] 09-21-2024 10:41-0400 Body mass index (BMI) [Ratio] 24.31 kg/m2 Carole Podlogar APPLICATION SERVICES MANAGER.TREATMENT TECHNICIAN Work Phone: [facility] 09-21-2024 10:41-0400 Body temperature 97.7 [degF] Carole Podlogar APPLICATION SERVICES MANAGER.TREATMENT TECHNICIAN Work Phone: [facility] 09-21-2024 10:41-0400 Body weight 64.23 kg Carole Podlogar APPLICATION SERVICES MANAGER.TREATMENT TECHNICIAN Work Phone: [facility] 09-21-2024 10:41-0400 Diastolic blood pressure 66 mm[Hg] Carole Podlogar APPLICATION SERVICES MANAGER.TREATMENT TECHNICIAN Work Phone: [facility] 09-21-2024 10:41-0400 Heart rate 86 /min Carole Podlogar APPLICATION SERVICES MANAGER.TREATMENT TECHNICIAN Work Phone: [facility] 09-21-2024 10:41-0400 Respiratory rate 16 /min Carole Podlogar APPLICATION SERVICES MANAGER.TREATMENT TECHNICIAN Work Phone: [facility] 09-21-2024 10:41-0400 SaO2% (BldA) [Mass fraction] 96 % Carole Podlogar APPLICATION SERVICES MANAGER.TREATMENT TECHNICIAN Work Phone: [facility] 09-21-2024 10:41-0400 Systolic blood pressure 96 mm[Hg] Carole Podlogar APPLICATION SERVICES MANAGER.TREATMENT TECHNICIAN Work Phone: [facility] 09-11-2024 11:14-0400 Body mass index (BMI) [Ratio] 24.71 kg/m2 Lokesh Plummer APPLICATION SERVICES MANAGER.TREATMENT TECHNICIAN Work Phone: [facility] 09-11-2024 11:14-0400 Body temperature 99.7 [degF] Lokesh Plummer APPLICATION SERVICES MANAGER.TREATMENT TECHNICIAN Work Phone: [facility] 09-11-2024 11:14-0400 Body weight 65.3 kg Lokesh Plummer APPLICATION SERVICES MANAGER.TREATMENT TECHNICIAN Work Phone: [facility] 09-11-2024 11:14-0400 Diastolic blood pressure 78 mm[Hg] Lokesh Plummer APPLICATION SERVICES MANAGER.TREATMENT TECHNICIAN Work Phone: [facility] 09-11-2024 11:14-0400 Heart rate 96 /min Lokesh Plummer APPLICATION SERVICES MANAGER.TREATMENT TECHNICIAN Work Phone: [facility] 09-11-2024 11:14-0400 Respiratory rate 18 /min Lokesh Plummer APPLICATION SERVICES MANAGER.TREATMENT TECHNICIAN Work Phone: [facility] 09-11-2024 11:14-0400 SaO2% (BldA) [Mass fraction] 97 % Lokesh Plummer APPLICATION SERVICES MANAGER.TREATMENT TECHNICIAN Work Phone: [facility] 09-11-2024 11:14-0400 Systolic blood pressure 122 mm[Hg] Lokesh Plummer APPLICATION SERVICES MANAGER.TREATMENT TECHNICIAN Work Phone: [facility] 11-17-2023 13:23-0400 Body mass index (BMI) [Ratio] 26.34 kg/m2 Carole Podlogar APPLICATION SERVICES MANAGER.TREATMENT TECHNICIAN Work Phone: [facility] 11-17-2023 13:23-0400 Body weight 69.6 kg Carole Podlogar APPLICATION SERVICES MANAGER.TREATMENT TECHNICIAN Work Phone: [facility] 11-17-2023 13:23-0400 Diastolic blood pressure 66 mm[Hg] Carole Podlogar APPLICATION SERVICES MANAGER.TREATMENT TECHNICIAN Work Phone: [facility] 11-17-2023 13:23-0400 Heart rate 83 /min Carole Podlogar APPLICATION SERVICES MANAGER.TREATMENT TECHNICIAN Work Phone: [facility] 11-17-2023 13:23-0400 Respiratory rate 18 /min Carole Podlogar APPLICATION SERVICES MANAGER.TREATMENT TECHNICIAN Work Phone: [facility] 11-17-2023 13:23-0400 SaO2% (BldA) [Mass fraction] 97 % Carole Podlogar APPLICATION SERVICES MANAGER.TREATMENT TECHNICIAN Work Phone: [facility] 11-17-2023 13:23-0400 Systolic blood pressure 104 mm[Hg] Carole Podlogar APPLICATION SERVICES MANAGER.TREATMENT TECHNICIAN Work Phone: [facility] 11-28-2022 09:03-0400 Body temperature 97.59 [degF] Lokesh Plummer APRN.TREATMENT TECHNICIAN Work Phone: [facility] 11-28-2022 09:03-0400 Body weight 68.77 kg Lokesh Plummer APRN.TREATMENT TECHNICIAN Work Phone: [facility] 11-28-2022 09:03-0400 Diastolic blood pressure 76 mm[Hg] Lokesh Plummer APRN.TREATMENT TECHNICIAN Work Phone: [facility] 11-28-2022 09:03-0400 Heart rate 77 /min Lokesh Plummer APRN.TREATMENT TECHNICIAN Work Phone: [facility] 11-28-2022 09:03-0400 Respiratory rate 20 /min Lokesh Plummer APRN.TREATMENT TECHNICIAN Work Phone: [facility] 11-28-2022 09:03-0400 SaO2% (BldA) [Mass fraction] 100 % Lokesh Plummer APRN.TREATMENT TECHNICIAN Work Phone: [facility] 11-28-2022 09:03-0400 Systolic blood pressure 118 mm[Hg] Lokesh Plummer APRN.TREATMENT TECHNICIAN Work Phone: [facility] 04-16-2022 17:20-0500 Body height 162.6 cm ISAIAH LONG MD [facility] 04-16-2022 17:20-0500 Body temperature 96.8 [degF] ISAIAH LONG MD [facility] 04-16-2022 17:20-0500 Body weight 71 kg ISAIAH LONG MD [facility] 04-16-2022 17:20-0500 Diastolic Blood Pressure Non-Invasive 62 1 ISAIAH LONG MD [facility] 04-16-2022 17:20-0500 Heart rate 65 /min ISAIAH LONG MD [facility] 04-16-2022 17:20-0500 Respiratory rate 18 /min ISAIAH LONG MD [facility] 04-16-2022 17:20-0500 Systolic Blood Pressure Non-Invasive 94 1 ISAIAH LONG MD [facility] 11-22-2021 09:44-0400 Body temperature 97.5 [degF] Lokesh Plummer APRN.TREATMENT TECHNICIAN Work Phone: [facility] 11-22-2021 09:44-0400 Body weight 71.49 kg Lokesh Plummer APRN.TREATMENT TECHNICIAN Work Phone: [facility] 11-22-2021 09:44-0400 Diastolic blood pressure 76 mm[Hg] Lokesh Plummer APRN.TREATMENT TECHNICIAN Work Phone: [facility] 11-22-2021 09:44-0400 Heart rate 74 /min Lokesh Plummer APRN.TREATMENT TECHNICIAN Work Phone: [facility] 11-22-2021 09:44-0400 Respiratory rate 16 /min Lokesh Plummer APRN.TREATMENT TECHNICIAN Work Phone: [facility] 11-22-2021 09:44-0400 SaO2% (BldA) [Mass fraction] 100 % Lokesh Plummer APRN.TREATMENT TECHNICIAN Work Phone: [facility] 11-22-2021 09:44-0400 Systolic blood pressure 120 mm[Hg] Lokesh Plummer APRN.TREATMENT TECHNICIAN Work Phone: [facility] Encounters Encounter Date Encounter Type Care Provider Facility Start: 02-10-2025 End: 02-10-2025 ambulatory CAROLE PODLOGAR Facility:[facility] Start: 02-09-2025 ambulatory CAROLE PODLOGAR Facility :[facility] Start: 02-01-2025 ambulatory CAROLE PODLOGAR Facility :[facility] Start: 02-01-2025 End: 02-01-2025 ambulatory CAROLE PODLOGAR Facility:[facility] Start: 11-05-2024 End: 11-05-2024 Patient encounter procedure Lokesh Plummer APRN.TREATMENT TECHNICIAN Work Phone: [facility] [place] Comment on above: Acute cough (Primary Dx); URI, acute; Acute exacerbation of chronic obstructive pulmonary disease (HCC) Start: 11-05-2024 End: 11-05-2024 Subsequent hospital visit by physician Radha [facility] [place] Work Phone: Radiology Comment on above: Acute cough [R05.1] Start: 11-05-2024 End: 11-05-2024 ambulatory TARAH ROOT Facility:[facility] Start: 09-28-2024 End: 09-28-2024 Patient encounter procedure Carole Podlogmaria del carmen DAWSON.TREATMENT TECHNICIAN Work Phone: [facility] [place] Comment on above: Right hip pain (Prim raina Dx); Foot drop, right foot Start: 09-28-2024 End: 09-28-2024 ambulatory CAROLE PODLOGAR Facility:[facility] Start: 09-24-2024 End: 09-24-2024 Follow-up encounter Marina Jenkins MA [facility] [place] Comment on above: Results Start: 09-21-2024 End: 09-21-2024 Patient encounter procedure Carole Silvermanlogmaria del carmen DAWSON.TREATMENT TECHNICIAN Work Phone: Family [facility] [place] Comment on above: UTI symptoms (Primar y Dx); Dupuytren's contracture of left hand; Stage 3b chronic kidney disease (HCC) Start: 09-21-2024 End: 09-21-2024 ambulatory CAROLE PODLOGAR Facility:[facility] Start: 09-13-2024 End: 11-13-2024 Follow-up encounter Brianna Ram APRN.TREATMENT TECHNICIAN Work Phone: [facility] Start: 09-11-2024 End: 09-11-2024 Patient encounter procedure Lokesh Plummer APRN.TREATMENT TECHNICIAN Work Phone: [facility] Comment on above: Urinary frequency (P rimary Dx); Acute cystitis without hematuria Start: 09-11-2024 End: 09-11-2024 ambulatory TARAH ROOT Facility:[facility] Start: 03-24-2024 End: 03-29-2024 ambulatory Tarah Root MD Work Phone: Internal [facility] Start: 01-27-2024 End: 01-27-2024 Refill Tarah Root MD Work Phone: [facility] [place] Comment on above: Refill Request Start: 11-18-2023 Orders Only Carole Partida APPLICATION SERVICES MANAGER.TREATMENT TECHNICIAN Work Phone: [facility] [place] Comment on above: Tobacco use (Primary Dx) Start: 11-17-2023 End: 11-17-2023 Patient encounter procedure Carole Partida APPLICATION SERVICES MANAGER.TREATMENT TECHNICIAN Work Phone: [facility] [place] Comment on above: Mixed hyperlipidemia (Primary Dx); Stage 3b chronic kidney disease (HCC); Tobacco use; Hx of colonic polyps Start: 03-10-2023 Refill Tarah Root MD Work Phone: [facility] Comment on above: Refill Request Start: 11-30-2022 Telephone encounter Brianna escoto APPLICATION SERVICES MANAGER.TREATMENT TECHNICIAN Work Phone: [facility] Comment on above: Results Start: 11-28-2022 End: 11-28-2022 Patient encounter procedure Lokesh Ovidio APPLICATION SERVICES MANAGER.TREATMENT TECHNICIAN Work Phone: [facility] Comment on above: Burning with urinati on (Primary Dx) Start: 09-04-2022 Telephone encounter Carole naranjo APPLICATION SERVICES MANAGER.TREATMENT TECHNICIAN Work Phone: [facility] [place] Comment on above: Results Start: 08-27-2022 End: 08-27-2022 Subsequent hospital visit by physician Radha [facility] [place] Work Phone: Radiology Comment on above: Left wrist pain [M25 .532] Start: 08-23-2022 Refill Tarah Root MD Work Phone: Internal [facility] Comment on above: Refill Request Start: 05-15-2022 ambulatory Tarah Root MD Work Phone: Internal [facility] Start: 05-08-2022 Refill Tarah Root MD Work Phone: [facility] Comment on above: Refill Request Start: 04-16-2022 End: 04-16-2022 Emergency department patient visit ISAIAH LONG MD Facility:[facility] Start: 04-16-2022 End: 04-16-2022 Emergency department patient visit ISAIAH LONG MD [facility] Start: 11-24-2021 Telephone encounter Pam Sandra APRN.TREATMENT TECHNICIAN Work Phone: [facility] Comment on above: Results Start: 11-22-2021 Telephone encounter Lokesh Plummer APRN.TREATMENT TECHNICIAN Work Phone: [facility] Comment on above: Insurance Authorizat ion (Lidocaine 5% patches) Start: 11-22-2021 End: 11-22-2021 Subsequent hospital visit by physician Xr [facility] [place] Work Phone: Radiology Comment on above: Acute right-sided ba ck pain, unspecified back location [M54.9] Start: 11-22-2021 End: 11-22-2021 Patient encounter procedure Lokesh Plummer APRN.TREATMENT TECHNICIAN Work Phone: [facility] Comment on above: Acute right-sided ba ck pain, unspecified back location (Primary Dx) Start: 07-27-2021 Telephone encounter Carole naranjo APRN.TREATMENT TECHNICIAN [facility] Comment on above: Results Start: 07-26-2021 Telephone encounter Rajesh Root MD Work Phone: [facility] [place] Comment on above: Results Start: 01-17-2021 End: 01-17-2021 Subsequent hospital visit by physician Xr [facility] [place] Work Phone: Radiology Comment on above: Acute pain of left k nee [M25.562] Start: 10-14-2018 Patient encounter procedure ADDI UREÑA Facility:[facility] Start: 04-20-2018 Patient encounter procedure ADDI UREÑA Facility:[facility] Start: 03-11-2018 Patient encounter procedure ADDI UREÑA Facility:[facility] Start: 08-19-2017 Ambulatory No [facility] Facility:[facility] Start: 07-06-2017 End: 07-06-2017 Emergency department patient visit No [facility] Facility:[facility] Start: 07-01-2017 End: 07-01-2017 Emergency department patient visit No [facility] Facility:[facility] Start: 12-30-2016 End: 12-30-2016 Emergency department patient visit No [facility] Facility:[facility] Procedures Date Procedure Procedure Detail Performing Clinician Start: 11-05-2024 Radiologic exam ches t 2 views Lokesh Plummer APRN.TREATMENT TECHNICIAN Work Phone: Start: 09-21-2024 Urnls dip stick/tabl et rgnt auto w/o microscopy Carole Silvermanlogmaria del carmen APPLICATION SERVICES MANAGER.TREATMENT TECHNICIAN Work Phone: Start: 09-11-2024 Urnls dip stick/tabl et rgnt auto w/o microscopy Lokesh Plummer APRN.TREATMENT TECHNICIAN Work Phone: Start: 03-24-2024 Lipid 1996 panel - S yulissa or Plasma Tarah Root MD Work Phone: Start: 11-28-2022 Urnls dip stick/tabl et rgnt auto w/o microscopy Lokesh Plummer APRN.TREATMENT TECHNICIAN Work Phone: Start: 09-03-2022 Lipid 1996 panel - S yulissa or Plasma Tarah Root MD Work Phone: Start: 08-27-2022 Radex forearm 2 views J ulnallely Podlogar APPLICATION SERVICES MANAGER.TREATMENT TECHNICIAN Work Phone: Start: 11-22-2021 Radex hip unilateral with pelvis 2-3 views Lokesh Plummer APPLICATION SERVICES MANAGER.TREATMENT TECHNICIAN Work Phone: Start: 11-22-2021 Urnls dip stick/tabl et rgnt auto w/o microscopy [facility] Start: 01-17-2021 Radiologic exam knee complete 4/more views Carole Podlogar APPLICATION SERVICES MANAGER.TREATMENT TECHNICIAN Work Phone: Start: 04-23-2019 Mammography Carole naranjo APPLICATION SERVICES MANAGER.BLAIR Work Phone: Start: 04-17-2016 Colonoscopy Carole naranjo APRN.BLAIR Work Phone: Start: 04-03-2016 H/O: surgery S/p nephrectomy Carole lentz APRN.BLAIR Work Phone: Plan of Treatment Date Care Activity Detail Author Start: 02-11-2035 RSV Vaccine (1 - 1-d ose 75+ series) RSV Vaccine (1 - 1-dose 75+ series) [facility] Start: 03-24-2029 Lipid panel Lipid Screening [facility] Start: 09-22-2027 Diabetes Screening Diabetes Screenin g [facility] Start: 09-04-2027 Lipid 1996 panel - Serum or Plasma Lipid Screening [facility] Start: 09-04-2027 Lipid panel Lipid Screening [facility] Start: 09-04-2027 LIPID SCREEN LIPID SCREEN [facility] Start: 03-24-2027 Diabetes Screening Diabetes Screenin g [facility] Start: 03-11-2026 [facility] Start[facility] 01-17-2026 LIPID SCREEN LIPID SCREEN [facility] Start: 09-28-2025 Annual PCP Team Post Commander bobo Disease Visit Annual PCP Team Chronic Disease Visit [facility] Start: 09-21-2025 Annual PCP Team Post Commander bobo Disease Visit Annual PCP Team Chronic Disease Visit [facility] Start: 09-21-2025 Complete blood count Hemoglobin/Jeffrey tocrit [facility] Start: 09-21-2025 Creatinine measurement Serum Creatin ine [facility] Start: 09-03-2025 DIABETES SCREEN DIABETES SCREEN [facility] Start: 09-03-2025 Diabetes Screening Diabetes Screenin g [facility] Start: 03-24-2025 Creatinine measurement Serum Creatin ine [facility] Start: 12-13-2024 Influenza vaccination Influenza Vacc ine (#1) [facility] Start: 11-16-2024 Annual PCP Team Post Commander bobo Disease Visit Annual PCP Team Chronic Disease Visit [facility] Start: 11-01-2024 End: 11-01-2024 Patient encounter procedure 11/01/2024 9:15 AM EDT Office Visit Orthopaedics [address] [place] [address] Eber Bell MD [address] [place] [address] Dx: Dupuytren's contracture of left hand [M72.0] Orthopaedics Comment on above: Dx: Dupuytren's cont racture of left hand [M72.0] Start: 09-29-2024 End: 09-29-2024 Patient encounter procedure 09/29/2024 10:00 AM EDT Appointment Radiology [address] [place] [address] Right hip pain [M25.551] Radiology Comment on above: Right hip pain [M25. 551] Start: 09-28-2024 End: 09-28-2024 Patient encounter procedure 09/28/2024 11:20 AM EDT Office Visit Family [facility] [place] [address] [facility] [place] [address] PodlogCarole joyce APRN.TREATMENT TECHNICIAN [address] [place] [address] Back pain Family [facility] [place] Comment on above: Back pain Start: 07-26-2024 DIABETES SCREEN DIABETES SCREEN [facility] Start: 06-07-2024 PAP TESTING PAP TESTING [facility] Start: 05-19-2024 End: 05-19-2024 Patient encounter procedure 05/19/2024 2:20 PM EST Office Visit Family [facility] [address] [place] [address] Tarah Root MD [address] [place] [address] 6 month follow up Family [facility]anna [facility] Comment on above: 6 month follow up Start: 03-11-2024 Creatinine measurement Serum Creatin ine [facility] Start: 03-08-2024 End: 06-07-2024 Comprehensive metabolic 2000 panel - Serum or Plasma COMPREHENSIVE METABOLIC PANEL Lab Routine Mixed hyperlipidemia Expected: 03/08/2024, Expires: 06/07/2024 [facility] Comment on above: Expected: 03/08/2024 , Expires: 06/07/2024 Start: 03-08-2024 End: 06-07-2024 Lipid 1996 panel - Serum or Plasma LIPID PANEL BASIC Lab Routine Mixed hyperlipidemia Expected: 03/08/2024, Expires: 06/07/2024 [facility] Work Phone: Comment on above: Expected: 03/08/2024 , Expires: 06/07/2024 Start: 12-14-2023 Covid-19 Vaccine () Covid-19 Vaccine () [facility] Start: 12-14-2023 Influenza vaccination Influenza Vacc ine (#1) [facility] Start: 11-17-2023 End: 02-16-2024 Hematocrit [Volume Fraction] of Blood HEMATOCRIT Lab Routine Stage 3b chronic kidney disease (HCC) Expected: 11/17/2023, Expires: 02/16/2024 [facility] Comment on above: Expected: 11/17/2023 , Expires: 02/16/2024 Start: 11-17-2023 End: 02-16-2024 Hemoglobin [Mass/volume] in Blood HEMOGLOBIN Lab Routine Stage 3b chronic kidney disease (HCC) Expected: 11/17/2023, Expires: 02/16/2024 [facility] Comment on above: Expected: 11/17/2023 , Expires: 02/16/2024 Start: 09-04-2023 Complete blood count Hemoglobin/Jeffrey tocrit [facility] Start: 09-04-2023 HEMOGLOBIN/HEMATOCRIT HEMOGLOBIN/HEM ATOCRIT [facility] Start: 09-04-2023 SERUM CREATININE SERUM CREATININE [facility] Start: 08-28-2023 ANNUAL PCP TEAM RESOURCING CONSULTANT BOBO DISEASE VISIT ANNUAL PCP TEAM CHRONIC DISEASE VISIT [facility] Start: 12-13-2022 Covid-19 Vaccine () Covid-19 Vaccine () [facility] Start: 12-13-2022 Influenza vaccination [facility] Start: 07-26-2022 HEMOGLOBIN/HEMATOCRIT HEMOGLOBIN/HEM ATOCRIT [facility] Start: 07-26-2022 SERUM CREATININE SERUM CREATININE [facility] Start: 07-24-2022 ANNUAL PCP TEAM RESOURCING CONSULTANT BOBO DISEASE VISIT ANNUAL PCP TEAM CHRONIC DISEASE VISIT [facility] Start: 06-07-2022 Screening for malign ant neoplasm of cervix Cervical Cancer Screening [facility] Start: 01-17-2022 Urine microalbumin profile DTAP,TDAP,TD (1 - Tdap) [facility] Comment on above: Postponed from 02/11 (Declined at this time) Start: 12-13-2021 Influenza vaccination INFLUENZA (#1) [facility] Start: 10-26-2021 End: 12-26-2021 VITAMIN D 25 HYDROXY VITAMIN D 25 HYDROXY Lab Routine Vitamin D deficiency Expected: 10/26/2021, Expires: 12/26/2021 [facility] Work Phone: Comment on above: Expected: 10/26/2021 , Expires: 12/26/2021 Start: 09-11-2021 COVID-19 VACCINE (4 - Booster for Moderna series) COVID-19 VACCINE (4 - Booster for Moderna series) [facility] Start: 07-09-2021 COVID-19 VACCINE (4 - Booster for Moderna series) COVID-19 VACCINE (4 - Booster for Moderna series) [facility] Start: 04-17-2021 Colonoscopy COLONOSCOPY [facility] Start: 04-17-2021 COLORECTAL CANCER SCREENING COLORECTAL CANCER SCREENING [facility] Start: 04-17-2021 Screening for malign ant neoplasm of colon [facility] Start: 04-23-2020 Mammography [facility] Start: 04-23-2020 Screening for malign ant neoplasm of breast Mammogram Screening [facility] Start: 03-12-2020 PNEUMOCOCCAL (2 - PCV) PNEUMOCOCCAL (2 - PCV) [facility] Start: 2020 RSV Vaccine (1 - 1-d ose 60+ series) RSV Vaccine (1 - 1-dose 60+ series) [facility] Start: 03-14-2018 Medicare Annual Wellness Visit Medicare Annual Wellness Visit [facility] Start: 02-11-2010 SHINGRIX VACCINE (1 of 2) SHINGRIX VACCINE (1 of 2) [facility] Start: 02-11-2005 COLOGUARD (FIT-DNA) COLOGUARD (FIT-D NA) [facility] Start: 02-11-[address] COLONOGRAPHY [facility] Start: 02-11-2005 FECAL OCCULT BLOOD FECAL OCCULT BLOO D [facility] Start: 02-11-2005 Screening for malign ant neoplasm of colon [facility] Start: 02-11-2005 [facility] Start: 02-11-1990 HPV TESTING HPV TESTING [facility] Start: 02-11-1979 Urine microalbumin profile [facility] Bacteria identified in Urine by Culture URINE CULTURE Microbiology Routine Acute right-sided back pain, unspecified back location Ordered: 11/22/2021 [facility] Work Phone: Comment on above: Ordered: 11/22/2021 Bacteria identified in Urine by Culture URINE CULTURE Microbiology Routine Burning with urination 11/28/2022 9:27 AM EDT [facility] Work Phone: Bacteria identified in Urine by Culture BACTERIAL CULTURE, URINE Microbiology Routine Urinary frequency Ordered: 09/11/2024 [facility] Work Phone: Comment on above: Ordered: 09/11/2024 Bacteria identified in Urine by Culture BACTERIAL CULTURE, URINE Microbiology Routine UTI symptoms 09/21/2024 11:25 AM EDT [facility] Work Phone: COVID & INFLUENZA A/ B & RSV PCR, ROUTINE COVID & INFLUENZA A/B & RSV PCR, ROUTINE Microbiology Routine URI, acute Ordered: 11/05/2024 [facility] Work Phone: Comment on above: Ordered: 11/05/2024 End: 04-23-2025 DBT Breast - bilateral screening LEONOR SCREENING W JAVI Radiology Routine Encounter for screening mammogram for breast cancer 1 Occurrences starting 03/24/2024 until 04/23/2025 [facility] Work Phone: Comment on above: 1 Occurrences starti ng 03/24/2024 until 04/23/2025 End: 06-14-2023 LEONOR SCREENING LEONOR SCREENING Radiology Routine Encounter for screening mammogram for breast cancer 1 Occurrences starting 05/15/2022 until 06/14/2023 [facility] Work Phone: Comment on above: 1 Occurrences starti ng 05/15/2022 until 06/14/2023 UA DIP, URINE (POC) UA DIP, URIN E (POC) Lab Routine Acute right-sided back pain, unspecified back location Ordered: 11/22/2021 [facility] Work Phone: Comment on above: Ordered: 11/22/2021 End: 10-28-2025 XR Pelvis and Hip - right AP and Lateral frog XR HIP GENERAL 3V PELV/AP/LAT RIGHT Radiology Routine Right hip pain 1 Occurrences starting 09/28/2024 until 10/28/2025 [facility] Work Phone: Comment on above: 1 Occurrences starti ng 09/28/2024 until 10/28/2025 [facility] Immunizations Immunization Date Immunization Notes Care Provider Armin turner 01-07-2024 influenza virus vaccine, unspecified formulation Lokesh Plummer APPLICATION SERVICES MANAGER.TREATMENT TECHNICIAN Work Phone: [facility] 03-11-2023 COVID-19 vaccine, ag e 12+ yr, season (PFIZER-BIONTECH) Carole Podlogar APPLICATION SERVICES MANAGER.TREATMENT TECHNICIAN Work Phone: [facility] 03-11-2023 influenza, injectabl e, quadrivalent, contains preservative Carole Podlogar APPLICATION SERVICES MANAGER.TREATMENT TECHNICIAN Work Phone: [facility] 03-11-2023 influenza virus vaccine, unspecified formulation Carole Podlogar APPLICATION SERVICES MANAGER.TREATMENT TECHNICIAN Work Phone: [facility] 08-27-2022 COVID-19 vaccine, ag e 12+ yr, bivalent (PFIZER-BIONTECH) Carole Podlogar APPLICATION SERVICES MANAGER.TREATMENT TECHNICIAN Work Phone: [facility] 08-27-2022 pneumococcal (PCV20) vaccine, 20 valent (PREVNAR 20) Carole Podlogar APPLICATION SERVICES MANAGER.TREATMENT TECHNICIAN Work Phone: [facility] 01-17-2021 influenza, injectabl e, quadrivalent, contains preservative Carole Podlogar APPLICATION SERVICES MANAGER.TREATMENT TECHNICIAN Work Phone: [facility] 01-17-2021 influenza virus vaccine, unspecified formulation Tarah Root MD Work Phone: [facility] 09-04-2020 COVID-19 vaccine, fu ll dose (MODERNA) Carole Podlogar APPLICATION SERVICES MANAGER.TREATMENT TECHNICIAN Work Phone: [facility] 08-03-2020 COVID-19 vaccine, fu ll dose (MODERNA) Carole Podlogar APPLICATION SERVICES MANAGER.TREATMENT TECHNICIAN Work Phone: [facility] 03-12-2019 influenza, injectabl e, quadrivalent, contains preservative Carole Podlogar APPLICATION SERVICES MANAGER.TREATMENT TECHNICIAN Work Phone: [facility] 03-12-2019 pneumococcal polysaccharide vaccine, 23 valent Carole Podlogar APPLICATION SERVICES MANAGER.TREATMENT TECHNICIAN Work Phone: [facility] 03-01-2009 novel [id number], preservative-free, injectable Carole Podlogar APPLICATION SERVICES MANAGER.TREATMENT TECHNICIAN Work Phone: [facility] Work Phone: Payers Date Payer Category Payer Medicare [id number] 2018 Medicare MEDICARE MEDICAR E A AND B [id number] 2018-Present [phone] [address] [address] [place] [address] Medicare [id number] 2018 Medicare [id number] 2018 Medicare [id number] 2016 Unknown [id number] 1960 Unknown [id number] 1960 Unknown [id number] 1960 Unknown [id number] 1960 Unknown [id number] Social History Date Type Detail Facility Start: 10-11-2014 End: 11-22-2021 Tobacco smoking status NHIS Smokes tobacco daily [facility] Work Phone: Start: 10-11-2014 End: 08-27-2022 Cigarettes smoked current (pack per day) - Reported 0.5 [facility] Start: 10-11-2014 End: 11-22-2021 Tobacco use and exposure Smokeless tobacco non-user [facility] Work Phone: Start: 07-24-2021 End: 09-11-2024 Alcohol intake Current non-drinker of alcohol (finding) [facility] Start: 11-05-2019 History SDOH Alcohol Frequency 1 [facility] Start: 11-05-2019 History SDOH Social Connections Phone 3 [facility] Start: 11-05-2019 History SDOH Physica l Activity DPW 2 [facility] Start: 11-05-2019 Education 9 [facility] Start: 03-12-2019 End: 11-22-2021 Tobacco Comment failed chantix [facility] Start: 1960 Sex Assigned At Not on file [facility] Start: 12-18-2020 End: 11-22-2021 Exposure to SARS-CoV-2 (event) Not sure [facility] History of tobacco use Cigarette Smoker [facility] Tobacco smoking status No Smokin g Status Entered [facility] Sex Assigned At Female [facility] Start: 11-05-2019 End: 08-27-2022 Social connection and isolation panel [facility] Frequency of Social Gatherings with Friends and Family Not on file [facility] How often to you hav e a drink containing alcohol? Never [facility] How hard is it for y ou to pay for the very basics like food, housing, medical care, and heating Very hard [facility] (I/We) worried felipe er (my/our) food would run out before (I/we) got money to buy more. Never true [facility] In the past 12 month s, was there a time when you were not able to pay the mortgage or rent on time? No [facility] Functional Status Date Assessment Result Facility 02-01-2016 Are you deaf, or do you have serious difficulty hearing No 02/01/2016 8:23 AM EDT Lillian Flor, DO No [facility] Work Phone: 02-01-2016 Are you blind, or do you have serious difficulty seeing, even when wearing glasses No 02/01/2016 8:23 AM EDT Lillian Flor, DO No [facility] 02-01-2016 Do you have serious difficulty walking or climbing stairs No 02/01/2016 8:23 AM EDT Lillian Flor, DO No [facility] 02-01-2016 Do you have difficul ty dressing or bathing No 02/01/2016 8:23 AM EDT Lillian Flor, DO No [facility] 02-01-2016 Because of a physica l, mental, or emotional condition, do you have difficulty doing errands alone such as visiting a physician's office or shopping Yes 02/01/2016 8:23 AM EDT Lillian Flor, DO Yes [facility] Mental Status Date Assessment Result Facility 02-01-2016 Because of a physica l, mental, or emotional condition, do you have serious difficulty concentrating, remembering, or making decisions No 02/01/2016 8:23 AM EDT Lillian Flor, DO No [facility] Clinical Notes 10-11-2014 to 02-09-2025 Addendum Note - Lokesh Plummer APRN.[facility] - 11/05/2024 5:45 PM EDTAddendum Note - Lokesh Plummer APRN.[facility] - 11/05/2024 5:45 PM Lokesh Pemberton APRN.[facility] - 11/05/2024 4:18 PM EDT Note Date & Type Note Facility 02-09-2025 Note HNO ID: [id number] Author: KB ZIMMER RT(R) Service: ? Author Type: Technologist Type: Progress Notes Filed: 02/09/2025 07:04 Note Text: Radiology Service Progress Note PATIENT NAME: Terry Joe DATE OF SERVICE: February 09, 2025 TIME: 7:04 AM PATIENT IDENTITY VERIFICATION COMPLETED USING TWO (2) IDENTIFIERS: Name and Date of confirmed by patient verbally. FALL SCREENING: Has the patient had 2 falls in the last year or 1 fall with injury or currently using an Ambulatory Assistive Device (Walker, Cane, Wheelchair, Crutches, etc.)? No PATIENT GENDER DATA: Assigned female at . status: : No status: NO. PATIENT RELEVANT IMPLANT DATA REVIEWED: Yes PATIENT PRESENTS WITH AN IMPLANTABLE OR ATTACHED PANTRY STEWARD/STEWARDESS: No RADIOLOGY DEPARTMENT: MR; Exam(s) Completed: Lower MSK: Hip, right . Anesthesia: No. Aromatherapy Administered: No PERIPHERAL IV DATA: Not applicable SIGNED BY: RT Pearl(R) February 09, 2025 7:04 AM [facility] 02-01-2025 Note HNO ID: [id number] Author: HERBERT SHARP Tech Service: ? Author Type: Weapons System Instrument Mechanic Type: Progress Notes Filed: 02/01/2025 15:56 Note Text: Radiology Service Progress Note PATIENT NAME: Terry Joe DATE OF SERVICE: February 01, 2025 TIME: 3:55 PM PATIENT IDENTITY VERIFICATION COMPLETED USING TWO (2) IDENTIFIERS: Name and Date of confirmed by patient verbally. FALL SCREENING: Has the patient had 2 falls in the last year or 1 fall with injury or currently using an Ambulatory Assistive Device (Walker, Cane, Wheelchair, Crutches, etc.)? No PATIENT GENDER DATA: Assigned female at . status: : No status: NO. PATIENT RELEVANT IMPLANT DATA REVIEWED: Yes PATIENT PRESENTS WITH AN IMPLANTABLE OR ATTACHED PANTRY STEWARD/STEWARDESS: No RADIOLOGY DEPARTMENT: General X-ray: Exam(s) Completed: Pelvis X-Ray: Pelvis with Hip Right Lower Extremity X-Ray(s): Foot, Right PERIPHERAL IV DATA: Not applicable SIGNED BY: Mayelin Stokes February 01, 2025 3:55 PM [facility] 02-01-2025 Note HNO ID: [id number] Author: CAROLE PARTIDA APRN.TREATMENT TECHNICIAN Service: ? Author Type: Nurse Practitioner Type: Progress Notes Filed: 02/01/2025 12:09 Note Text: 02/01/2025 Patient presents with: Pain (foot): Right foot x few weeks Recording using [employer] software for draft documentation of the visit was discussed with the patient/authorized promotions representative; all questions welcomed and answered. Patient/authorized promotions representative agreed to proceed SUBJECTIVE: This is a 64 year old that is here today for Above Complaints. Terry is a 64-year-old female with a history of foot drop, presenting with right foot pain and ecchymosis. Right Foot Pain and Ecchymosis: - Reports chronic issues with an ingrown toenail on the right foot. - Recent exacerbation with the toenail busting up, leading to ecchymosis and pain. - Denies any known trauma or injury to the foot. - Ecchymosis is described as purple and extends from the toe upwards. - Pain is described as real tender and is aggravated by ambulation. - Applying lotion to the affected area; denies signs of infection. - Denies any history of leg aching. - Reports feeling really cold at times. Foot Drop: - History of foot drop following a hysterectomy at [facility] nearly 20 years ago. - Surgery reportedly lasted 10 hours, during which Terry was in [facility] for an extended period. - Postoperatively, Terry experienced inability to feel or move the right leg, leading to a fall in the hospital. - Required a brace from [employer] and physical therapy three times a week to regain ambulation. - Reports persistent numbness in the top of the right foot and big toe. - Describes ongoing difficulty with ambulation, stating, I still don't walk right, I mean, I could be walking and I'll fall down. - Denies any known trauma or injury to the foot. Hysterectomy Complications: - Hysterectomy complicated by ureteral injury, requiring reconstruction by Dr. Ureña, a floor finisher. 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 - Required two catheters postoperatively due to ureteral injury. - Describes the postoperative period as horrible, with significant pain, fever, and blood loss. - Reports a prolonged recovery period, stating, It took me 7 months to get to walking again after that surgery. Tobacco Use: - Current smoker. 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 Manuel Central serous chorioretinopathy of right eye [facility]reo[facility]retinal [facility] Cervical cancer ([facility]) 2007 CKD (chronic kidney disease) stage 3, GFR 30-59 ml/min (HCC) Degenerative cervical disc Depression Emphysema (subcutaneous) (surgical) resulting from a procedure Foot drop, right H. pylori infection 04/2016-treated Hyperlipidemia Malignant neoplasm of left ureter (HCC) Single kidney Stricture of ureter Tobacco use ALLERGIES Bactrim [Sulfamethoxazole-Trimethoprim], Macrobid [Nitrofurantoin Monohyd/M-Cryst], and Penicillins MEDICATIONS Current Outpatient Medications Medication Sig atorvastatin (LIPITOR) 40 mg tablet Take 1 tablet by mouth daily at bedtime. For cholesterol. No current facility-administered medications for this visit. Medications and allergies reviewed by this provider. SOCIAL HISTORY SOCIAL HISTORY[1] REVIEW OF SYSTEMS All other reviewed and negative other than HPI. OBJECTIVE: BP 118/70 Pulse 80 Temp 36.5 ?C (97.7 ?F) Resp 18 Wt 63.1 kg (139 lb 3.2 oz) SpO2 96% BMI 23.89 kg/m? . Vital signs reviewed by this provider. GENERAL: NAD, alert and oriented. RIGHT FOOT: No obvious deformity. TTP nail fold great toe without erythema, drainage or excessive warmth. Small amount of ecchymosis medial 1 st metatarsal. 1+ pedal pulse with cap refill WNL. Left pedal pulse 2+ DTaP,Tdap,Td Vaccine(1 - Tdap) Never done Shingrix Vaccine(1 of 2) Never done Medicare Annual Wellness Visit Never done Mammogram Screening due on 04/23/2020 Colorectal Cancer Screening due on 04/17/2021 Cervical Cancer Screening due on 06/07/2022 Influenza Vaccine(1) due on 12/13/2024 Covid-19 Vaccine(2024- season) due on 12/13/2024 Serum Creatinine due on 09/21/2025 Hemoglobin/Hematocrit due on 09/21/2025 Annual PCP Team Chronic Disease Visit due on 09/28/2025 Diabetes Screening due on 09/22/2027 Lipid Screening due on 03/24/2029 RSV Vaccine(1 - 1-dose 75+ series) due on 02/11/2035 Hepatitis C Screening Completed HIV Screening Completed Pneumococcal Vaccine: 50+ Completed 1. Foot pain, right (M79.671) 2. Decreased pedal pulses (R09.89) 3. Ingrown nail of great toe of right foot (L60.0) - Chronic right foot drop and recurrent ingrown toenail; currently with acute right foot pain, ecchymosis, and tenderness without clear trauma. - Decreased pedal pulses on exam; patient is a smoker, which may contribute to circu (more content not included)... [facility] 11-05-2024 Note SARS-COV-2 (AGENT OF COVID-19) RNA: Not detected INFLUENZA A RNA: Not detected INFLUENZA B RNA: Not detected RESPIRATORY SYNCYTIAL VIRUS (RSV) RNA: Not detected [facility] Comment on above: Performed By: #### [id number] ####[facility] LABCLIA [id number] [address] OF [facility] 11-05-2024 Note Addended by: LOKESH PLUMMER on: 11/05/2024 05:45 PM Modules accepted: Orders [facility] 11-05-2024 Miscellaneous Notes Addended by: LOKESH PLUMMER on: 11/05/2024 05:45 PM Modules accepted: Orders documented in this encounter [facility] 11-05-2024 Note HNO ID: [id number] Author: LOKESH PLUMMER APRN.BLAIR Service: ? Author Type: Nurse Practitioner Type: Progress Notes Filed: 11/05/2024 16:18 Note Text: [facility] Subjective Terry Joe is a 64 year old female. Patient presents with: Cough: Chest congestion, runny nose x6 days HPI Cough and Chest Congestion: - Cough and chest congestion x6 days. - Sore throat, rhinorrhea, sneezing, and wheezing. - Wheezing noted before severe coughing episodes. - Denies odynophagia. - Fatigue noted yesterday, described as just couldn't hardly go. - Denies taking any medications for symptoms. - Grandson had similar symptoms; chest x-ray performed, but no diagnosis given. Dyspnea: - Dyspnea noted, especially when unable to expectorate sputum. - Dyspnea exacerbated by physical activity. COPD: - Previous diagnosis of COPD, but Dr. Root reportedly stated she does not have it. - Smoker, but has reduced smoking since onset of current symptoms. Review of Systems Constitutional: (+) fatigue Ears/Nose/Mouth/Throat: (+) sore throat, (+) rhinorrhea, (+) sneezing, (-) odynophagia Respiratory: (+) cough, (+) chest congestion, (+) exertional dyspnea, (+) wheezing Objective BP 102/62 Pulse 74 Temp 37.3 ?C (99.1 ?F) Resp 18 Wt 63.4 kg (139 lb 12.4 oz) SpO2 97% BMI 23.99 kg/m? Physical Exam General: No acute distress. HEENT: Ears and throat normal. CV: Normal heart sounds. Resp: Left lower lobe wheezing. { 1. Acute cough (R05.1) 2. URI, acute (J06.9) 3. Acute exacerbation of chronic obstructive pulmonary disease (HCC) (J44.1) - Acute cough, rhinorrhea, sneezing, and sore throat for 6 days; increased fatigue and mild dyspnea on exertion; left lower lobe wheezing on exam. - Chest X-ray negative for pneumonia. - Start doxycycline BID for 7 days. - Start steroids. - Viral testing for COVID, influenza A/B, and RSV offered. - Educated patient on antibiotic use. and Recording using [employer] software for draft documentation of the visit was discussed with the patient/authorized promotions representative; all questions welcomed and answered. Patient/authorized promotions representative agreed to proceed MDM Procedures [facility] 11-05-2024 History of Presen t illness Narrative [facility] Subjective Terry Joe is a 64 year old female. Patient presents with: Cough: Chest congestion, runny nose x6 days HPI Cough and Chest Congestion: - Cough and chest congestion x6 days. - Sore throat, rhinorrhea, sneezing, and wheezing. - Wheezing noted before severe coughing episodes. - Denies odynophagia. - Fatigue noted yesterday, described as just couldn't hardly go. - Denies taking any medications for symptoms. - Grandson had similar symptoms; chest x-ray performed, but no diagnosis given. Dyspnea: - Dyspnea noted, especially when unable to expectorate sputum. - Dyspnea exacerbated by physical activity. COPD: - Previous diagnosis of COPD, but Dr. Root reportedly stated she does not have it. - Smoker, but has reduced smoking since onset of current symptoms. Review of Systems Constitutional: (+) fatigue Ears/Nose/Mouth/Throat: (+) sore throat, (+) rhinorrhea, (+) sneezing, (-) odynophagia Respiratory: (+) cough, (+) chest congestion, (+) exertional dyspnea, (+) wheezing Objective BP 102/62 Pulse 74 Temp 37.3 C (99.1 F) Resp 18 Wt 63.4 kg (139 lb 12.4 oz) SpO2 97% BMI 23.99 kg/m Physical Exam General: No acute distress. HEENT: Ears and throat normal. CV: Normal heart sounds. Resp: Left lower lobe wheezing. { 1. Acute cough (R05.1) 2. URI, acute (J06.9) 3. Acute exacerbation of chronic obstructive pulmonary disease (HCC) (J44.1) - Acute cough, rhinorrhea, sneezing, and sore throat for 6 days; increased fatigue and mild dyspnea on exertion; left lower lobe wheezing on exam. - Chest X-ray negative for pneumonia. - Start doxycycline BID for 7 days. - Start steroids. - Viral testing for COVID, influenza A/B, and RSV offered. - Educated patient on antibiotic use. and Recording using [employer] software for draft documentation of the visit was discussed with the patient/authorized promotions representative; all questions welcomed and answered. Patient/authorized promotions representative agreed to proceed MDM Procedures documented in this encounter [facility] 11-05-2024 History of Presen t illness Narrative Radiology Service Progress Note PATIENT NAME: Terry Joe DATE OF SERVICE: November 05, 2024 TIME: 3:49 PM PATIENT IDENTITY VERIFICATION COMPLETED USING TWO (2) IDENTIFIERS: Name and Date of confirmed by patient verbally. FALL SCREENING: Has the patient had 2 falls in the last year or 1 fall with injury or currently using an Ambulatory Assistive Device (Walker, Cane, Wheelchair, Crutches, etc.)? No PATIENT GENDER DATA: Assigned female at . status: : No status: NO. PATIENT RELEVANT IMPLANT DATA REVIEWED: Yes PATIENT PRESENTS WITH AN IMPLANTABLE OR ATTACHED PANTRY STEWARD/STEWARDESS: No RADIOLOGY DEPARTMENT: General X-ray: Exam(s) Completed: Chest X-Ray PERIPHERAL IV DATA: Not applicable SIGNED BY: RT Kaleigh(Aleja) November 05, 2024 3:49 PM documented in this encounter [facility] 11-05-2024 Note HNO ID: [id number] Author: JUDITH CAGLE RT(R) Service: ? Author Type: Technologist Type: Progress Notes Filed: 11/05/2024 15:55 Note Text: Radiology Service Progress Note PATIENT NAME: Terry Joe DATE OF SERVICE: November 05, 2024 TIME: 3:49 PM PATIENT IDENTITY VERIFICATION COMPLETED USING TWO (2) IDENTIFIERS: Name and Date of confirmed by patient verbally. FALL SCREENING: Has the patient had 2 falls in the last year or 1 fall with injury or currently using an Ambulatory Assistive Device (Walker, Cane, Wheelchair, Crutches, etc.)? No PATIENT GENDER DATA: Assigned female at . status: : No status: NO. PATIENT RELEVANT IMPLANT DATA REVIEWED: Yes PATIENT PRESENTS WITH AN IMPLANTABLE OR ATTACHED PANTRY STEWARD/STEWARDESS: No RADIOLOGY DEPARTMENT: General X-ray: Exam(s) Completed: Chest X-Ray PERIPHERAL IV DATA: Not applicable SIGNED BY: RT Kaleigh(Aleja) November 05, 2024 3:49 PM [facility] 09-28-2024 Note HNO ID: [id number] Author: CAROLE PARTIDA APRN.TREATMENT TECHNICIAN Service: ? Author Type: Nurse Practitioner Type: Progress Notes Filed: 09/28/2024 12:21 Note Text: 09/28/2024 Patient presents with: Hip Pain: And right leg pain x couple months Recording using [employer] software for draft documentation of the visit was discussed with the patient/authorized promotions representative; all questions welcomed and answered. Patient/authorized promotions representative agreed to proceed SUBJECTIVE: This is a 64 year old that is here today for Above Complaints. Right Hip Pain and Leg Heaviness: - Onset: Approximately one month ago. - Pain begins after walking for 5-10 minutes; described as a feeling of the leg dragging and becoming heavy. - Aggravated by inclines and steps; alleviated by rest. - No known trauma or injury to the hip. - Terry denies swelling over the hip or back pain. - Taking Tylenol for pain management. - No previous imaging of the hip. - Terry denies numbness or tingling in the leg. Foot Drop: - Developed after a hysterectomy in 2007, which also involved reconstructive surgery on the ureters. - Required physical therapy to regain the ability to walk. - Persistent numbness in the toe and some parts of the foot since the surgery. 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 Manuel Central serous chorioretinopathy of right eye [facility] Cervical cancer ([facility]) 2007 CKD (chronic kidney disease) stage 3, GFR 30-59 ml/min ([facility]) Degenerative cervical disc Depression Emphysema (subcutaneous) (surgical) resulting from a procedure Foot drop, right H. pylori infection 04/2016-treated Hyperlipidemia Malignant neoplasm of left ureter ([facility]) Single kidney Stricture of ureter Tobacco use ALLERGIES Bactrim [Sulfamethoxazole-Trimethoprim], Macrobid [Nitrofurantoin Monohyd/M-Cryst], and Penicillins MEDICATIONS Current Outpatient Medications Medication Sig atorvastatin (LIPITOR) 40 mg tablet Take 1 tablet by mouth daily at bedtime. For cholesterol. No current facility-administered medications for this visit. Medications and allergies reviewed by this provider. SOCIAL HISTORY Social History Tobacco Use Smoking status: Every Day Current packs/day: 0.50 Average packs/day: 0.5 packs/day for 30.0 years (15.0 ttl pk-yrs) Types: Cigarettes Smokeless tobacco: Never Tobacco comments: failed chantix Vaping Use Vaping status: Never Used Substance Use Topics Alcohol use: No Drug use: No REVIEW OF SYSTEMS All other reviewed and negative other than HPI. OBJECTIVE: BP 114/68 Pulse 83 Resp 18 Wt 64.4 kg (142 lb) SpO2 94% BMI 24.37 kg/m? . Vital signs reviewed by this provider. GENERAL: NAD, alert and oriented. SKIN: Unremarkable, no rash or skin lesions. HEAD: Normocephalic. EYES: Conjunctiva clear. EXTREMITIES: Normal, no deformities, no skin discoloration, no edema. Good strength in lower extremities. Slight pain on internal rotation of the right hip. Able to walk on tiptoes and heels. No foot dropped noted. 2+ pedal pulses. No clunking of hip with movement NEURO: Awake, alert and oriented x3, normal gait, no involuntary motions. Reflexes intact. Normal sensation. No muscle wasting noted. 1. Right hip pain (M25.551) - Onset approximately one month ago, exacerbated by walking and inclines; no history of hip surgery or trauma. - Physical exam reveals good strength and mobility; mild discomfort on internal rotation and flexion of the right hip. - Ordered X-ray of the right hip to evaluate for potential arthritis or other bony abnormalities. - Continue Tylenol for pain management. - Will consider physical therapy based on X-ray findings. 2. Foot drop, right foot (M21.371) - none noted on exam today - Chronic condition since 2007 following hysterectomy; associated with partial numbness in the toe and foot. - No new interventions at this time. Carole PodlogEUNICE joyce.TREATMENT TECHNICIAN Prescription instructions reviewed with patient as applicable. Patient advised if symptoms do not improve or if symptoms worsen sooner, to contact their primary care physician. Potential red flag symptoms discussed with the patient. Reviewed appropriate action plan to take if red flag symptoms occur. Patient agreeable to treatment plan. Medical Decision Making: Problems: Moderate: New problem with uncertain prognosis Data: Unique test(s) ordered: 1 Risk: Low: Low risk from testing/treatment Medical Decision Making Level: 3 - Low [facility] 09-28-2024 History of Presen t illness Narrative 09/28/2024 Patient presents with: Hip Pain: And right leg pain x couple months Recording using [employer] software for draft documentation of the visit was discussed with the patient/authorized promotions representative; all questions welcomed and answered. Patient/authorized promotions representative agreed to proceed SUBJECTIVE: This is a 64 year old that is here today for Above Complaints. Right Hip Pain and Leg Heaviness: - Onset: Approximately one month ago. - Pain begins after walking for 5-10 minutes; described as a feeling of the leg dragging and becoming heavy. - Aggravated by inclines and steps; alleviated by rest. - No known trauma or injury to the hip. - Terry denies swelling over the hip or back pain. - Taking Tylenol for pain management. - No previous imaging of the hip. - Terry denies numbness or tingling in the leg. Foot Drop: - Developed after a hysterectomy in 2007, which also involved reconstructive surgery on the ureters. - Required physical therapy to regain the ability to walk. - Persistent numbness in the toe and some parts of the foot since the surgery. 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 Manuel Central serous chorioretinopathy of right eye [facility] Cervical cancer ([facility]) 2007 CKD (chronic kidney disease) stage 3, GFR 30-59 ml/min ([facility]) Degenerative cervical disc Depression Emphysema (subcutaneous) (surgical) resulting from a procedure Foot drop, right H. pylori infection 04/2016-treated Hyperlipidemia Malignant neoplasm of left ureter ([facility]) Single kidney Stricture of ureter Tobacco use ALLERGIES Bactrim [Sulfamethoxazole-Trimethoprim], Macrobid [Nitrofurantoin Monohyd/M-Cryst], and Penicillins MEDICATIONS Current Outpatient Medications Medication Sig atorvastatin (LIPITOR) 40 mg tablet Take 1 tablet by mouth daily at bedtime. For cholesterol. No current facility-administered medications for this visit. Medications and allergies reviewed by this provider. SOCIAL HISTORY Social History Tobacco Use Smoking status: Every Day Current packs/day: 0.50 Average packs/day: 0.5 packs/day for 30.0 years (15.0 ttl pk-yrs) Types: Cigarettes Smokeless tobacco: Never Tobacco comments: failed chantix Vaping Use Vaping status: Never Used Substance Use Topics Alcohol use: No Drug use: No REVIEW OF SYSTEMS All other reviewed and negative other than HPI. OBJECTIVE: BP 114/68 Pulse 83 Resp 18 Wt 64.4 kg (142 lb) SpO2 94% BMI 24.37 kg/m . Vital signs reviewed by this provider. GENERAL: NAD, alert and oriented. SKIN: Unremarkable, no rash or skin lesions. HEAD: Normocephalic. EYES: Conjunctiva clear. EXTREMITIES: Normal, no deformities, no skin discoloration, no edema. Good strength in lower extremities. Slight pain on internal rotation of the right hip. Able to walk on tiptoes and heels. No foot dropped noted. 2+ pedal pulses. No clunking of hip with movement NEURO: Awake, alert and oriented x3, normal gait, no involuntary motions. Reflexes intact. Normal sensation. No muscle wasting noted. 1. Right hip pain (M25.551) - Onset approximately one month ago, exacerbated by walking and inclines; no history of hip surgery or trauma. - Physical exam reveals good strength and mobility; mild discomfort on internal rotation and flexion of the right hip. - Ordered X-ray of the right hip to evaluate for potential arthritis or other bony abnormalities. - Continue Tylenol for pain management. - Will consider physical therapy based on X-ray findings. 2. Foot drop, right foot (M21.371) - none noted on exam today - Chronic condition since 2007 following hysterectomy; associated with partial numbness in the toe and foot. - No new interventions at this time. Carole Partida APRN.TREATMENT TECHNICIAN Prescription instructions reviewed with patient as applicable. Patient advised if symptoms do not improve or if symptoms worsen sooner, to contact their primary care physician. Potential red flag symptoms discussed with the patient. Reviewed appropriate action plan to take if red flag symptoms occur. Patient agreeable to treatment plan. Medical Decision Making: Problems: Moderate: New problem with uncertain prognosis Data: Unique test(s) ordered: 1 Risk: Low: Low risk from testing/treatment Medical Decision Making Level: 3 - Low documented in this encounter [facility] 09-24-2024 Telephone encounter Note Patient informed and verbalized understanding. Marina Jenkins MA [facility] 09-24-2024 Miscellaneous Notes Patient informed and verbalized understanding. Marina Jenkins MA ----- Message from Carole Partida APRN.CNP sent at 09/24/2024 6:20 AM EDT ----- Urine culture is positive for bacterial infection. Complete Cipro as this will cover this bacteria. Carole Partida APRN.CNP documented in this encounter [facility] 09-24-2024 Telephone encounter Note ----- Message from Carole Partida APRN.CNP sent at 09/24/2024 6:20 AM EDT ----- Urine culture is positive for bacterial infection. Complete Cipro as this will cover this bacteria. Carole Partida APRN.CNP [facility] 09-21-2024 Instructions Carole Partida APRN.CNP - 09/21/2024 11:13 AM EDT - Take Ciprofloxacin 1 tablet by mouth twice daily for 5 days; prescription sent to [facility] and your urine sample will be sent for culture. - Drink plenty of water throughout the day to help flush your urinary tract. - During antibiotic therapy, take a probiotic supplement or eat yogurt with active cultures to reduce the risk of diarrhea. - Get blood work today (or at your convenience) to recheck kidney function and complete blood count; no fasting is required. - An orthopedic surgery referral has been placed for evaluation of the left-hand contracture; you or your mold capper will hear from that office soon. - Schedule a follow-up appointment to discuss your hip pain and leg dragging (drop foot); contact [facility] to set up a time. documented in this encounter [facility] 09-21-2024 Note HNO ID: [id number] Author: CAROLE PARTIDA APRN.CNP Service: ? Author Type: Nurse Practitioner Type: Progress Notes Filed: 09/21/2024 11:42 Note Text: 09/21/2024 Patient presents with: Follow Up: UTI; restarted symptoms x2 days ago with pain and urinary frequency Recording using [employer] software for draft documentation of the visit was discussed with the patient/authorized promotions representative; all questions welcomed and answered. Patient/authorized promotions representative agreed to proceed SUBJECTIVE: This is a 64 year old that is here today for Above Complaints.. Recurrent UTI Symptoms: - Recent UTI treated with Keflex 500 mg BID x5 days; completed full course. - Initial improvement followed by recurrence of symptoms: urinary urgency, frequency, and suprapubic pressure. - Denies current fevers, chills, abdominal pain, back pain, hematuria, or nausea. - Drinking increased amounts of water. - Allergies to penicillin, Macrobid, and sulfa drugs. Dupuytren's Contracture: - Noticed tightening in the left hand, affecting the ring finger. - No pain associated with the contracture. Hip Pain: - History of foot drop since 2007 following surgery. - Recent onset of hip pain x2 months, occurring after walking for approximately 5 minutes. - Associated with leg dragging. - Completed physical therapy post-surgery to regain leg function. Latest Ref Rng 09/21/2024 GLUCOSE UA (POCT) Negative mg/dL Negative BILIRUBIN UA (POCT) Negative Negative KETONE UA (POCT) Negative mg/dL Negative SPECIFIC GRAVITY UA (POCT) 1.005 - 1.030 1.015 HEMOGLOBIN/BLOOD UA (POCT) Negative Moderate ! PH UA (POCT) 4.5 - 8.0 6.0 PROTEIN UA (POCT) Negative mg/dL 100 ! UROBILINOGEN UA (POCT) Normal E.U./dL 0.2 NITRITE UA (POCT) Negative Negative LEUKOCYTES UA (POCT) Negative Moderate ! COLOR UA (POCT) Yellow CLARITY UA (POCT) Cloudy Legend: ! 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 Manuel Central serous chorioretinopathy of right eye [facility] Cervical cancer ([facility]) 2007 CKD (chronic kidney disease) stage 3, GFR 30-59 ml/min ([facility]) Degenerative cervical disc Depression Emphysema (subcutaneous) (surgical) resulting from a procedure Foot drop, right H. 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 atorvastatin (LIPITOR) 40 mg tablet Take 1 tablet by mouth daily at bedtime. For cholesterol. No current facility-administered medications for this visit. Medications and allergies reviewed by this provider. SOCIAL HISTORY Social History Tobacco Use Smoking status: Every Day Current packs/day: 0.50 Average packs/day: 0.5 packs/day for 30.0 years (15.0 ttl pk-yrs) Types: Cigarettes Smokeless tobacco: Never Tobacco comments: failed chantix Vaping Use Vaping status: Never Used Substance Use Topics Alcohol use: No Drug use: No REVIEW OF SYSTEMS All other reviewed and negative other than HPI. OBJECTIVE: BP 96/66 Pulse 86 Temp 36.5 ?C (97.7 ?F) Resp 16 Wt 64.2 kg (141 lb 9.6 oz) SpO2 96% BMI 24.31 kg/m? . Vital signs reviewed by this provider. GENERAL: NAD, alert and oriented. SKIN: Unremarkable, no rash or skin lesions. HEAD: Normocephalic. EYES: conjunctiva clear. EARS: External ears normal, canals clear, TM's normal. NOSE/SINUSES: Nares normal. Septum midline. OROPHARYNX: Lips, mucosa, and tongue normal, good dentition. No oral lesions noted. NECK: Supple, no lymphadenopathy, normal thyroid, no carotid bruits. LUNGS: Clear to auscultation bilaterally, no wheezes/rhonchi/rales. HEART: Regular rate and rhythm, no murmurs. No ectopy. EXTREMITIES: Dupuytren's contracture noted on the left hand affecting the ring finger. No edema. DTaP,Tdap,Td Vaccine(1 - Tdap) Never done Shingrix Vaccine(1 of 2) Never done Mammogram Screening due on 04/23/2020 Colorectal Cancer Screening due on 04/17/2021 Cervical Cancer Screening due on 06/07/2022 Hemoglobin/Hematocrit due on 09/04/2023 Annual PCP Team Chronic Disease Visit due on 11/16/2024 Serum Creatinine due on 03/24/2025 Diabetes Screening due on 03/24/2027 Lipid Screening due on 03/24/2029 RSV Vaccine(1 - 1-dose 75+ series) due on 02/11/2035 Influenza Vaccine Completed Hepatitis C Screening Completed HIV Screening Completed Covid-19 Vaccine Completed Pneumococcal Vaccine: 50+ Completed 1. UTI symptoms (R39.9) - Symptoms of urinary urgency and pressure have recurred after completing a 5-day course of Keflex. - No fevers, chills, a (more content not included)... [facility] 09-21-[facility] History of Presen t illness Narrative 09/21/2024 Patient presents with: Follow Up: UTI; restarted symptoms x2 days ago with pain and urinary frequency Recording using ambient [employer] software for draft documentation of the visit was discussed with the patient/authorized promotions representative; all questions welcomed and answered. Patient/authorized promotions representative agreed to proceed SUBJECTIVE: This is a 64 year old that is here today for Above Complaints.. Recurrent UTI Symptoms: - Recent UTI treated with Keflex 500 mg BID x5 days; completed full course. - Initial improvement followed by recurrence of symptoms: urinary urgency, frequency, and suprapubic pressure. - Denies current fevers, chills, abdominal pain, back pain, hematuria, or nausea. - Drinking increased amounts of water. - Allergies to penicillin, Macrobid, and sulfa drugs. Dupuytren's Contracture: - Noticed tightening in the left hand, affecting the ring finger. - No pain associated with the contracture. Hip Pain: - History of foot drop since 2007 following surgery. - Recent onset of hip pain x2 months, occurring after walking for approximately 5 minutes. - Associated with leg dragging. - Completed physical therapy post-surgery to regain leg function. Latest Ref Rng 09/21/2024 GLUCOSE UA (POCT) Negative mg/dL Negative BILIRUBIN UA (POCT) Negative Negative KETONE UA (POCT) Negative mg/dL Negative SPECIFIC GRAVITY UA (POCT) 1.005 - 1.030 1.015 HEMOGLOBIN/BLOOD UA (POCT) Negative Moderate ! PH UA (POCT) 4.5 - 8.0 6.0 PROTEIN UA (POCT) Negative mg/dL 100 ! UROBILINOGEN UA (POCT) Normal E.U./dL 0.2 NITRITE UA (POCT) Negative Negative LEUKOCYTES UA (POCT) Negative Moderate ! COLOR UA (POCT) Yellow CLARITY UA (POCT) Cloudy Legend: ! 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 Manuel Central serous chorioretinopathy of right eye [facility] Cervical cancer ([facility]) 2007 CKD (chronic kidney disease) stage 3, GFR 30-59 ml/min ([facility]) Degenerative cervical disc Depression Emphysema (subcutaneous) (surgical) resulting from a procedure Foot drop, right H. pylori infection 04/2016-treated Hyperlipidemia Malignant neoplasm of left ureter (HCC) Single kidney Stricture of ureter Tobacco use ALLERGIES Bactrim [Sulfamethoxazole-Trimethoprim], Macrobid [Nitrofurantoin Monohyd/M-Cryst], and Penicillins MEDICATIONS Current Outpatient Medications Medication Sig ciprofloxacin HCl (CIPRO) 500 mg tablet Take 1 tablet by mouth two times a day for 5 days. atorvastatin (LIPITOR) 40 mg tablet Take 1 tablet by mouth daily at bedtime. For cholesterol. No current facility-administered medications for this visit. Medications and allergies reviewed by this provider. SOCIAL HISTORY Social History Tobacco Use Smoking status: Every Day Current packs/day: 0.50 Average packs/day: 0.5 packs/day for 30.0 years (15.0 ttl pk-yrs) Types: Cigarettes Smokeless tobacco: Never Tobacco comments: failed chantix Vaping Use Vaping status: Never Used Substance Use Topics Alcohol use: No Drug use: No REVIEW OF SYSTEMS All other reviewed and negative other than HPI. OBJECTIVE: BP 96/66 Pulse 86 Temp 36.5 C (97.7 F) Resp 16 Wt 64.2 kg (141 lb 9.6 oz) SpO2 96% BMI 24.31 kg/m . Vital signs reviewed by this provider. GENERAL: NAD, alert and oriented. SKIN: Unremarkable, no rash or skin lesions. HEAD: Normocephalic. EYES: conjunctiva clear. EARS: External ears normal, canals clear, TM's normal. NOSE/SINUSES: Nares normal. Septum midline. OROPHARYNX: Lips, mucosa, and tongue normal, good dentition. No oral lesions noted. NECK: Supple, no lymphadenopathy, normal thyroid, no carotid bruits. LUNGS: Clear to auscultation bilaterally, no wheezes/rhonchi/rales. HEART: Regular rate and rhythm, no murmurs. No ectopy. EXTREMITIES: Dupuytren's contracture noted on the left hand affecting the ring finger. No edema. DTaP,Tdap,Td Vaccine(1 - Tdap) Never done Shingrix Vaccine(1 of 2) Never done Mammogram Screening due on 04/23/2020 Colorectal Cancer Screening due on 04/17/2021 Cervical Cancer Screening due on 06/07/2022 Hemoglobin/Hematocrit due on 09/04/2023 Annual PCP Team Chronic Disease Visit due on 11/16/2024 Serum Creatinine due on 03/24/2025 Diabetes Screening due on 03/24/2027 Lipid Screening due on 03/24/2029 RSV Vaccine(1 - 1-dose 75+ series) due on 02/11/2035 Influenza Vaccine Completed Hepatitis C Screening Completed HIV Screening Completed Covid-19 Vaccine Completed Pneumococcal Vaccine: 50+ Completed 1. UTI symptoms (R39.9) - Symptoms of urinary urgency and pressure have recurred after completing a 5-day course of Keflex. - No fevers, chills, abdominal pain, or hematuria reported; mild nausea previously, now resolved. - Urinalysis performed; urine sample sent for culture. - Prescribed Ciprofloxacin 500 mg orally twice daily for 5 days. - Advised to take probiotics or consume yogurt with probiotics to prevent antibiotic-associated diarrhea. - will need to follow-up to discuss further concerns 2. Dupuytren's contracture of left hand (M72.0) - Noted contracture affecting the ring finger of the left hand with palpable nodule. - Discussed the benign and slowly progressive nature of the condition. - Orthopedic surgery consult ordered for further evaluation and management. 3. Stage 3b chronic kidney disease (HCC) (N18.32) - Recent labs from March show decreased kidney function. - Ordered repeat renal function tests to monitor progression. - Follow-up appointment scheduled to discuss results and ongoing management. Carole Partida APRN.BLAIR Prescription instructions reviewed with patient as applicable. Patient advised if symptoms do not improve or if symptoms worsen sooner, to contact their primary care physician. Potential red flag symptoms discussed with the patient. Reviewed appropriate action plan to take if red flag symptoms occur. Patient agreeable to treatment plan. Medical Decision Making: Problems: Low: Acute, uncomplicated illness or injury Moderate: New problem with uncertain prognosis Data: Unique test(s) ordered: 1 Risk: Moderate: Drug management Medical Decision Making Level: 4 - Moderate ;c documented in this encounter [facility] 09-11-2024 Note HNO ID: [id number] Author: LOKESH PLUMMER APRN.BLAIR Service: ? Author Type: Nurse Practitioner Type: Progress Notes Filed: 09/11/2024 11:33 Note Text: [facility] Subjective Terry Joe is a 64 year old female. Patient presents with: Urinary Frequency: Frequency, burning and fever x 2 days HPI Urinary Tract Infection: - Dysuria and urinary frequency x2 days. - Reports feeling febrile. - History of recurrent UTIs; has a solitary kidney. - Previous treatment with Cipro, which she reports has been effective. Review of Systems Constitutional: (+) fever Genitourinary: (+) dysuria, (+) urinary frequency, (-) flank pain Gastrointestinal: (-) abdominal pain Objective BP 122/78 Pulse 96 Temp 37.6 ?C (99.7 ?F) (Tympanic) Resp 18 Wt 65.3 kg (143 lb 15.4 oz) SpO2 97% BMI 24.71 kg/m? Physical Exam General: No acute distress. CV: Heart sounds normal. Resp: Lung sounds normal. Abd: Abdomen soft, no tenderness. {1. Urinary frequency (R35.0) 2. Acute cystitis without hematuria (N30.00) - Symptoms consistent with urinary tract infection; patient has a history of recurrent UTIs and a solitary kidney. - No severe abdominal pain or CVA tenderness on exam. - Initiated Keflex 500 mg PO BID for 5 days. - Urine sample sent for culture and sensitivity. - Educated patient on potential risks of Ciprofloxacin, including tendon rupture and cardiac issues; reserved for use only if culture indicates resistance to first-line treatment. - Advised to seek immediate medical attention if symptoms worsen or if there is increased pain, given the presence of a solitary kidney. and Recording using [employer] software for draft documentation of the visit was discussed with the patient/authorized promotions representative; all questions welcomed and answered. Patient/authorized promotions representative agreed to proceed MDM Procedures [facility] 09-11-2024 History of Presen t illness Narrative GILMER Joe is a 64 year old female. Patient presents with: Urinary Frequency: Frequency, burning and fever x 2 days HPI Urinary Tract Infection: - Dysuria and urinary frequency x2 days. - Reports feeling febrile. - History of recurrent UTIs; has a solitary kidney. - Previous treatment with Cipro, which she reports has been effective. Review of Systems Constitutional: (+) fever Genitourinary: (+) dysuria, (+) urinary frequency, (-) flank pain Gastrointestinal: (-) abdominal pain Objective BP 122/78 Pulse 96 Temp 37.6 C (99.7 F) (Tympanic) Resp 18 Wt 65.3 kg (143 lb 15.4 oz) SpO2 97% BMI 24.71 kg/m Physical Exam General: No acute distress. CV: Heart sounds normal. Resp: Lung sounds normal. Abd: Abdomen soft, no tenderness. {1. Urinary frequency (R35.0) 2. Acute cystitis without hematuria (N30.00) - Symptoms consistent with urinary tract infection; patient has a history of recurrent UTIs and a solitary kidney. - No severe abdominal pain or CVA tenderness on exam. - Initiated Keflex 500 mg PO BID for 5 days. - Urine sample sent for culture and sensitivity. - Educated patient on potential risks of Ciprofloxacin, including tendon rupture and cardiac issues; reserved for use only if culture indicates resistance to first-line treatment. - Advised to seek immediate medical attention if symptoms worsen or if there is increased pain, given the presence of a solitary kidney. and Recording using [employer] software for draft documentation of the visit was discussed with the patient/authorized promotions representative; all questions welcomed and answered. Patient/authorized promotions representative agreed to proceed MDM Procedures documented in this encounter [facility] 03-24-2024 Note Patient Outreach (IN TMMN) TERRY JOE ([id number]) [address] [facility] Date Time Provider Department 03/24/24 TARAH ROOT During your visit today, we recorded the following information about you: Allergies As of Date: 03/24/2024 Noted Allergy Reaction BACTRIM (SULFAMETHOXAZOLE-TRIMETH*2014 11 - Vomiting MACROBID (NITROFURANTOIN MONOHYD/*12/10/2016 16 - Unknown PENICILLINS 10/11/2014 2 - Rash Date Reviewed: 11/17/2023 Reviewed by: Yesica Boyle LPN - Fully Assessed Visit Diagnosis:Encounter for screening mammogram for breast cancer [Z12.31] Order(s):LEONOR SCREENING [place] CALDWELL [[id number]] Order #: [id number] FUTURE Prescriptions as of 03/29/2024 - atorvastatin (LIPITOR) 40 mg tablet Take 1 tablet by mouth daily at bedtime. For cholesterol. 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 pylori infection [A04.8] 10/09/2017 Hyperlipidemia [E78.5] Central serous chorioretinopathy of right eye [* Stage 3b chronic kidney disease (HCC) [N18.32] 11/14/2023 Encounter Status:Closed by GINETTE ACEVES on 03/29/24 [facility] 01-27-2024 Telephone encounter Note Prescription Refill Information The patient has been identified by name and date of : Yes Caregiver verified no other encounters exist for this prescription request: Yes Caregiver confirmed with patient/requestor that no other refills are due, in the near future, with this provider at this time: Yes The last office visit in the department: 11/17/23 Does the patient have a future office visit with this provider/department: Yes Requested Prescriptions Pending Prescriptions Disp Refills atorvastatin (LIPITOR) 40 mg tablet 90 tablet 3 Sig: Take 1 tablet by mouth daily at bedtime. For cholesterol. Teressa Trotter [facility] January 27, 2024 12:17 PM [facility] 01-27-2024 Miscellaneous Notes Prescription Refill Information The patient has been identified by name and date of : Yes Caregiver verified no other encounters exist for this prescription request: Yes Caregiver confirmed with patient/requestor that no other refills are due, in the near future, with this provider at this time: Yes The last office visit in the department: 11/17/23 Does the patient have a future office visit with this provider/department: Yes Requested Prescriptions Pending Prescriptions Disp Refills atorvastatin (LIPITOR) 40 mg tablet 90 tablet 3 Sig: Take 1 tablet by mouth daily at bedtime. For cholesterol. Teressa Trotter [facility] January 27, 2024 12:17 PM documented in this encounter [facility] 11-17-2023 History of Presen t illness Narrative 11/14/2023 Patient presents with: F/U 6 months SUBJECTIVE: This is a 63 year old that is here today for Above Complaints. Since last office visit has been in good health without ER visits or hospitalizations. No concerns today. HYPERLIPIDEMIA: Patient is taking medications: Yes. Patient is watching diet: Yes. Patient denies myalgias: Yes. Patient denies gi upset: Yes Smoking: still smoking about a 1/2 pack a day. Has tried chantix in the past. Thinking about nicotine patches PAST MEDICAL HISTORY No date: Acquired hydronephrosis No date: Benign neoplasm of left ureter No date: Cancer of left ureter (HCC) Comment: Dr. Manuel No date: Central serous chorioretinopathy of right eye Comment: [facility] 2007: Cervical cancer (HCC) No date: CKD (chronic kidney disease) stage 3, GFR 30-59 ml/min (HCC) No date: Degenerative cervical disc No date: Depression No date: Emphysema (subcutaneous) (surgical) resulting from a procedure No date: Foot drop, right No date: H. pylori infection Comment: 04/2016-treated No date: Hyperlipidemia No date: Malignant neoplasm of left ureter (HCC) No date: Single kidney No date: Stricture of ureter No date: Tobacco use ALLERGIES Bactrim [Sulfamethoxazole-Trimethoprim], Macrobid [Nitrofurantoin Monohyd/M-Cryst], and Penicillins MEDICATIONS Current Outpatient Medications Medication Sig atorvastatin (LIPITOR) 40 mg tablet Take 1 tablet by mouth daily at bedtime. For cholesterol. No current facility-administered medications for this visit. Medications and allergies reviewed by this provider. SOCIAL HISTORY Social History Tobacco Use Smoking status: Every Day Packs/day: 0.50 Years: 30.00 Additional pack years: 0.00 Total pack years: 15.00 Types: Cigarettes Smokeless tobacco: Never Tobacco comments: failed chantix Vaping Use Vaping Use: Never used Substance Use Topics Alcohol use: No Drug use: No REVIEW OF SYSTEMS All other reviewed and negative other than HPI. OBJECTIVE: BP 104/66 Pulse 83 Resp 18 Wt 69.6 kg (153 lb 7 oz) SpO2 97% BMI 26.34 kg/m . Vital signs reviewed by this provider. APPEARANCE Well appearing, alert, in no acute distress, well-hydrated, well nourished. EYES conjunctiva and sclera normal. HEART RRR with normal S1 and S2, no murmurs, no gallops, no JVD appreciated LUNG clear to auscultation. No wheezes, rhonchi or rales EXTREMITIES Extremities normal, No deformities, No skin discoloration, and No edema SKIN Skin color, texture, turgor normal, no suspicious rashes or lesions to expose skin Latest Ref [facility] 03/11/2023 Protein, Total 6.3 - 8.0 g/dL 6.7 Albumin 3.9 - 4.9 g/dL 4.0 Calcium 8.5 - 10.2 mg/dL 9.2 Bilirubin, Total 0.2 - 1.3 mg/dL 0.3 Alkaline Phosphatase 34 - 123 U/L 93 AST 13 - 35 U/L 22 ALT 7 - 38 U/L 14 Glucose 74 - 99 mg/dL 61 (L) BUN 7 - 21 mg/dL 13 Creatinine 0.58 - 0.96 mg/dL 1.16 (H) Sodium 136 - 144 mmol/L 144 Potassium 3.7 - 5.1 mmol/L 3.8 Chloride 97 - 105 mmol/L 107 (H) CO2 22 - 30 mmol/L 25 Anion Gap 9 - 18 mmol/L 12 eGFR >=60 mL/min/1.73m 53 (L) Latest Ref Rng 03/11/2023 Protein, Total 6.3 - 8.0 g/dL 6.7 Albumin 3.9 - 4.9 g/dL 4.0 Calcium 8.5 - 10.2 mg/dL 9.2 Bilirubin, Total 0.2 - 1.3 mg/dL 0.3 Alkaline Phosphatase 34 - 123 U/L 93 AST 13 - 35 U/L 22 ALT 7 - 38 U/L 14 Glucose 74 - 99 mg/dL 61 (L) BUN 7 - 21 mg/dL 13 Creatinine 0.58 - 0.96 mg/dL 1.16 (H) Sodium 136 - 144 mmol/L 144 Potassium 3.7 - 5.1 mmol/L 3.8 Chloride 97 - 105 mmol/L 107 (H) CO2 22 - 30 mmol/L 25 Anion Gap 9 - 18 mmol/L 12 eGFR >=60 mL/min/1.73m 53 (L) DTaP,Tdap,Td Vaccine(1 - Tdap) Never done Shingrix Vaccine(1 of 2) Never done RSV Vaccine(1 - 1-dose 60+ series) Never done Mammogram Screening due on 04/23/2020 Colorectal Cancer Screening due on 04/17/2021 Cervical Cancer Screening due on 06/07/2022 Hemoglobin/Hematocrit due on 09/04/2023 Influenza Vaccine(1) due on 12/14/2023 Annual PCP Team Chronic Disease Visit due on 03/11/2024 Serum Creatinine due on 03/11/2024 Diabetes Screening due on 03/11/2026 Lipid Screening due on 09/04/2027 Hepatitis C Screening Completed HIV Screening Completed Covid-19 Vaccine Completed Pneumococcal Vaccine Completed ASSESSMENT/PLAN: 1. Mixed hyperlipidemia - ICD9: 272.2, ICD10: E78.2 (primary diagnosis) - Control undetermined, due for labs - Continue current medications - Counseled on healthy diet and regular exercise - Follow up in 6 months, sooner should any other issues arise. - LIPID PANEL BASIC - COMPREHENSIVE METABOLIC PANEL 2. Stage 3b chronic kidney disease (HCC) - ICD9: 585.3, ICD10: N18.32 - eGFR: 53 Stable - Counseled on avoiding NSAIDs, adequate hydration - Counseled on low sodium diet - COMPLETE BLOOD COUNT AND DIFFERENTIAL - HEMOGLOBIN - HEMATOCRIT - follow-up in 6 months, sooner if needed 3. Tobacco use - ICD9: 305.1, ICD10: Z72.0 - Cessation encouraged. - Physiologic and physical aspects of tobacco addiction as well as strategies for quitting were discussed. - Counseling was given focusing on the harmful effects of this addiction especially given the patient's medical condition(s) which will be worsened because of the chemicals in tobacco. - CONSULT LUNG CANCER SCREENING CLINIC 4. Hx of colonic polyps - ICD9: V12.72, ICD10: Z86.010 - CONSULT TO GENERAL SURGERY Carole Patrida APRN.CNP Prescription instructions reviewed with patient as applicable. Patient advised if symptoms do not improve or if symptoms worsen sooner, to contact their primary care physician. Potential red flag symptoms discussed with the patient. Reviewed appropriate action plan to take if red flag symptoms occur. Patient agreeable to treatment plan. Medical Decision Making: Problems: Moderate: 2+ stable chronic illnesses Data: Unique test(s) ordered: 3+ Risk: Moderate: Moderate risk from testing/treatment Medical Decision Making Level: 4 - Moderate documented in this encounter [facility] 11-17-2023 Instructions Carole Partida APRN.CNP - 11/17/2023 1:36 PM EDT Fast for blood work and complete in February Call and scheduled appointment with General Surgery for colonoscopy documented in this encounter [facility] 03-10-2023 Miscellaneous Notes TC to patient to patient who verbalized understanding of providers message and is agreeable to schedule. Patient now rescheduled for 03/11 with REJI. Nothing further at this time. ZAYRA Monsalve No showed appointment on 02/28 and needs to reschedule OV> SHEYLA 08/27/22 NOV not scheduled Pharmacy verified in [facility] Patient has been identified by name and date of : Yes Patient aware RX will be sent to pharmacy. No need to notify patient. Patient phones for refill(s): Requested Prescriptions Pending Prescriptions Disp Refills atorvastatin (LIPITOR) 40 mg tablet 90 tablet 1 Sig: Take 1 tablet by mouth daily at bedtime. For cholesterol. Date of last office visit : 08/27/2022 Date of next office visit : Visit date not found Last 2 Encounter Wt Readings: Date: Wt: 11/28/2022 68.8 kg (151 lb 9.6 oz) 08/27/2022 69.4 kg (153 lb) Not applicable Please advise. Sia Villalobos documented in this encounter [facility] 11-30-2022 Miscellaneous Notes States symptoms seem to be improving, Patient given results and verbalized understanding of instructions given. Birdie Mendoza Urine culture reveals bacterial growth. Antibiotic selected is appropriate. Please reach out and inquire to improvement of symptoms (if not improving may consider changing). Complete ATB Follow up with PCP Please advise patient of above. documented in this encounter [facility] 11-28-2022 History of Presen t illness Narrative CC: Patient presents with: Urinary Problem: Burning and urgency x 3 days Patient's had urinary tract infections before. Patient says it feels the same. HPI Terry Joe is a 62 year old female who presents with complaint of possible UTI. These symptoms have been present for 3 days. Associated symptoms: burning and urgency Denies: foul smelling urine, fever, chills, sweats, abdominal pain, and flank pain Treatments: nothing The ROS was otherwise negative. PMH, Medications, labs, allergies, and recent past visits with PCP were reviewed and updated as able. 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 Manuel Central serous chorioretinopathy of right eye [facility] Cervical cancer ([facility]) 2007 CKD (chronic kidney disease) stage 3, GFR 30-59 ml/min ([facility]) Degenerative cervical disc Depression Emphysema (subcutaneous) (surgical) resulting from a procedure Foot drop, right H. pylori infection 04/2016-treated Hyperlipidemia Malignant neoplasm of left ureter ([facility]) Single kidney Stricture of ureter Tobacco use PAST SURGICAL HISTORY Procedure Laterality Date SECTION HX x2 COLONOSCOPY 2007 COLONOSCOPY FLX DX W/COLLJ SPEC WHEN PFRMD 04/17/2016 Colonoscopy mac ESOPHAGOGASTRODUODENOSCOPY TRANSORAL DIAGNOSTIC 04/17/2016 EGD mac HYSTERECTOMY HX 2008 robiotic for cerivcal cancer LAP NEPHRECTOMY Left 12/14/2015 ALLERGIES Bactrim [Sulfamethoxazole-Trimethoprim], Macrobid [Nitrofurantoin Monohyd/M-Cryst], and Penicillins MEDICATIONS atorvastatin (LIPITOR) 40 mg tablet Take 1 tablet by mouth daily at bedtime. For cholesterol. cephALEXin (KEFLEX) 500 mg capsule Take 1 capsule by mouth twice daily for 7 days. nicotine (NICODERM) 21 mg/24 hr Apply 1 Patch as directed every 24 hours. (Patient not taking: Reported on 11/28/2022) albuterol HFA (VENTOLIN HFA) 90 mcg/actuation inhaler Inhale 2 Puffs as instructed every 4 hours as needed. (Patient not taking: Reported on 11/28/2022) FAMILY HISTORY Problem Relation Age of Onset Heart Mother young age Emphysema Mother Heart Father Colon Cancer Father age of 81 Hypertension Brother Heart Brother pacemaker Aneurysm Brother brain Hypertension Sister Heart Sister a fib Hyperlipidemia Sister Social History Tobacco Use Smoking status: Every Day Packs/day: 0.50 Years: 30.00 Additional pack years: 0.00 Total pack years: 15.00 Types: Cigarettes Smokeless tobacco: Never Tobacco comments: failed chantix Vaping Use Vaping Use: Never used Substance Use Topics Alcohol use: No Drug use: No ASSESSMENT/PLAN: 1. Burning with urination - ICD9: 788.1, ICD10: R30.0 - UA DIP, URINE (POC) - URINE CULTURE - CEPHALEXIN 500 MG CAPSULE Prescription instructions reviewed with patient as applicable. Potential red flag symptoms discussed with the patient. Reviewed appropriate action plan to take if red flag symptoms occur. Patient agreeable to treatment plan. Patient is going on vacation tomorrow to [place]. Patient needs her medication changed please call it into a pharmacy that is also down there. Call patient to ask what is around her. Lokesh Plummer APRN.CNP documented in this encounter [facility] 09-04-2022 Miscellaneous Notes Patient notified of results, verbalizes understanding of instructions. Blanca Infante LPN Please call patient and let her know her kidney function is down some but improved from last check- continue to eat low salt diet, stay well hydrated and avoid NSAID products. Blood sugar was a little low possible due to lab error. The rest of her blood work was in acceptable ranges. Carole Partida APRN.BLAIR documented in this encounter [facility] 08-27-2022 History of Presen t illness Narrative Radiology Service Progress Note PATIENT NAME: Terry Joe DATE OF SERVICE: August 27, 2022 TIME: 12:44 PM PATIENT IDENTITY VERIFICATION COMPLETED USING TWO (2) IDENTIFIERS: Name and Date of confirmed by patient verbally. FALL SCREENING: Has the patient had 2 falls in the last year or 1 fall with injury or currently using an Ambulatory Assistive Device (Walker, Cane, Wheelchair, Crutches, etc.)? No PATIENT GENDER DATA: Female. status: : No status: NO. PATIENT RELEVANT IMPLANT DATA REVIEWED: Not Applicable RADIOLOGY DEPARTMENT: General X-ray: Exam(s) Completed: Upper Extremity X-Ray(s): Forearm, left and Wrist, left PERIPHERAL IV DATA: Not applicable SIGNED BY: RT Jennifer(R) August 27, 2022 12:44 PM documented in this encounter [facility] 08-26-2022 Miscellaneous Notes Patient scheduled for follow up appointment on 08/27 with Carole ROJO. Yenny Donald RN Patient is calling back in asking about her medication? Wants to know when this will be sent to the pharmacy. Contact patient at [phone]. Staci Villalobos Patient has been identified by name and date of : Yes, Provider EDDIE Patient phones for refill(s): Requested Prescriptions Pending Prescriptions Disp Refills atorvastatin (LIPITOR) 40 mg tablet 90 tablet 0 Sig: Take 1 tablet by mouth daily at bedtime. For cholesterol. Date of last office visit in primary care: 07/24/21 Date of next office visit in primary care: N/A Last 2 Encounter Wt Readings: Date: Wt: 11/22/2021 71.5 kg (157 lb 9.6 oz) 07/24/2021 72.7 kg (160 lb 3.2 oz) Previous labs/tests for medication: Not applicable Please advise. Thank you. Breana Rodriguez documented in this encounter [facility] 05-08-2022 Miscellaneous Notes Apt booked. Rosario Yoder LPN Patient is due for routine follow-up. Please assist in scheduling. Carole Partida APRN.BLAIR SHEYLA 07/24/21 NOV 05/14/22 Patient has been identified by name and date of : Yes Requested Prescriptions Pending Prescriptions Disp Refills atorvastatin (LIPITOR) 40 mg tablet 90 tablet 3 Sig: Take 1 tablet by mouth daily at bedtime. For cholesterol. RX INSTRUCTIONS: Patient aware RX will be sent to pharmacy. No need to notify patient. Vanessa Pagan Pss documented in this encounter [facility] 11-26-2021 Miscellaneous Notes Patient active MyChart. Patient notified via MyChart message. Herbert Sepulveda MA Left message for pt to call back. Adele Mccloud MA Please inform patient that urine culture did not show any growth of bacteria requiring treatment. IAdvise if still having symptoms follow up with pcpc Thank you. Pam Sandra APRN.BLAIR documented in this encounter [facility] 11-22-2021 Miscellaneous Notes Unfortunately we do not do prior authorization, these are available over the counter to try. Pam Sandra APRN.BLAIR PRIOR AUTHORIZATION Medication for Prior Authorization: Lidocaine 5% patches Other formulary meds available : NO Insurance Company: [employer] phone number: [phone] Patient insurance ID number: [id number] Yumiko Esposito LPN Patient had called and said has to call so I can get rx. I phoned [facility] and was told needs PA done. documented in this encounter [facility] 11-22-2021 History of Presen t illness Narrative Images from the original note were not included. Subjective Patient came in with complaints of lower back pain and rigth hip pain. Started 3 days ago. Patient does not remember injuring it in any way. Alonzo this has happened before but usually she can control it with tylenol. Tylenol does not seem to be helping at this time. Does not have difficulty urinating, no numbness or tingling noted. The history is provided by the patient. No destaticizer feeder was used. Back Pain Review of Systems Constitutional: Negative. Musculoskeletal: Positive for back pain. Skin: Negative. Objective Physical Exam Constitutional: Appearance: Normal appearance. Pulmonary: Effort: Pulmonary effort is normal. Skin: Comments: Patient said the pain is located in this area. Is tender when palpated. Neurological: Mental Status: She is alert. 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 Manuel Central serous chorioretinopathy of right eye [facility] Cervical cancer (HCC) 2007 CKD (chronic kidney disease) stage 3, GFR 30-59 ml/min (HCC) Degenerative cervical disc Depression Emphysema (subcutaneous) (surgical) resulting from a procedure Foot drop, right H. pylori infection 04/2016-treated Hyperlipidemia Malignant neoplasm of left ureter (HCC) Single kidney Stricture of ureter Tobacco use PAST SURGICAL HISTORY Procedure Laterality Date SECTION HX x2 COLONOSCOPY 2007 COLONOSCOPY FLX DX W/COLLJ SPEC WHEN PFRMD 04/17/2016 Colonoscopy mac ESOPHAGOGASTRODUODENOSCOPY TRANSORAL DIAGNOSTIC 04/17/2016 EGD mac HYSTERECTOMY HX 2007 robiotic for cerivcal cancer LAP NEPHRECTOMY Left 12/14/2015 ALLERGIES Bactrim [Sulfamethoxazole-Trimethoprim], Macrobid [Nitrofurantoin Monohyd/M-Cryst], and Penicillins MEDICATIONS cholecalciferol, Vitamin D3, (VITAMIN D3) 1,250 mcg (50,000 unit) cap capsule Take 1 capsule by mouth one time a week. atorvastatin (LIPITOR) 40 mg tablet Take 1 tablet by mouth daily at bedtime. For cholesterol. albuterol HFA (VENTOLIN HFA) 90 mcg/actuation inhaler Inhale 2 Puffs as instructed every 4 hours as needed. FAMILY HISTORY Problem Relation Age of Onset Heart Mother young age Emphysema Mother Heart Father Colon Cancer Father age of 81 Hypertension Brother Heart Brother pacemaker Aneurysm Brother brain Hypertension Sister Heart Sister a fib Hyperlipidemia Sister Social History Tobacco Use Smoking status: Every Day Packs/day: 0.50 Years: 30.00 Pack years: 15.00 Types: Cigarettes Smokeless tobacco: Never Tobacco comments: failed chantix Vaping Use Vaping Use: Never used Substance Use Topics Alcohol use: No Drug use: No ASSESSMENT/PLAN: 1. Acute right-sided back pain, unspecified back location - ICD9: 724.5, ICD10: M54.9 - UA DIP, URINE (POC) - URINE CULTURE - XR HIP GENERAL 3V PELV/AP/LAT RIGHT - XR SACRUM/COCCYX 3V AP/LAT - XR LUMBAR GENERAL 3V AP/LAT/L5-S1 * * * * Physician Interpretation * * * * X-ray lumbosacral spine, AP, lateral and L5-S1 views X-ray sacrum and coccyx, AP and lateral views Indication: Low back pain Comparison: None Counting reference: Lumbosacral junction. For the purposes of this report, L5S1 is considered the last lumbar type disc space and L4-5 is considered the level of the iliac crest. No acute fracture or destructive osseous lesion. Grade 1 retrolisthesis of L2 on L3. No facet subluxation. Intervertebral disc space narrowing at L2-3 and L3-4 with endplate sclerosis and vertebral body osteophytes. Sacroiliac joints appear normal. IMPRESSION IMPRESSION: No acute fracture. Degenerative disease of the lumbar spine. [facility] Transcribe Date/Time: Nov 22 2021 10:30A Dictated by : CRESENCIO LAW MD * * * * Physician Interpretation * * * * EXAMINATION: XR HIP 3V PELV+ AP/LAT RT CLINICAL HISTORY: Right hip pain Technique: XR HIP 3V PELV+ AP/LAT RT -- RIGHT with 3 views on 3 images Comparison: None RESULT: No acute fracture or hip dislocation. Joint spaces are maintained. 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 Patient education about drowsiness properties of medication. Patient was instructed to rest and follow up with PCP if symptoms persist. Patient was okay with this care plan Lokesh Plummer APRN.BLAIR documented in this encounter [facility] 07-30-2021 Miscellaneous Notes Patient notified, verbalized understanding. Matthew Posey Ma Patient telephoned. Unable to leave message due to mailbox being full. Yesica Boyle LPN Please call patient and let her know her vitamin D level is low- I have sent over prescription - she is to take ONE tablet a week for 12 weeks- then recheck level after. Kidney function is stable- continue to eat low salt diet, avoid NSAID products and stay well hydrated. The rest of her blood work is within acceptable limits. Thanks, Carole Partida APRN.TREATMENT TECHNICIAN documented in this encounter [facility] 07-26-2021 Miscellaneous Notes Patient notified of results, verbalizes understanding of instructions. Blanca Infante LPN Urine culture negative for infection. Push PO fluids. Recheck UA with micro in 1 month to follow up on trace blood in urine. documented in this encounter [facility] 01-17-2021 History of Presen t illness Narrative Radiology Service Progress Note PATIENT NAME: Terry Joe DATE OF SERVICE: January 17, 2021 TIME: 11:33 AM PATIENT IDENTITY VERIFICATION COMPLETED USING TWO (2) IDENTIFIERS: Name and Date of confirmed by patient verbally. FALL SCREENING: Has the patient had 2 falls in the last year or 1 fall with injury or currently using an Ambulatory Assistive Device (Walker, Cane, Wheelchair, Crutches, etc.)? No PATIENT GENDER DATA: Female. status: : No status: NO. PATIENT RELEVANT IMPLANT DATA REVIEWED: Yes RADIOLOGY DEPARTMENT: General X-ray: Exam(s) Completed: Lower Extremity X-Ray(s): Knee, AP / Lat / Tunne / Merchant Left and Wt. Bearing PERIPHERAL IV DATA: Not applicable SIGNED BY: RT Laila(R) January 17, 2021 11:33 AM documented in this encounter [facility] 10-31-2020 Note HNO ID: [id number] Author: Yvette Holguin PA-C Service: ? 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 Pt is s/p left nephrectomy years ago, has had right flank pain for several days. Pt denies dysuria, hematuria, fever or chills. LAB: Creatinine Date Value Ref Range Status 06/16/2020 1.22 (H) 0.58 - 0.96 mg/dL Final No results found for: PSA Glucose, Urine (mg/dL) Date Value 07/23/2017 neg Bilirubin, Urine (no units) Date Value 07/23/2017 neg Ketones, Urine (no units) Date Value 07/23/2017 neg Specific [place], Ur (no units) Date Value 07/23/2017 1.015 Hemoglobin/Blood,Ur (no units) Date Value 07/23/2017 neg pH, Urine (no units) Date Value 07/23/2017 6.5 Protein, Urine (mg/dL) Date Value 07/23/2017 neg Urobilinogen, Urine (EU) Date Value 07/23/2017 0.2 Nitrites (no units) Date Value 07/23/2017 neg Leukocytes (no units) Date Value 07/23/2017 small Color/Appearance (comment:) Date Value 07/23/2017 y/c MEDICATIONS: ciprofloxacin HCl (CIPRO) 500 mg tablet Take 1 tablet by mouth twice daily for 7 days. escitalopram oxalate (LEXAPRO) 20 mg tablet Take 1 tablet by mouth once daily. atorvastatin (LIPITOR) 40 mg tablet Take 1 tablet by mouth daily at bedtime. For cholesterol. albuterol HFA (VENTOLIN HFA) 90 mcg/actuation inhaler Inhale 2 Puffs as instructed every 4 hours as needed. Review of Systems All other systems reviewed and are negative. 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 Manuel - Central serous chorioretinopathy of right eye [facility] - Cervical cancer ([facility]) 2007 - CKD (chronic kidney disease) stage 3, GFR 30-59 ml/min ([facility]) - Degenerative cervical disc - Depression - Emphysema (subcutaneous) (surgical) resulting from a procedure - Foot drop, right - H. pylori infection 04/2016-treated - Hyperlipidemia - Malignant neoplasm of left ureter ([facility]) - Single kidney - Stricture of ureter - Tobacco use FAMILY HISTORY Problem Relation Age of Onset - Heart Mother young age - Emphysema Mother - Heart Father - Colon Cancer Father age of 81 - Hypertension Brother - Heart Brother pacemaker - Aneurysm Brother brain - Hypertension Sister - Heart Sister a fib - Hyperlipidemia Sister Social History Tobacco Use - Smoking status: Current Every Day Smoker Packs/day: 0.50 Years: 30.00 Pack years: 15.00 - Smokeless tobacco: Never Used - Tobacco comment: failed chantix Vaping Use - Vaping Use: Never used Substance Use Topics - Alcohol use: No - Drug use: No PHYSICAL EXAMINATION GENERAL APPEARANCE: Well appearing, alert, in no acute distress, well-hydrated, well nourished. ASSESSMENT/PLAN: 1. Acute right flank pain - ICD9: 789.09, 338.19, ICD10: R10.9 - US KIDNEY/BLADDER - URINALYSIS, WITH MICROSCOPIC - URINE CULTURE cipro Follow up pending results Yvette Holguin PA-C [facility] 10-11-2014 History of Past i llness Narrative Problem Noted Date Resolved Date COPD (chronic obstructive pulmonary disease) 06/04/2019 Overview: She has copd from the smoking but does not want to stop, She wants to quit smoking, tried the chantix and stopped smoking when she had her cancer but restarted again after her surgery, documented as of this encounter (statuses as of 07/30/2021) [facility] History of Past illness Narrative* Problem Noted Date Resolved Date COPD (chronic obstructive pulmonary disease) 06/04/2019 Overview: She has copd from the smoking but does not want to stop, She wants to quit smoking, tried the chantix and stopped smoking when she had her cancer but restarted again after her surgery, documented as of this encounter (statuses as of 10/31/2021) [facility] History of Past illness Narrative* Problem Noted Date Resolved Date COPD (chronic obstructive pulmonary disease) 06/04/2019 Overview: She has copd from the smoking but does not want to stop, She wants to quit smoking, tried the chantix and stopped smoking when she had her cancer but restarted again after her surgery, documented as of this encounter (statuses as of 11/22/2021) [facility] History of Past illness Narrative* Problem Noted Date Resolved Date COPD (chronic obstructive pulmonary disease) 06/04/2019 Overview: She has copd from the smoking but does not want to stop, She wants to quit smoking, tried the chantix and stopped smoking when she had her cancer but restarted again after her surgery, documented as of this encounter (statuses as of 11/26/2021) [facility] History of Past illness Narrative* Problem Noted Date Resolved Date COPD (chronic obstructive pulmonary disease) 06/04/2019 Overview: She has copd from the smoking but does not want to stop, She wants to quit smoking, tried the chantix and stopped smoking when she had her cancer but restarted again after her surgery, documented as of this encounter (statuses as of 05/08/2022) [facility] History of Past illness Narrative* Problem Noted Date Resolved Date COPD (chronic obstructive pulmonary disease) 06/04/2019 Overview: She has copd from the smoking but does not want to stop, She wants to quit smoking, tried the chantix and stopped smoking when she had her cancer but restarted again after her surgery, documented as of this encounter (statuses as of 05/20/2022) [facility] History of Past illness Narrative* Problem Noted Date Resolved Date COPD (chronic obstructive pulmonary disease) 06/04/2019 Overview: She has copd from the smoking but does not want to stop, She wants to quit smoking, tried the chantix and stopped smoking when she had her cancer but restarted again after her surgery, documented as of this encounter (statuses as of 08/27/2022) [facility] History of Past illness Narrative* Problem Noted Date Resolved Date COPD (chronic obstructive pulmonary disease) 06/04/2019 Overview: She has copd from the smoking but does not want to stop, She wants to quit smoking, tried the chantix and stopped smoking when she had her cancer but restarted again after her surgery, documented as of this encounter (statuses as of 10/01/2022) [facility] History of Past illness Narrative* Problem Noted Date Diagnosed Date Resolved Date COPD (chronic obstructive pulmonary disease) 5 06/04/2019 Overview: She has copd from the smoking but does not want to stop, She wants to quit smoking, tried the chantix and stopped smoking when she had her cancer but restarted again after her surgery, documented as of this encounter (statuses as of 11/28/2022) [facility] History of Past illness Narrative* Problem Noted Date Diagnosed Date Resolved Date COPD (chronic obstructive pulmonary disease) 5 06/04/2019 Overview: She has copd from the smoking but does not want to stop, She wants to quit smoking, tried the chantix and stopped smoking when she had her cancer but restarted again after her surgery, documented as of this encounter (statuses as of 11/30/2022) [facility] History of Past illness Narrative* Problem Noted Date Diagnosed Date Resolved Date COPD (chronic obstructive pulmonary disease) 5 06/04/2019 Overview: She has copd from the smoking but does not want to stop, She wants to quit smoking, tried the chantix and stopped smoking when she had her cancer but restarted again after her surgery, documented as of this encounter (statuses as of 03/11/2023) [facility] + Plan note No data available for this section [facility] Evaluation note* Diagnosis Vitamin D deficiency- Primary Unspecified vitamin D deficiency [facility] [place] [facility] Diagnosis Microscopic hematuria- Primary [facility] [place] [facility]* Diagnosis Acute right-sided back pain, unspecified back location- Primary [facility] [place] [facility] Diagnosis Encounter for screening mammogram for breast cancer [facility] [place] [facility]* Diagnosis Burning with urination- Primary Dysuria documented in this encounter [facility] note* Diagnosis Mixed hyperlipidemia- Primary Stage 3b chronic kidney disease (HCC) Tobacco use Tobacco use disorder Hx of colonic polyps Personal history of colonic polyps documented in this encounter [facility] note* Diagnosis Tobacco use- Primary Tobacco use disorder documented in this encounter [facility] note* Diagnosis Cancer of left ureter (HCC)- Primary Cervical cancer (HCC) Malignant neoplasm of cervix uteri, unspecified site Foot drop, right Other acquired deformity of ankle and foot Depression Depressive disorder, not elsewhere classified COPD (chronic obstructive pulmonary disease) (HCC) Chronic airway obstruction, not elsewhere classified Cervical pain Cervicalgia Left wrist pain Pain in joint, forearm Left forearm pain Pain in limb documented in this encounter [facility] note* Diagnosis Cancer of left ureter (HCC)- Primary Cervical cancer (HCC) Malignant neoplasm of cervix uteri, unspecified site Foot drop, right Other acquired deformity of ankle and foot Depression Depressive disorder, not elsewhere classified COPD (chronic obstructive pulmonary disease) (HCC) Chronic airway obstruction, not elsewhere classified Cervical pain Cervicalgia Acute right-sided back pain, unspecified back location documented in this encounter [facility] note* Diagnosis Cancer of left ureter (HCC)- Primary Cervical cancer (HCC) Malignant neoplasm of cervix uteri, unspecified site Foot drop, right Other acquired deformity of ankle and foot Depression Depressive disorder, not elsewhere classified COPD (chronic obstructive pulmonary disease) (HCC) Chronic airway obstruction, not elsewhere classified Cervical pain Cervicalgia Acute pain of left knee documented in this encounter [facility] note* Diagnosis Cancer of left ureter (HCC)- Primary Cervical cancer (HCC) Malignant neoplasm of cervix uteri, unspecified site Foot drop, right Other acquired deformity of ankle and foot Depression Depressive disorder, not elsewhere classified COPD (chronic obstructive pulmonary disease) (HCC) Chronic airway obstruction, not elsewhere classified Cervical pain Cervicalgia Mixed hyperlipidemia documented in this encounter [facility] note* Diagnosis Cancer of left ureter (HCC)- Primary Cervical cancer (HCC) Malignant neoplasm of cervix uteri, unspecified site Foot drop, right Other acquired deformity of ankle and foot Depression Depressive disorder, not elsewhere classified COPD (chronic obstructive pulmonary disease) (HCC) Chronic airway obstruction, not elsewhere classified Cervical pain Cervicalgia Encounter for screening [facility] Cancer of left ureter (HCC)- Primary Cervical cancer (HCC) Malignant neoplasm of cervix uteri, unspecified site Foot drop, right Other acquired deformity of ankle and foot Depression Depressive disorder, not elsewhere classified COPD (chronic obstructive pulmonary disease) (HCC) Chronic airway obstruction, not elsewhere classified Cervical pain Cervicalgia Urinary frequency- Primary Acute cystitis without hematuria Acute cystitis [facility] [place] [facility] Diagnosis Cancer of left ureter (HCC)- Primary Cervical cancer (HCC) Malignant neoplasm of cervix uteri, unspecified site Foot drop, right Other acquired deformity of ankle and foot Depression Depressive disorder, not elsewhere classified COPD (chronic obstructive pulmonary disease) (HCC) Chronic airway obstruction, not elsewhere classified Cervical pain Cervicalgia UTI symptoms- Primary Other symptoms involving urinary system Dupuytren's contracture of left hand Contracture of palmar fascia Stage 3b chronic kidney disease (HCC) documented [facility] [place] [facility]* Diagnosis Cancer of left ureter (HCC)- Primary Cervical cancer (HCC) Malignant neoplasm of cervix uteri, unspecified site Foot drop, right Other acquired deformity of ankle and foot Depression Depressive disorder, not elsewhere classified COPD (chronic obstructive pulmonary disease) (HCC) Chronic airway obstruction, not elsewhere classified Cervical pain Cervicalgia Right hip pain- Primary Pain in joint, pelvic region and thigh Foot drop, right foot documented in this encounter [facility] Diagnosis Cancer of left ureter (HCC)- Primary Cervical cancer (HCC) Malignant neoplasm of cervix uteri, unspecified site Foot drop, right Other acquired deformity of ankle and foot Depression Depressive disorder, not elsewhere classified COPD (chronic obstructive pulmonary disease) (HCC) Chronic airway obstruction, not elsewhere classified Cervical pain Cervicalgia Acute cough- Primary URI, acute Acute upper respiratory infections of unspecified site Acute exacerbation of chronic obstructive pulmonary disease (HCC) Obstructive chronic bronchitis with exacerbation Acute cough documented in this encounter [facility] [place] [facility]* Diagnosis Cancer of left ureter (HCC)- Primary Cervical cancer (HCC) Malignant neoplasm of cervix uteri, unspecified site Foot drop, right Other acquired deformity of ankle and foot Depression Depressive disorder, not elsewhere classified COPD (chronic obstructive pulmonary disease) (HCC) Chronic airway obstruction, not elsewhere classified Cervical pain Cervicalgia Acute cough [facility] No data available for this section [facility] Progress note No data available for this section [facility] Reason for referral (narrative)* Diagnostic Procedure Only (Urgent) - Closed Specialty Diagnoses / Procedures Referred By Contac t Referred To Contact XR IMAGING Diagnoses Acute right-sided back pain, unspecified back location Procedures XR LUMBAR GENERAL 3V AP/LAT/L5-S1 RADEX SPINE LUMBOSACRAL 2/3 VIEWS Lokesh Plummer APRN.TREATMENT TECHNICIAN [address] [place] [address] Xr Imaging Referral ID Status Reason Start Date Expiration Date V isits Requested Visits Authorized [id number] Closed Auto-Generate d Referral 11/22/2021 12/22/2022 1 1 * Diagnostic Procedure Only (Urgent) - Closed Specialty Diagnoses / Procedures Referred By Contac t Referred To Contact XR IMAGING Diagnoses Acute right-sided back pain, unspecified back location Procedures XR SACRUM/COCCYX 3V AP/LAT RADEX SACRUM & COCCYX MINIMUM 2 VIEWS Lokesh Plummer APRN.TREATMENT TECHNICIAN [address] [place] [address] Xr Imaging Referral ID Status Reason Start Date Expiration Date V isits Requested Visits Authorized [id number] Closed Auto-Generate d Referral 11/22/2021 12/22/2022 1 1 * Diagnostic Procedure Only (Urgent) - Closed Specialty Diagnoses / Procedures Referred By Contac t Referred To Contact XR IMAGING Diagnoses Acute right-sided back pain, unspecified back location Procedures XR HIP GENERAL 3V PELV/AP/LAT RIGHT RADEX HIP UNILATERAL WITH PELVIS 2-3 VIEWS Lokesh Plummer APRN.TREATMENT TECHNICIAN [address] [place] [address] Xr Imaging Referral ID Status Reason Start Date Expiration Date V isits Requested Visits Authorized [id number] Closed Auto-Generate d Referral 11/22/2021 12/22/2022 1 1 [facility] for referral (narrative)* Diagnostic Procedure Only (Routine) - Pending Review Specialty Diagnoses / Procedures Referred By Sourav t Referred To Contact BR IMAGING Diagnoses Encounter for screening mammogram for breast cancer Procedures LOENOR SCREENING SCREENING MAMMOGRAPHY BI 2-VIEW BREAST INC CAD Tarah Root MD [address] [place] [address] Br Imaging [address] [place] [address] Referral ID Status Reason Start Date Expiration Date Visits Requested Visits Authorized [id number] Pending Review Auto-Generat ed Referral 05/15/2022 06/14/2023 1 1 [facility] for referral (narrative)* Diagnostic Procedure Only (Routine) - Closed Specialty Diagnoses / Procedures Referred By Sourav t Referred To Contact XR IMAGING Diagnoses Left forearm pain Procedures XR FOREARM GENERAL 2V AP/LAT LEFT RADEX FOREARM 2 VIEWS HerreralogCarole joyce APRN.CNP [address] [place] [address] [place] [address] Referral ID Status Reason Start Date Expiration Date V isits Requested Visits Authorized [id number] Closed Auto-Generate d Referral 08/27/2022 09/26/2023 1 1 * Diagnostic Procedure Only (Routine) - Closed Specialty Diagnoses / Procedures Referred By Sourav t Referred To Contact XR IMAGING Diagnoses Left wrist pain Procedures XR WRIST GENERAL 3V PA/LAT/OBL LEFT RADEX WRIST COMPLETE MINIMUM 3 VIEWS Carole Partida APRN.CNP [address] [place] [address] [place] [address] Referral ID Status Reason Start Date Expiration Date V isits Requested Visits Authorized [id number] Closed Auto-Generate d Referral 08/27/2022 09/26/2023 1 1 [facility] for referral (narrative)* Diagnostic Procedure Only (Urgent) - Closed Specialty Diagnoses / Procedures Referred By Contac t Referred To Contact XR IMAGING Diagnoses Acute right-sided back pain, unspecified back location Procedures XR LUMBAR GENERAL 3V AP/LAT/L5-S1 RADEX SPINE LUMBOSACRAL 2/3 VIEWS Lokesh Plummer APRN.TREATMENT TECHNICIAN [address] [place] [address] [place] [address] Referral ID Status Reason Start Date Expiration Date V isits Requested Visits Authorized [id number] Closed Auto-Generate d Referral 11/22/2021 12/22/2022 1 1 * Diagnostic Procedure Only (Urgent) - Closed Specialty Diagnoses / Procedures Referred By Contac t Referred To Contact XR IMAGING Diagnoses Acute right-sided back pain, unspecified back location Procedures XR SACRUM/COCCYX 3V AP/LAT RADEX SACRUM & COCCYX MINIMUM 2 VIEWS Lokesh Plummer APRN.TREATMENT TECHNICIAN [address] [place] [address] [place] [address] Referral ID Status Reason Start Date Expiration Date V isits Requested Visits Authorized [id number] Closed Auto-Generate d Referral 11/22/2021 12/22/2022 1 1 * Diagnostic Procedure Only (Urgent) - Closed Specialty Diagnoses / Procedures Referred By Contac t Referred To Contact XR IMAGING Diagnoses Acute right-sided back pain, unspecified back location Procedures XR HIP GENERAL 3V PELV/AP/LAT RIGHT RADEX HIP UNILATERAL WITH PELVIS 2-3 VIEWS Lokesh Plummer APRN.TREATMENT TECHNICIAN [address] [place] [address] [place] [address] Referral ID Status Reason Start Date Expiration Date V isits Requested Visits Authorized [id number] Closed Auto-Generate d Referral 11/22/2021 12/22/2022 1 1 [facility] for referral (narrative)* Diagnostic Procedure Only (Routine) - Closed Specialty Diagnoses / Procedures Referred By Sourav tenorio Referred To Contact XR IMAGING Diagnoses Acute pain of left knee Procedures XR KNEE GENERAL 4V AP BOTH/PA BOTH/LAT/MERC LT KNEE AP-WGT/LAT/MERCHANT PodlogCarole joyce APRN.TREATMENT TECHNICIAN [address] [place] [address] [place] [address] Referral ID Status Reason Start Date Expiration Date V isits Requested Visits Authorized [id number] Closed Auto-Generate d Referral 01/17/2021 02/16/2022 1 1 [facility] for referral (narrative)* Diagnostic Procedure Only (Routine) - New Request Specialty Diagnoses / Procedures Referred By Sourav tenorio Referred To Contact BR IMAGING Diagnoses Encounter for screening mammogram for breast cancer Procedures LEONOR SCREENING W JAVI SCREENING DIGITAL BREAST TOMOSYNTHESIS BI SCREENING MAMMOGRAPHY BI 2-VIEW BREAST INC CAD Tarah Root MD [address] [place] [address] Br Imaging [address] [place] [address] Referral ID Status Reason Start Date Expiration Date Visits Requested Visits Authorized [id number] New Request Auto-Generat ed Referral 04/23/2025 1 1 [facility] for visit Narrative* Diagnostic Procedure Only (Routine) - Closed Specialty Diagnoses / Procedures Referred By Sourav tenorio Referred To Contact XR IMAGING Diagnoses Left forearm pain Procedures XR FOREARM GENERAL 2V AP/LAT LEFT RADEX FOREARM 2 VIEWS PodlogCarole joyce APRN.TREATMENT TECHNICIAN [address] [place] [address] [place] [address] Referral ID Status Reason Start Date Expiration Date V isits Requested Visits Authorized [id number] Closed Auto-Generate d Referral 08/27/2022 09/26/2023 1 1 [facility] for visit Narrative* Diagnostic Procedure Only (Urgent) - Closed Specialty Diagnoses / Procedures Referred By Contac t Referred To Contact XR IMAGING Diagnoses Acute right-sided back pain, unspecified back location Procedures XR LUMBAR GENERAL 3V AP/LAT/L5-S1 RADEX SPINE LUMBOSACRAL 2/3 VIEWS Lokesh Plummer APPLICATION SERVICES MANAGER.TREATMENT TECHNICIAN [address] [place] [address] [place] [address] Referral ID Status Reason Start Date Expiration Date V isits Requested Visits Authorized [id number] Closed Auto-Generate d Referral 11/22/2021 12/22/2022 1 1 [facility] for visit Narrative* Diagnostic Procedure Only (Routine) - Closed Specialty Diagnoses / Procedures Referred By Contac t Referred To Contact XR IMAGING Diagnoses Acute pain of left knee Procedures XR KNEE GENERAL 4V AP BOTH/PA BOTH/LAT/MERC LT KNEE AP-WGT/LAT/MERCHANT PodCarole lawler APRN.TREATMENT TECHNICIAN [address] [place] [address] [place] [address] Referral ID Status Reason Start Date Expiration Date V isits Requested Visits Authorized [id number] Closed Auto-Generate d Referral 01/17/2021 02/16/2022 1 1 [facility] Summary Purpose Family History No Family History Records FoundNo Family History Records FoundNo Family History Records FoundNo Family History Records FoundNo Family History Records FoundNo Family History Records Found Advance Directives No Advanced Directives Records FoundDocuments on File Type Date Recorded 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 Advance Directive(s) 04/17/2016 8:34 AM Reason for Referral Specialty Diagnoses / Procedures Referred By Contac t Referred To Contact Diagnoses Tobacco use Procedures CONSULT LUNG CANCER SCREENING CLINIC PodCarole lawler APRN.TREATMENT TECHNICIAN [address] [place] [address] Referral ID Status Reason Start Date Expiration Date Visits Requested Visits Authorized [id number] Ref Not Required PCP Requested Referral 11/17/2023 02/15/2024 1 1 Specialty Diagnoses / Procedures Referred By Contac t Referred To Contact General Surgery Diagnoses Hx of colonic polyps Procedures CONSULT TO GENERAL SURGERY OFFICE/OUTPATIENT [facility] MDM 60 MINUTES Podlogar, EUNICE Lam.TREATMENT TECHNICIAN [address] [place] [address] Referral ID Status Reason Start Date Expiration Date Visits Requested Visits Authorized [id number] Authorized PCP Requested Referral 11/17/2023 11/16/2024 1 1 Additional Source Comments INFORMATION SOURCE (unrecogn ized section and content) DATE CREATED AUTHOR 10/02/2017 [facility] DATE CREATED AUTHOR AUTHOR'S ORGANIZ ATION 07/25/2018 [facility] DATE CREATED AUTHOR AUTHOR'S ORGANIZ ATION 04/23/2019 [facility] DATE CREATED AUTHOR AUTHOR'S ORGANIZ ATION 11/07/2020 [facility] DATE CREATED AUTHOR AUTHOR'S ORGANIZ ATION 05/08/2022 [facility] ([place]) DATE CREATED AUTHOR AUTHOR'S ORGANIZ ATION 2025 [facility] Source Comments (unrecognize d section and content) In the event this informatio n is protected by the Federal Confidentiality of Alcohol and Drug Abuse Patient Records regulations: The Federal rules restrict any use of the information to criminally investigate or prosecute any alcohol or drug abuse patient.[facility] Center[facility] the event this information is protected by the Federal Confidentiality of Alcohol and Drug Abuse Patient Records regulations: The Federal rules restrict any use of the information to criminally investigate or prosecute any alcohol or drug abuse patient.[facility]In the event this information is protected by the Federal Confidentiality of Alcohol and Drug Abuse Patient Records regulations: The Federal rules restrict any use of the information to criminally investigate or prosecute any alcohol or drug abuse patient.[facility] CenterIn the event this information is protected by the Federal Confidentiality of Alcohol and Drug Abuse Patient Records regulations: The Federal rules restrict any use of the information to criminally investigate or prosecute any alcohol or drug abuse patient.[facility] CenterIn the event this information is protected by the Federal Confidentiality of Alcohol and Drug Abuse Patient Records regulations: The Federal rules restrict any use of the information to criminally investigate or prosecute any alcohol or drug abuse patient.[facility] CenterIn the event this information is protected by the Federal Confidentiality of Alcohol and Drug Abuse Patient Records regulations: The Federal rules restrict any use of the information to criminally investigate or prosecute any alcohol or drug abuse patient.[facility] CenterIn the event this information is protected by the Federal Confidentiality of Alcohol and Drug Abuse Patient Records regulations: The Federal rules restrict any use of the information to criminally investigate or prosecute any alcohol or drug abuse patient.[facility] CenterIn the event this information is protected by the Federal Confidentiality of Alcohol and Drug Abuse Patient Records regulations: The Federal rules restrict any use of the information to criminally investigate or prosecute any alcohol or drug abuse patient.[facility] CenterIn the event this information is protected by the Federal Confidentiality of Alcohol and Drug Abuse Patient Records regulations: The Federal rules restrict any use of the information to criminally investigate or prosecute any alcohol or drug abuse patient.[facility] CenterIn the event this information is protected by the Federal Confidentiality of Alcohol and Drug Abuse Patient Records regulations: The Federal rules restrict any use of the information to criminally investigate or prosecute any alcohol or drug abuse patient.[facility] CenterIn the event this information is protected by the Federal Confidentiality of Alcohol and Drug Abuse Patient Records regulations: The Federal rules restrict any use of the information to criminally investigate or prosecute any alcohol or drug abuse patient.[facility] CenterIn the event this information is protected by the Federal Confidentiality of Alcohol and Drug Abuse Patient Records regulations: The Federal rules restrict any use of the information to criminally investigate or prosecute any alcohol or drug abuse patient.[facility] CenterIn the event this information is protected by the Federal Confidentiality of Alcohol and Drug Abuse Patient Records regulations: The Federal rules restrict any use of the information to criminally investigate or prosecute any alcohol or drug abuse patient.[facility] CenterIn the event this information is protected by the Federal Confidentiality of Alcohol and Drug Abuse Patient Records regulations: The Federal rules restrict any use of the information to criminally investigate or prosecute any alcohol or drug abuse patient.[facility] CenterIn the event this information is protected by the Federal Confidentiality of Alcohol and Drug Abuse Patient Records regulations: The Federal rules restrict any use of the information to criminally investigate or prosecute any alcohol or drug abuse patient.[facility] CenterIn the event this information is protected by the Federal Confidentiality of Alcohol and Drug Abuse Patient Records regulations: The Federal rules restrict any use of the information to criminally investigate or prosecute any alcohol or drug abuse patient.[facility] CenterIn the event this information is protected by the Federal Confidentiality of Alcohol and Drug Abuse Patient Records regulations: The Federal rules restrict any use of the information to criminally investigate or prosecute any alcohol or drug abuse patient.[facility] CenterIn the event this information is protected by the Federal Confidentiality of Alcohol and Drug Abuse Patient Records regulations: The Federal rules restrict any use of the information to criminally investigate or prosecute any alcohol or drug abuse patient.[facility] CenterIn the event this information is protected by the Federal Confidentiality of Alcohol and Drug Abuse Patient Records regulations: The Federal rules restrict any use of the information to criminally investigate or prosecute any alcohol or drug abuse patient.[facility] CenterIn the event this information is protected by the Federal Confidentiality of Alcohol and Drug Abuse Patient Records regulations: The Federal rules restrict any use of the information to criminally investigate or prosecute any alcohol or drug abuse patient.[facility] CenterIn the event this information is protected by the Federal Confidentiality of Alcohol and Drug Abuse Patient Records regulations: The Federal rules restrict any use of the information to criminally investigate or prosecute any alcohol or drug abuse patient.[facility] CenterIn the event this information is protected by the Federal Confidentiality of Alcohol and Drug Abuse Patient Records regulations: The Federal rules restrict any use of the information to criminally investigate or prosecute any alcohol or drug abuse patient.[facility] CenterIn the event this information is protected by the Federal Confidentiality of Alcohol and Drug Abuse Patient Records regulations: The Federal rules restrict any use of the information to criminally investigate or prosecute any alcohol or drug abuse patient.[facility] CenterIn the event this information is protected by the Federal Confidentiality of Alcohol and Drug Abuse Patient Records regulations: The Federal rules restrict any use of the information to criminally investigate or prosecute any alcohol or drug abuse patient.[facility] CenterIn the event this information is protected by the Federal Confidentiality of Alcohol and Drug Abuse Patient Records regulations: The Federal rules restrict any use of the information to criminally investigate or prosecute any alcohol or drug abuse patient.[facility] CenterIn the event this information is protected by the Federal Confidentiality of Alcohol and Drug Abuse Patient Records regulations: The Federal rules restrict any use of the information to criminally investigate or prosecute any alcohol or drug abuse patient.[facility] Reason for Visit (unrecogniz ed section and content) Reason Comments Results Reason Comments Back Pain Pt reported lower ba ck pain x3 days rated 9 Reason Comments Insurance Authorization Lidocaine 5% pat ches Reason Onset Date Comments Refill Request 05/08/2022 Reason Onset Date Comments Refill Request 08/23/2022 Reason Comments Urinary Problem Burning and urgency x 3 days Reason Onset Date Comments Refill Request 03/10/2023 Reason Comments F/U 6 months Reason Onset Date Comments Refill Request 01/27/2024 Reason Comments Urinary Frequency Frequency, burning a nd fever x 2 days Reason Comments Follow Up UTI; restarted sympt oms x2 days ago with pain and urinary frequency Reason Onset Date Comments Results 09/24/2024 Reason Comments Hip Pain And right leg pain x couple months Reason Comments Cough Chest congestion, ru nny nose x6 days Care Teams (unrecognized sec tion and content) Global Climate Change Researcher Relationship Specialty Start Date End Date Tarah Root MD [address] [place], [place] [id number] PCP - General Family Practice 03/12/19 Global Climate Change Researcher Relationship Specialty Start Date End Date Tarah Root MD [address] [place], [place] [id number] PCP - General Family Practice 03/12/19 Global Climate Change Researcher Relationship Specialty Start Date End Date Tarah Root MD [address] [place], [place] [id number] PCP - General Family Practice 03/12/19 Global Climate Change Researcher Relationship Specialty Start Date End Date Tarah Root MD [address] [place] [address] PCP - General Family Practice 03/12/19 Global Climate Change Researcher Relationship Specialty Start Date End Date Tarah Root MD [address] [place] [address] PCP - General Family Practice 03/12/19 Global Climate Change Researcher Relationship Specialty Start Date End Date Tarah Root MD [address] [place] [address] PCP - General Family Medicine 03/12/19 Global Climate Change Researcher Relationship Specialty Start Date End Date Tarah Root MD [address] [place] [address] PCP - General Family Medicine 03/12/19 Global Climate Change Researcher Relationship Specialty Start Date End Date Tarah Root MD [address] [place] [address] PCP - General Family Medicine 03/12/19 Global Climate Change Researcher Relationship Specialty Start Date End Date Tarah Root MD [address] [place] [address] PCP - General Family Medicine 03/12/19 Global Climate Change Researcher Relationship Specialty Start Date End Date Tarah Root MD [address] [place] [address] PCP - General Family Medicine 03/12/19 Global Climate Change Researcher Relationship Specialty Start Date End Date Tarah Root MD [address] [place] [address] PCP - General Family Medicine 03/12/19 Global Climate Change Researcher Relationship Specialty Start Date End Date Tarah Root MD [address] [place] [address] PCP - General Family Medicine 03/12/19 Global Climate Change Researcher Relationship Specialty Start Date End Date Tarah Root MD [address] [place] [address] PCP - General Family Medicine 03/12/19 Global Climate Change Researcher Relationship Specialty Start Date End Date Tarah Root MD [address] [place] [address] PCP - General Family Medicine 03/12/19 Global Climate Change Researcher Relationship Specialty Start Date End Date Tarah Root MD [address] [place] [address] PCP - General Family Medicine 03/12/19 Global Climate Change Researcher Relationship Specialty Start Date End Date Tarah Root MD [address] [place] [address] PCP - General Family Medicine 03/12/19 Global Climate Change Researcher Relationship Specialty Start Date End Date Tarah Root MD [address] [place] [address] PCP - General Family Medicine 03/12/19 PodlogCarole joyce APRN.TREATMENT TECHNICIAN [address] [place] [address] Research Chemist Family Medicine 03/20/24 Global Climate Change Researcher Relationship Specialty Start Date End Date Tarah Root MD [address] [place] [address] PCP - General Family Medicine 03/12/19 PodlogCarole joyce APRN.TREATMENT TECHNICIAN [address] [place] [address] Research Chemist Family [facility] 03/20/24 Global Climate Change Researcher Relationship Specialty Start Date End Date Tarah Root MD [address] [place] [address] PCP - General Family Medicine 03/12/19 PodlogarCarole APRN.TREATMENT TECHNICIAN [address] [place] [address] Research Chemist [facility] 03/20/24 Global Climate Change Researcher Relationship Specialty Start Date End Date Tarah Root MD [address] [place] [address] PCP - General Family Medicine 03/12/19 PodlogarCarole APRN.TREATMENT TECHNICIAN [address] [place] [address] [facility] 03/20/24 Alison Collins APRN.TREATMENT TECHNICIAN [address] [place] [address] [facility] 09/[facility]/24 Global Climate Change Researcher Relationship Specialty Start Date End Date Tarah Root MD [address] [place] [address] PCP - General Family Medicine 03/12/19 PodlogCarole joyce APRN.TREATMENT TECHNICIAN [address] [place] [address] [facility] Family [facility] 03/20/24 Alison Collins APRN.TREATMENT TECHNICIAN [address] [place] [address] [facility] 09/23/24 Global Climate Change Researcher Relationship Specialty Start Date End Date Tarah Root MD [address] [place] [address] PCP - General Family Medicine 03/12/19 Podlogar, Carole, APPLICATION SERVICES MANAGER.TREATMENT TECHNICIAN [address] [place] [address] [facility] 03/20/24 Alison Collins APRN.TREATMENT TECHNICIAN [address] [place] [address] [facility] 09/23/24 Global Climate Change Researcher Relationship Specialty Start Date End Date Tarah Root MD [address] [place] [address] PCP - General Family Medicine 03/12/19 Podlogar, Carole, APPLICATION SERVICES MANAGER.TREATMENT TECHNICIAN [address] [place] [address] [facility] Family [facility] 03/20/24 Alison Collins APPLICATION SERVICES MANAGER.TREATMENT TECHNICIAN [address] [place] [address] [facility] Medicine 09/23/24 Global Climate Change Researcher Relationship Specialty Start Date End Date Tarah Root MD [address] [place] [address] PCP - General Family Medicine 03/12/19 Podlogar, Carole, APPLICATION SERVICES MANAGER.TREATMENT TECHNICIAN [address] [place] [address] [facility] 03/20/24 Alison Collins APRN.TREATMENT TECHNICIAN [address] [place] [address] [facility] 09/23/24 Care Team (unrecognized sect ion and content) Care Team Personnel Name: TARAH ROOT MD Member Role: Primary Care Physician Address: Address: [address] [place] [address] FOR RECORDS PERTAINING TO PATIENTS WHO ARE OR HAVE BEEN ENROLLED IN A CHEMICAL DEPENDENCY/SUBSTANCEABUSE PROGRAM, SOME INFORMATION MAY BE OMITTED. This clinical summary was aggregated from multiple sources. Caution should be exercised in using it in the provision of clinical care. This summary normalizes information from multiple sources, and as a consequence, information in this document may materially change the coding, format and clinical context of patient data. In addition, data may be omitted in some cases. CLINICAL DECISIONS SHOULD BE BASED ON THE PRIMARY CLINICAL RECORDS. [facility] [employer] provides no warranty or guarantee of the accuracy or completeness of information in this document.
--- NOTE | 2025-02-20 19:36 | EDS_ITS ---
HPI History of Present Illness Chief Complaint: Wound Narrative Narrative: Chief complaint and HPI: 65-year-old female presents for evaluation of right great toe pain after ingrown toenail removal. Patient states she had an ingrown toenail for a while. States she had it removed by Dr. Romano on 02/17. Patient states she has been doing toe soaking and Neosporin. States since day 3 she has been having pain in that toe. She denies any fever, chills, nausea, vomiting, drainage/purulence. Review of systems: See HPI Medications: As listed on the chart Allergies: As listed on the chart PFSH: Per chart Vital signs: As listed on the chart. Reviewed. Physical exam: Gen: A&O x3, NAD ENT: Moist mucous membranes CV: Regular rate Resp: Nonlabored respirations Musc: Full range of motion of the right lower extremity including the foot and toes, the skin of the distal right great toe is macerated as if it has been soaking in water for too long-skin pale, healing wound from where partial nail was removed without erythema, warmth, purulence, crepitus, necrosis or drainage. Area is tender to palpation. No lymphatic streaking. DP/PT pulses +2. Good capillary refill. Sensation intact. Compartments soft. Psych: Cooperative, appropriate mood and affect PFS PFSH Medical History no medical history Home Medications ?Medication ?Instructions ?Recorded ?Last Taken ?Type hydrocodone-acetaminophen 5-325mg 1 - 2 tab PO Q6H PRN PRN Pain 4 07/06/17 Unknown Rx 5mg-325mg days ##12 clopidogrel 75 mg tablet 75 mg PO DAILY 02/20/25 Unkn own History Allergy/AdvReac Type Severity Reaction Status Date / Time Penicillins Allergy Hives Verified 02/20/25 17:07 sulfamethoxazole (From AdvReac Nausea Verified 02/20/25 17:07 Bactrim) trimethoprim (From Bactrim) AdvReac Nausea Verified 02/20/25 17:07 Social History Smoking Status: Current every day smoker tobacco type: cigarettes EXAM Physical Exam Const Vital Signs: 02/20/25 17:05 02/20/25 18:28 Temperature 98 F 98 F Temperature Source Oral Temporal Pulse Rate 78 65 Respiratory Rate 16 14 Blood Pressure 116/59 L 113/64 Blood Pressure Mean 78 80 Pulse Ox 97 99 Oxygen Delivery Method Room Air Room Air MDM MDM MDM Narrative Medical decision making narrative: 65-year-old female presents for evaluation of right great toe pain after ingrown toenail removal. Patient states she had an ingrown toenail for a while. States she had it removed by Dr. Romano on 02/17. Patient states she has been doing toe soaking and applying Neosporin. States since day 3 she has been having pain in that toe. She denies any fever, chills, nausea, vomiting, drainage/purulence. On presentation, patient no acute distress. Vitals are stable. See physical exam findings. No obvious infection. Differential diagnosis includes but is not limited to postoperative pain from healing wound, early cellulitis. Low suspicion for fracture or osteomyelitis however on the differential. Will obtain x-ray of the toe. Oxycodone ordered for pain. X-ray of the toe was personally viewed interpreted by me, ED physician without acute fracture or dislocation. No obvious erosion. Radiology in agreement. Given that patient has had a procedure done by podiatry, podiatry was consulted and patient was discussed with Dr. Augustin. Plan is for me to place Betadine soaked gauze on the wound and dress. Have her repeat the same thing in the morning. No soaking or Neosporin. Hold off on antibiotics for now. I did apply the Betadine gauze. They will see her in the office tomorrow. Patient confirmed understanding plan. Patient stable to discharge home. Impression: 1. Right great toe pain 2. Recent ingrown toenail removal of right great Radiography Diagnostic Testing: Clinical Impression(s) from Imaging Studies Toe X-Ray 02/20/25 19:10 IMPRESSION: No acute or aggressive osseous abnormality. Reading Location: [facility] Discharge Plan Triage Chief Complaint: Wound ED Provider: Willam Mathew Dx/Rx/DC Orders Prescriptions: No Action hydrocodone-acetaminophen 1 TABLET tablet 1 - 2 tab PO Q6H PRN PRN (Reason: Pain) 4 Days Qty: 12 0RF clopidogrel 75 mg tablet 75 mg PO DAILY Primary Care Provider: Rajesh Root Referrals: Rajesh Root MD [Primary Care Provider, Family Practice] Print Language: Yoruba
[2025-02-20 21:00] VITALS: PULSE 69; RESP 18; O2SAT 99
[2025-02-20 21:11] VITALS: BP 121/65; PULSE 62; RESP 14; TEMP 36.6; O2SAT 99
== END 2025-02-20 21:27 | disposition home or self-care (01) ==
PROVIDERS: Emergency Provider Surgery; PCP Family Medicine; Visit Provider Surgery
DX: L60.0 Ingrowing nail (principal); F17.210 Nicotine dependence, cigarettes, uncomplicated; Z79.02 Long term (current) use of antithrombotics/antiplatelets; Z98.890 Other specified postprocedural states
CPT/HCPCS: 73660; 99282